=== PATIENT | female | born 1965 | race Caucasian/White ===

== ENCOUNTER → 2017-06-11 08:34 | Outpatient (CLI) | payer BC, SELFPAY ==
[2017-06-11 09:05] LABS: Hematocrit 25.8 % (37-47); Hemoglobin 8.2 g/dl (12.0-15.0)
[2017-06-11 09:15] VITALS: BP 115/67; PULSE 64; RESP 18; TEMP 36.1; O2SAT 92; BMI 28.8
== END ==
PROVIDERS: Family Provider Family Medicine; PCP Family Medicine; Visit Provider Internal Medicine Nephrology
DX: N18.9 Chronic kidney disease, unspecified (principal); D63.1 Anemia in chronic kidney disease
CPT/HCPCS: 85014; 85018; 96372; J0885

== ENCOUNTER → 2017-07-09 08:29 | Outpatient (CLI) | payer BC, SELFPAY ==
[2017-07-09 08:51] VITALS: BP 115/69; PULSE 69; RESP 16; TEMP 36.9; O2SAT 98; BMI 28.8
[2017-07-09 09:17] LABS: Hematocrit 26.9 % (37-47); Hemoglobin 8.5 g/dl (12.0-15.0)
== END ==
LOC: MEDOUTP 08:30
PROVIDERS: Family Provider Family Medicine; PCP Family Medicine; Visit Provider Internal Medicine Nephrology
DX: N18.4 Chronic kidney disease, stage 4 (severe) (principal); D63.1 Anemia in chronic kidney disease
CPT/HCPCS: 85014; 85018; 96372; J0885

== ENCOUNTER → 2017-08-06 08:24 | Outpatient (CLI) | payer BC, SELFPAY ==
[2017-08-06 08:32] VITALS: BP 125/78; PULSE 70; RESP 14; TEMP 36.4; O2SAT 98; BMI 27.9
[2017-08-06 08:47] LABS: Absolute Lymphocyte Count 1.01 X10^3/ul (0.83-4.51); Absolute Neutrophil Count 1.7 X10^3/uL (2.0-7.7); Basophil# 0.02 X10^3/uL; Basophil% 0.6 % (0-1); Eosinophil# 0.08 X10^3/uL; Eosinophils% 2.5 % (0-5); Hematocrit 26.4 % (37-47); Hemoglobin 8.5 g/dl (12.0-15.0); Lymphocyte # 1.01 X10^3/ul (4.0); Lymphocyte % 32.2 % (19-41); Mean Corp Hgb Conc 32.2 g/gl (32-36); Mean Corpuscular Hgb 31.5 pg (27.0-32.0); Mean Corpuscular Volume 97.8 fL (81-99); Mean Platelet Vol. 9.9 fl (6.2-12.0); Monocyte# 0.29 X10^3/uL; Monocyte% 9.2 % (0-10); Neutrophil # 1.74 X10^3/uL (2.7-7.7); Neutrophil % 55.5 % (47-70); Platelet Count 146 K/mm3 (150-450); RBC Distribution Width SD 41.4 fl (35.1-43.9); White Blood Count 3.1 K/mm3 (4.4-11.0)
[2017-08-06 08:49] LABS: POSITIVE COUNT NO; POSITIVE DIFFERENTIAL NO; POSITIVE MORPHOLOGY NO
[2017-08-06 09:04] LABS: Ferritin 79 ng/mL (8-252); Iron 77 ug/dL (50-170); Iron Binding Capacity,Total 265 ug/dL (250-450); PERCENT IRON SATURATION 29.1 % (15.0-55.0)
== END ==
LOC: MEDOUTP 08:24
PROVIDERS: Family Provider Family Medicine; PCP Family Medicine; Visit Provider Internal Medicine Nephrology
DX: N18.4 Chronic kidney disease, stage 4 (severe) (principal); D63.1 Anemia in chronic kidney disease
CPT/HCPCS: 36415; 82728; 83540; 83550; 85025; 96372; J0885

== ENCOUNTER → 2017-09-03 08:28 | Outpatient (CLI) | payer BC, SELFPAY ==
[2017-09-03 08:42] VITALS: BP 117/71; PULSE 65; RESP 16; TEMP 36.3; O2SAT 99; BMI 27.9
[2017-09-03 08:52] LABS: Absolute Lymphocyte Count 0.94 X10^3/ul (0.83-4.51); Absolute Neutrophil Count 2.4 X10^3/uL (2.0-7.7); Basophil# 0.02 X10^3/uL; Basophil% 0.5 % (0-1); Eosinophil# 0.06 X10^3/uL; Eosinophils% 1.6 % (0-5); Hematocrit 28.1 % (37-47); Lymphocyte # 0.94 X10^3/ul (4.0); Lymphocyte % 25.3 % (19-41); Mean Corpuscular Hgb 31.3 pg (27.0-32.0); Mean Corpuscular Volume 97.6 fL (81-99); Mean Platelet Vol. 10.5 fl (6.2-12.0); Monocyte# 0.31 X10^3/uL; Monocyte% 8.4 % (0-10); Neutrophil # 2.37 X10^3/uL (2.7-7.7); Neutrophil % 63.9 % (47-70); Platelet Count 167 K/mm3 (150-450); RBC Distribution Width CV 11.9 % (11.6-14.6); RBC Distribution Width SD 41.1 fl (35.1-43.9); Red Blood Count 2.88 M/mm3 (4.2-5.4); White Blood Count 3.7 K/mm3 (4.4-11.0)
[2017-09-03 08:54] LABS: POSITIVE COUNT NO; POSITIVE DIFFERENTIAL NO; POSITIVE MORPHOLOGY NO
[2017-09-03 16:35] LABS: Xtra Tube EP Lab EXTRA TUBE
== END ==
LOC: MEDOUTP 08:28
PROVIDERS: Family Provider Family Medicine; PCP Family Medicine; Visit Provider Internal Medicine Nephrology
DX: N18.4 Chronic kidney disease, stage 4 (severe) (principal); D63.1 Anemia in chronic kidney disease
CPT/HCPCS: 36415; 85025; 96372; J0885

== ENCOUNTER → 2017-10-15 08:27 | Outpatient (CLI) | payer BC, SELFPAY ==
[2017-10-15 08:41] VITALS: BP 117/73; PULSE 67; RESP 16; TEMP 36.9; O2SAT 98; BMI 28.3
[2017-10-15 08:59] LABS: Absolute Lymphocyte Count 1.01 X10^3/ul (0.83-4.51); Absolute Neutrophil Count 1.8 X10^3/uL (2.0-7.7); Basophil# 0.01 X10^3/uL; Basophil% 0.3 % (0-1); Eosinophil# 0.07 X10^3/uL; Eosinophils% 2.2 % (0-5); Hemoglobin 8.7 g/dl (12.0-15.0); Lymphocyte # 1.01 X10^3/ul (4.0); Lymphocyte % 32.4 % (19-41); Mean Corp Hgb Conc 32.2 g/gl (32-36); Mean Corpuscular Hgb 30.6 pg (27.0-32.0); Mean Corpuscular Volume 95.1 fL (81-99); Mean Platelet Vol. 10.2 fl (6.2-12.0); Monocyte# 0.19 X10^3/uL; Monocyte% 6.1 % (0-10); Neutrophil # 1.84 X10^3/uL (2.7-7.7); POSITIVE COUNT NO; POSITIVE DIFFERENTIAL NO; POSITIVE MORPHOLOGY NO; Platelet Count 109 K/mm3 (150-450); RBC Distribution Width CV 12.4 % (11.6-14.6); RBC Distribution Width SD 43.2 fl (35.1-43.9); Red Blood Count 2.84 M/mm3 (4.2-5.4); White Blood Count 3.1 K/mm3 (4.4-11.0)
== END ==
PROVIDERS: Family Provider Family Medicine; PCP Family Medicine; Visit Provider Internal Medicine Nephrology
DX: N18.9 Chronic kidney disease, unspecified (principal); D63.1 Anemia in chronic kidney disease
CPT/HCPCS: 36415; 85025; 96372; J0885

== ENCOUNTER → 2018-01-14 11:29 | Outpatient (CLI) | payer BC, SELFPAY ==
[2018-01-14 11:38] VITALS: BP 138/75; PULSE 63; RESP 15; TEMP 36.8; O2SAT 100; BMI 28.8
[2018-01-14 12:01] LABS: Absolute Lymphocyte Count 0.81 X10^3/ul (0.83-4.51); Absolute Neutrophil Count 2.7 X10^3/uL (2.0-7.7); Basophil# 0.02 X10^3/uL; Basophil% 0.5 % (0-1); Eosinophils% 2.5 % (0-5); Hemoglobin 8.4 g/dl (12.0-15.0); Lymphocyte # 0.81 X10^3/ul (4.0); Lymphocyte % 20.4 % (19-41); Mean Corp Hgb Conc 31.1 g/gl (32-36); Mean Corpuscular Hgb 30.8 pg (27.0-32.0); Mean Corpuscular Volume 98.9 fL (81-99); Mean Platelet Vol. 10.1 fl (6.2-12.0); Monocyte# 0.35 X10^3/uL; Monocyte% 8.8 % (0-10); Neutrophil # 2.68 X10^3/uL (2.7-7.7); Neutrophil % 67.5 % (47-70); Platelet Count 165 K/mm3 (150-450); RBC Distribution Width CV 12.2 % (11.6-14.6); RBC Distribution Width SD 42.2 fl (35.1-43.9); Red Blood Count 2.73 M/mm3 (4.2-5.4)
[2018-01-14 12:17] LABS: Ferritin 114 ng/mL (8-252); Iron 98 ug/dL (50-170); Iron Binding Capacity,Total 280 ug/dL (250-450)
[2018-01-14 12:25] LABS: POSITIVE COUNT NO; POSITIVE DIFFERENTIAL NO; POSITIVE MORPHOLOGY NO
== END ==
PROVIDERS: Family Provider Family Medicine; PCP Family Medicine; Referring Provider Internal Medicine Nephrology; Visit Provider Internal Medicine Nephrology
DX: N18.9 Chronic kidney disease, unspecified (principal); D63.1 Anemia in chronic kidney disease
CPT/HCPCS: 36415; 82728; 83540; 83550; 85025; 96372; J0885

== ENCOUNTER → 2018-02-18 08:54 | Outpatient (CLI) | payer BC, SELFPAY ==
[2018-02-18 09:17] VITALS: BP 130/77; PULSE 72; RESP 18; TEMP 37.6; O2SAT 98; BMI 28.8
[2018-02-18 09:46] LABS: Absolute Lymphocyte Count 0.76 X10^3/ul (0.83-4.51); Absolute Neutrophil Count 1.6 X10^3/uL (2.0-7.7); Basophil# 0.02 X10^3/uL; Basophil% 0.7 % (0-1); Eosinophil# 0.07 X10^3/uL; Eosinophils% 2.3 % (0-5); Hematocrit 24.9 % (37-47); Lymphocyte # 0.76 X10^3/ul (4.0); Mean Corp Hgb Conc 32.1 g/gl (32-36); Mean Corpuscular Hgb 31.3 pg (27.0-32.0); Mean Corpuscular Volume 97.3 fL (81-99); Mean Platelet Vol. 9.7 fl (6.2-12.0); Monocyte# 0.55 X10^3/uL; Monocyte% 18.1 % (0-10); Neutrophil # 1.64 X10^3/uL (2.7-7.7); Neutrophil % 53.9 % (47-70); POSITIVE COUNT NO; POSITIVE DIFFERENTIAL NO; POSITIVE MORPHOLOGY NO; Platelet Count 147 K/mm3 (150-450); RBC Distribution Width CV 12.6 % (11.6-14.6); Red Blood Count 2.56 M/mm3 (4.2-5.4)
--- OUTSIDE RECORDS SUMMARY | 2018-04-15 03:48 | XMS RPT_ITS ---
:1965 Author Organization OHIP Care Team Providers Name Role Phone SAMANTHA AGUIRRE (WEB PORTAL DEVELOPER) Attending Unavailable SAMANTHA AGUIRRE (WEB PORTAL DEVELOPER) Attending Unavailable WEE, MIKE C Referring Unavailable WEE, MIKE C Referring Unavailable WEE, MIKE C Referring Unavailable WEE, MIKE C Referring Unavailable SAMANTHA AGUIRRE (WEB PORTAL DEVELOPER) Attending Unavailable SAMANTHA AGUIRRE (WEB PORTAL DEVELOPER) Referring Unavailable WEE, MIKE C Referring Unavailable WEE, MIKE C Referring Unavailable WEE, MIKE C Referring Unavailable WEE, MIKE C Referring Unavailable Getachew, Jayaprakash Attending Unavailable Getachew, Jayaprakash Referring Unavailable Cebul III, Primary Care Unavailable Samantha Wall Attending Unavailable Samantha Wall Referring Unavailable Cebul III, Primary Care Unavailable Getachew, Jayaprakash Attending Unavailable Getachew, Jayaprakash Referring Unavailable Cebul III, Primary Care Unavailable Getachew, Jayaprakash Attending Unavailable Getachew, Jayaprakash Referring Unavailable Cebul III, Primary Care Unavailable Getachew, Jayaprakash Attending Unavailable Getachew, Jayaprakash Referring Unavailable Cebul III, Primary Care Unavailable Getachew, Jayaprakash Attending Unavailable Getachew, Jayaprakash Referring Unavailable Cebul III, Primary Care Unavailable Getachew, Jayaprakash Attending Unavailable Getachew, Jayaprakash Referring Unavailable Cebul III, Primary Care Unavailable Getachew, Jayaprakash Attending Unavailable Getachew, Jayaprakash Referring Unavailable Cebul III, Primary Care Unavailable Getachew, Jayaprakash Attending Unavailable Getachew, Jayaprakash Referring Unavailable Cebul III, Primary Care Unavailable PROBLEMS PROBLEMS DATE TYPE CONDITION / ATTENDING STATUS SOURCE CODE 02/23/2018 Unknown D63.1 - Anemia Getachew, Active [place] [facility] kidney [facility] / D63.1(ICD-10) Repository 12/03/2017 Active Encounter for NA Active [facility] screening [facility] [place] mammogram for Repository malignant neoplasm of breast / Z12.31(ICD-10) 08/12/2017 Active End stage renal NA Active [facility] disease / [facility] [place] N18.6(ICD-10) Repository 03/12/2017 Active Unknown / SAMANTHA AGUIRRE Active [facility] UNK(Unknown) (WEB PORTAL DEVELOPER) [place] Repository PROCEDURES PROCEDURES No Procedure Records FoundRESULTS RESULTS OT D/C OF NON Observed: 03/02/2018 Status: F Source: [place] RETURNING PT 10:13 AM [facility] REPOSITORY [facility] Occupational Therapy [facility] [address] [place], [place] [address] Fax REHABILITATION SERVICES DISCHARGE SUMMARY MR#: [id number] Acct: [id number] Name: ARIC ANNE Rep #: [id number] : 1965 53 From: Bindu OLIVA CHT Referring Dr.: Samantha DESHPANDE Status: REG RCR Eval Date: Discharge Date: HP - Discharge Summary - Patient Information ARIC ANNE was seen in my office for initial evaluation on 01/28/18. The following Plan of Care was established for this patient: Initial Frequency: 1x/Week Initial Duration: 2 Weeks - Anticipated Interventions Anticipated Interventions: Education re Diagnosis, Education re Self-Bandaging Techniques, Education re Skin Care and Precautions, Education re Correct Donning Tech,Care AND Wearing Sched Comp Garments This patient was last seen in our office 01/28/18. Pertinent comments regarding their Occupational therapy will appear below: Client was seen for inital OT eval only. Client was to return for ed. on LE wrap, edema mtg and use of compression socks. Client has not scheduled a follow up visit and due to timelapes in therapy services client is D/C at this time. At this point I will be discontinuing this patient from occupational therapy. I would be happy to see this patient again in the future if found appropriate by the physician. Thank you! HAZEL Ham CHT <Electronically signed by Bindu OLIVA CHT> 03/02/18 1013 CC: Frank Landis III, MD; Samantha DESHPANDE MK Signed PROGRESS Observed: 02/23/2018 Status: COMPLETED Source: [place] 3:08 PM [facility]ON[facility] REPOSITORY HNO ID: [id number] Author: Keegan Gallegos Service: (none) Author Type: Nurse Practitioner Type: Progress Notes Filed: 02/23/2018 3:09 PM Note Text: Subjective HPI Patient presents with: ST, cough, runny nose / drainage: x 1 week Denies any otc treatment for symptoms. Review of Systems Constitutional: Negative for chills, fever and malaise/fatigue. HENT: Positive for congestion and sore throat. Negative for ear pain. Eyes: Negative for discharge and redness. Respiratory: Positive for cough. Negative for hemoptysis, sputum production, shortness of breath and wheezing. Gastrointestinal: Negative for abdominal pain, diarrhea, nausea and vomiting. Skin: Negative for rash. Neurological: Negative for headaches. PAST MEDICAL HISTORY Diagnosis Date - Angioedema Needed intubation - Aortic sclerosis - CKD (chronic kidney disease) stage 4, GFR 15-29 ml/min ([facility]) - Essential hypertension, benign - Heart murmur 01/23/2011 - Hyperparathyroidism due to vitamin D deficiency ([facility]) 04/27/2013 - Lymphedema - Lymphedema of both lower extremities 06/06/2015 - Mitral regurgitation - Polycystic kidney disease 05/31/2012 - Unspecified hypothyroidism - Venous stasis dermatitis of both lower extremities 06/06/2015 - Vitamin D deficiency 04/27/2013 PAST SURGICAL HISTORY Procedure Laterality Date - BALLN ANGIOPLASTY,PERC VENOUS Left 11-01-15 - BX BREAST PERC NEED W/GUID 09/27/06 U/S needle core right breast bx - DELIVERY ONLY 1995 , low cervical - COLONOSCOP W/ OR W/O [facility] SPEC 03/08/15 Colonoscopy - OPN AV ANAS [employer]ARM RADHA TRANSP Left 07-01-15 - PAST SURGICAL HISTORY OF cyst on left hand--benign ALLERGIES Lisinopril; Norvasc [Amlodipine Besylate]; Sulfa (Sulfonamide Antibiotics) MEDICATIONS aMILoride (MIDAMOR) 5 mg tablet TAKE 1 TABLET BY MOUTH EVERY DAY cetirizine (ZYRTEC) 5 mg tablet Take 1 tablet by mouth once daily. levothyroxine (SYNTHROID) 75 mcg tablet Take 1 tablet by mouth once daily. labetalol (TRANDATE) 200 mg tablet Take 1 tablet by mouth twice daily. fluticasone (FLONASE) 50 mcg/actuation nasal spray Use 2 Sprays in each nostril once daily. Rinse mouth after use. furosemide (LASIX) 40 mg tablet TAKE 1 TABLET EVERY DAY atorvastatin (LIPITOR) 10 mg tablet Take 1 tablet by mouth once daily. FERROUS SULFATE (IRON ORAL) Take by mouth. Takes twice daily. Unsure of dosage. aspirin 81 mg chewable tablet Take 1 tablet by mouth once daily. Cholecalciferol, Vitamin D3, 2,000 unit cap Take 1 tablet by mouth once daily. cyanocobalamin (VITAMIN B-12) 1,000 mcg tab Take 1 tablet by mouth once daily. levonorgestrel (MIRENA) 20 mcg/24 hour (5 years) IUD INSERTED IN THE OFFICE Yqajgkcfrkngsgn-Skruimbut-KE (BROMFED DM) 2-30-10 mg/5 mL syrup Take 10 mL by mouth four times daily as needed for up to 7 days. FAMILY HISTORY Problem Relation Age of Onset - Hypertension Mother - Heart Mother ARTIFICIAL HEART VALVE - Breast Cancer Mother - Hypertension Father - Ischemic Heart Disease Father - other (ADPKD) Father - Hypertension Brother kidney disease,obesity - Asthma Son - Heart Son - Stroke Brother - Breast Cancer Maternal Aunt - other (ADPKD) Brother on dialysis - other (ESRD) Brother Social History Substance Use Topics - Smoking status: Never Smoker - Smokeless tobacco: Never Used - Alcohol use Yes Comment: rare Objective Physical Exam Constitutional: She is well-developed, well-nourished, and in no distress. HENT: Head: Normocephalic. Right Ear: Tympanic membrane, external ear and ear canal normal. Left Ear: Tympanic membrane, external ear and ear canal normal. Nose: Rhinorrhea present. Right sinus exhibits no maxillary sinus tenderness and no frontal sinus tenderness. Left sinus exhibits no maxillary sinus tenderness and no frontal sinus tenderness. Mouth/Throat: Posterior oropharyngeal erythema (PND) present. Eyes: Conjunctivae are normal. Neck: Normal range of motion. Neck supple. Cardiovascular: Normal rate, regular rhythm and normal heart sounds. Pulmonary/Chest: Effort normal and breath sounds normal. No respiratory distress. She has no wheezes. Abdominal: Soft. She exhibits no distension. There is no tenderness. Lymphadenopathy: She has no cervical adenopathy. Skin: Skin is warm and dry. No rash noted. Nursing note and vitals reviewed. ASSESSMENT/PLAN: 1. Viral URI with cough - ICD9: 465.9, ICD10: J06.9, B97.89 - Discussed viral etiology and rationale for treatment. - Symptomatic treatment with prn analgesia - Supportive care with fluids and rest - Follow up in 3-5 days if symptoms persist or sooner if worsening of symptoms Prescription instructions reviewed with patient as applicable. Patient advised if symptoms do not improve or if symptoms worsen sooner, to contact their primary care physician. Potential red flag symptoms discussed with the patient. Reviewed appropriate action plan to take if red flag symptoms occur. Patient agreeable to treatment plan. Keegan Gallegos APRN.MARTINE CNOV Observed: 02/23/2018 Status: COMPLETED Source: [place] 10:30 AM [facility] REPOSITORY Office Visit (WSTR) ARIC ANNE ([id number]) 1965 F TRN Date Time Provider Department 02/23/18 10:30 AM KEEGAN GALLEGOS (WEB PORTAL DEVELOPER) WSTR During your visit today, we recorded the following information about you: Temperature Pulse Respiration Blood pressure 97.4 degrees 60/minute 16/minute 138/84 Weight 83.8 kg Keegan Gallegos APRN.MARTINE 02/23/2018 10:50 AM Addendum Treatment for Viral Upper Respiratory Tract Infections Your body will kill off the virus by itself. Additionally, you can prime your body's immune system. This may help you get better more quickly. 1. Drink lots of fluids - at least one gallon of non-caffeinated liquids per day 2. Make sure you are eating well 3. Get plenty of rest - at least 8 hours of sleep per night for adults and more for children We do not have any medications that kill off these viruses. Antibiotics are used to treat bacterial infections; however, they are not active against viral infections. There are some things that might help you feel better, though. 1. Vaporizers, humidifiers, hot showers, and hot fluids help open respiratory and sinus passages 2. Sudafed is a safe and effective decongestant 3. Millen Nasal [place] may offer relief of nasal and head congestion 4. Hans's Vapor Rub placed on a hot towel and draped over the head may relieve congestion 5. Tylenol and Advil help control fevers and headaches 6. Salt water gargles help relieve sore throats 7. Chloraceptic spray or throat lozenges may also help relieve sore throat symptoms 8. Robitussin DM will help loosen up secretions and also provide relief from a cough Occasionally, viral infections turn into something more serious. You should see your doctor or return to the Urgent Care if: 1. You have fevers for longer than five days 2. You have fevers above 102 degrees 3. You are still sick after 10 days 4. You have shortness of breath or wheezing 5. After several days you are getting worse rather than better Keegan Gallegos APRN.MARTINE 02/23/2018 3:09 PM Signed Subjective HPI Patient presents with: ST, cough, runny nose / drainage: x 1 week Denies any otc treatment for symptoms. Review of Systems Constitutional: Negative for chills, fever and malaise/fatigue. HENT: Positive for congestion and sore throat. Negative for ear pain. Eyes: Negative for discharge and redness. Respiratory: Positive for cough. Negative for hemoptysis, sputum production, shortness of breath and wheezing. Gastrointestinal: Negative for abdominal pain, diarrhea, nausea and vomiting. Skin: Negative for rash. Neurological: Negative for headaches. PAST MEDICAL HISTORY Diagnosis Date - Angioedema Needed intubation - Aortic sclerosis - CKD (chronic kidney disease) stage 4, GFR 15-29 ml/min ([facility]) - Essential hypertension, benign - Heart murmur 01/23/2011 - Hyperparathyroidism due to vitamin D deficiency ([facility]) 04/27/2013 - Lymphedema - Lymphedema of both lower extremities 06/06/2015 - Mitral regurgitation - Polycystic kidney disease 05/31/2012 - Unspecified hypothyroidism - Venous stasis dermatitis of both lower extremities 06/06/2015 - Vitamin D deficiency 04/27/2013 PAST SURGICAL HISTORY Procedure Laterality Date - BALLN ANGIOPLASTY,PERC VENOUS Left 11-01-15 - BX BREAST PERC NEED W/GUID 09/27/06 U/S needle core right breast bx - DELIVERY ONLY 1995 , low cervical - COLONOSCOP W/ OR W/O [facility] SPEC 03/08/15 Colonoscopy - OPN AV ANAS FORARM RADHA TRANSP Left 07-01-15 - PAST SURGICAL HISTORY OF cyst on left hand--benign ALLERGIES Lisinopril; Norvasc [Amlodipine Besylate]; Sulfa (Sulfonamide Antibiotics) MEDICATIONS aMILoride (MIDAMOR) 5 mg tablet TAKE 1 TABLET BY MOUTH EVERY DAY cetirizine (ZYRTEC) 5 mg tablet Take 1 tablet by mouth once daily. levothyroxine (SYNTHROID) 75 mcg tablet Take 1 tablet by mouth once daily. labetalol (TRANDATE) 200 mg tablet Take 1 tablet by mouth twice daily. fluticasone (FLONASE) 50 mcg/actuation nasal spray Use 2 Sprays in each nostril once daily. Rinse mouth after use. furosemide (LASIX) 40 mg tablet TAKE 1 TABLET EVERY DAY atorvastatin (LIPITOR) 10 mg tablet Take 1 tablet by mouth once daily. FERROUS SULFATE (IRON ORAL) Take by mouth. Takes twice daily. Unsure of dosage. aspirin 81 mg chewable tablet Take 1 tablet by mouth once daily. Cholecalciferol, Vitamin D3, 2,000 unit cap Take 1 tablet by mouth once daily. cyanocobalamin (VITAMIN B-12) 1,000 mcg tab Take 1 tablet by mouth once daily. levonorgestrel (MIRENA) 20 mcg/24 hour (5 years) IUD INSERTED IN THE OFFICE Frpialjberzregf-Vnhozmkbw-AH (BROMFED DM) 2-30-10 mg/5 mL syrup Take 10 mL by mouth four times daily as needed for up to 7 days. FAMILY HISTORY Problem Relation Age of Onset - Hypertension Mother - Heart Mother ARTIFICIAL HEART VALVE - Breast Cancer Mother - Hypertension Father - Ischemic Heart Disease Father - other (ADPKD) Father - Hypertension Brother kidney disease,obesity - Asthma Son - Heart Son - Stroke Brother - Breast Cancer Maternal Aunt - other (ADPKD) Brother on dialysis - other (ESRD) Brother Social History Substance Use Topics - Smoking status: Never Smoker - Smokeless tobacco: Never Used - Alcohol use Yes Comment: rare Objective Physical Exam Constitutional: She is well-developed, well-nourished, and in no distress. HENT: Head: Normocephalic. Right Ear: Tympanic membrane, external ear and ear canal normal. Left Ear: Tympanic membrane, external ear and ear canal normal. Nose: Rhinorrhea present. Right sinus exhibits no maxillary sinus tenderness and no frontal sinus tenderness. Left sinus exhibits no maxillary sinus tenderness and no frontal sinus tenderness. Mouth/Throat: Posterior oropharyngeal erythema (PND) present. Eyes: Conjunctivae are normal. Neck: Normal range of motion. Neck supple. Cardiovascular: Normal rate, regular rhythm and normal heart sounds. Pulmonary/Chest: Effort normal and breath sounds normal. No respiratory distress. She has no wheezes. Abdominal: Soft. She exhibits no distension. There is no tenderness. Lymphadenopathy: She has no cervical adenopathy. Skin: Skin is warm and dry. No rash noted. Nursing note and vitals reviewed. ASSESSMENT/PLAN: 1. Viral URI with cough - ICD9: 465.9, ICD10: J06.9, B97.89 - Discussed viral etiology and rationale for treatment. - Symptomatic treatment with prn analgesia - Supportive care with fluids and rest - Follow up in 3-5 days if symptoms persist or sooner if worsening of symptoms Prescription instructions reviewed with patient as applicable. Patient advised if symptoms do not improve or if symptoms worsen sooner, to contact their primary care physician. Potential red flag symptoms discussed with the patient. Reviewed appropriate action plan to take if red flag symptoms occur. Patient agreeable to treatment plan. Keegan Gallegos APRN.TRANSIT PLANNING DIRECTOR Referring Provider: SELF [[id number]] Allergies As of Date: 02/23/2018 Noted Allergy Reaction LISINOPRIL 09/28/2011 7 - Swelling Comments: Tongue swelling. NORVASC (AMLODIPINE BESYLATE) 06/29/2016 7 - Swelling SULFA (SULFONAMIDE ANTIBIOTICS) 12/15/2004 Date Reviewed: 02/23/2018 Reviewed by: Catarina Laura LPN - Fully Assessed Reason for Visit: ST, cough, runny nose / drainage [Other] Cmt: x 1 week Primary Visit Diagnosis:Viral URI with cough [J06.9, B97.89] Order(s):Wvqnsalevjzxppd-Tgopexvnh-ZY (BROMFED DM) 2-30-10 mg/5 mL syrupTake 10 mL by mouth four times daily as needed for up to 7 days.Disp: 240 mLRfl: 0 Prescriptions as of 02/23/2018 Sig: AMILORIDE 5 MG TABLET TAKE 1 TABLET BY MOUTH EVERY * CETIRIZINE 5 MG TABLET Take 1 tablet by mouth once d* LEVOTHYROXINE 75 MCG TABLET Take 1 tablet by mouth once d* LABETALOL 200 MG TABLET Take 1 tablet by mouth twice * FLUTICASONE 50 MCG/ACTUATION * Use 2 Sprays in each nostril * FUROSEMIDE 40 MG TABLET TAKE 1 TABLET EVERY DAY ATORVASTATIN 10 MG TABLET Take 1 tablet by mouth once d* IRON ORAL Take by mouth. Takes twice d* ASPIRIN 81 MG CHEWABLE TABLET Take 1 tablet by mouth once d* CHOLECALCIFEROL (VITAMIN D3) * Take 1 tablet by mouth once d* CYANOCOBALAMIN (VIT B-12) 1,0* Take 1 tablet by mouth once d* LEVONORGESTREL 20 MCG/24 HR (* INSERTED IN THE OFFICE BROMPHENIRAMINE-PSEUDOEPHEDRI* Take 10 mL by mouth four time* Problem List As Of Date 02/23/2018 Noted Resolved BENIGN HYPERTENSION [I10] INVALID FOR* Hypothyroidism [E03.9] INVALID FOR* Hyperlipidemia LDL goal <100 [E78.5] INVALID FOR* Abnormal mammogram, unspecified [R92.8] INVALID FOR*02/02/2014 Alopecia [L65.9] INVALID FOR* Heart murmur [R01.1] INVALID FOR*07/05/2014 Polycystic kidney disease [Q61.3] INVALID FOR* CKD (chronic kidney disease) stage 3, GFR 30-59*INVALID FOR*07/05/2014 Hyperparathyroidism due to vitamin D deficiency*INVALID FOR* Vitamin D deficiency [E55.9] INVALID FOR* Aortic sclerosis (HCC) [BVT7636] INVALID FOR* Mitral regurgitation [I34.0] INVALID FOR* Chronic kidney disease, stage IV (severe) (HCC)*INVALID FOR* More... Colon cancer screening [Z12.11] INVALID FOR*03/08/2015 Lymphedema of both lower extremities [I89.0] INVALID FOR* Venous stasis dermatitis of both lower extremit*INVALID FOR* Complication of arteriovenous dialysis fistula *INVALID FOR* Other instructions from your clinician: Treatment for Viral Upper Respiratory Tract Infections Your body will kill off the virus by itself. Additionally, you can prime your body's immune system. This may help you get better more quickly. 1. Drink lots of fluids - at least one gallon of non-caffeinated liquids per day 2. Make sure you are eating well 3. Get plenty of rest - at least 8 hours of sleep per night for adults and more for children We do not have any medications that kill off these viruses. Antibiotics are used to treat bacterial infections; however, they are not active against viral infections. There are some things that might help you feel better, though. 1. Vaporizers, humidifiers, hot showers, and hot fluids help open respiratory and sinus passages 2. Sudafed is a safe and effective decongestant 3. Millen Nasal [place] may offer relief of nasal and head congestion 4. Hans's Vapor Rub placed on a hot towel and draped over the head may relieve congestion 5. Tylenol and Advil help control fevers and headaches 6. Salt water gargles help relieve sore throats 7. Chloraceptic spray or throat lozenges may also help relieve sore throat symptoms 8. Robitussin DM will help loosen up secretions and also provide relief from a cough Occasionally, viral infections turn into something more serious. You should see your doctor or return to the Urgent Care if: 1. You have fevers for longer than five days 2. You have fevers above 102 degrees 3. You are still sick after 10 days 4. You have shortness of breath or wheezing 5. After several days you are getting worse rather than better Prescriptions ordered this encounter Disp Refills Start End MVJMLAGMVADYRDK-SNHINNLPIWLKCPX-CJ 2* 240 * 0 02/23/2018 03/02/2018 Route: ORAL Sig: Take 10 mL by mouth four times daily as needed for up to 7 days. Disposition: Return if symptoms worsen or fail to improve. Follow-up and Disposition History Recorded Encounter Status:Closed by KEEGAN GALLEGOS on 02/23/18 CBC W/DIFF, AUTOMATED Collected: 02/18/2018 Status: F Source: [place] 9:02 AM [facility] REPOSITORY TYPE CODE TESTS RESULT OUT OF RANGE REFERENCE UNITS LAB L100.1000 4.4-11.0 K/mm3 Low WBC 3.0 LAB L100.1200 4.2-5.4 M/mm3 Low RBC 2.56 LAB L100.1300 12.0-15.0 g/dl Low HGB 8.0 LAB L100.1400 37-47 % Low HCT 24.9 LAB L100.1500 81-99 fL Normal MCV 97.3 LAB L100.1600 27.0-32.0 pg Normal MCH 31.3 LAB L100.1700 32-36 g/gl Normal MCHC 32.1 LAB L100.1810 11.6-14.6 % Normal RDW CV 12.6 LAB L100.1820 35.1-43.9 fl High RDW SD 45.0 LAB L100.1900 150-450 K/mm3 Low PLT 147 LAB L100.2000 6.2-12.0 fl Normal MPV 9.7 LAB L100.2100 47-70 % Normal NEUT% 53.9 LAB L100.2200 19-41 % Normal LY% 25.0 LAB L100.2300 0-10 % High MONO% 18.1 LAB L100.2400 0-5 % Normal EO% 2.3 LAB L100.2500 0-1 % Normal BASO% 0.7 LAB L100.2550 0.0-0.9 % Normal IM GRAN % 0.000 Result Comment: IG% - Immature Granulocytes (promyelocytes, myelocytes and metamyelocytes) > 1% indicates that a LEFT SHIFT is Present. LAB L100.2620 2.0-7.7 X10 3/uL Low Absolute Neut 1.6 LAB L100.2720 0.83-4.51 X10 3/ul Low Absolute Lymph 0.76 Performed By: #### L100.0100 #### [facility] [address] [place], [place], [address] OT GENERAL EVALUATION Observed: 02/01/2018 Status: F Source: [place] 12:17 PM [facility] REPOSITORY [facility] Occup[facility] [address] [place] [address]. [address] [place] [address] Fax REHABILITATION SERVICES INITIAL EVALUATION MR#: [id number] Acct: [id number] Name: ARIC ANNE Rep #: [id number] : 1965 52 From: Bindu OLIVA CHT Referring Dr.: Samantha DESHPANDE Status: REG RCR [facility] Date[facility] SELF PAY INSURANCE Patient's Visit Information ARIC ANNE is a 52 year old F, referred to Occupational Therapy by VITO Jorge, with a diagnosis of LE lymphedema. Date of Evaluation: 01/28/18 Occupational Therapist: HAZEL Ham, KATHIAT - Subjective Subjective: Pt states she has had lymphedema for years. Pt states as a child she has always had swelling on and off. Pt arrives with isaiah warp on her LE. Pt states she does not notice that her leg goes down with sleeping. states some elevation. PT states she did get a compression sock about a year ago, but it did not help and would cause pain. pt states she does have skin issues and has had wounds before. Pt is not sure what compression class her socks were. Pt works 7 hours a day 5 days a week and her leg is more swollen when she gets home. Pt is on a water pill but this does not help her leg. pt states she needs to find something that will work. - Lymphedema (Circumferential Measure) Mid-foot: Right 28cm left 25cm Ankle: right 30cm left 27cm Lower calf: right 48cm left 37cm Largest calf: right 48cm left 32cm Below knee: right 41cm left 38cm - Lower Limb Functional Index Lower Extremity Functional Score: 43 - Goals Demonstrate a 20% reduction in edema by d/c: Yes Demonstrate adequate knowledge of self-bangaging by 1st week: Yes Demonstrate adequate knowledge of self-massage by 2nd week: Yes Demonstrate adequate knowledge skin care/prec by 2nd week: Yes Demonstrate adequate knowledge therapeutic exercises by d/c: Yes Select approp compression garment w/donning/care/wear by d/c: Yes Voice need to replace compression garment every 4-6mo by dc: Yes - Rehabilitation General Assessment: Pt demo with right LE lymphedema stage 2. Therapist ed. pt on lymphedema treatments. Due to cost of alternative compression garments pt would like to pursue short stretch wraps. Pt was given information where she can purchase short stretch compression wraps. Pt agreed and will call and schedule apt when she has the wraps. Pt also ed. on skin care, lymph stim ex and self manual lymph drainage. Rehabilitation Potential: Questionable - Anticipated Interventions Anticipated Interventions: Education re Diagnosis, Education re Self-Bandaging Techniques, Education re Skin Care and Precautions, Education re Correct Donning Tech,Care AND Wearing Sched Comp Garments - Visit Plan Frequency: 1x/Week Duration: 2 Weeks TEXT: Thank you for the opportunity to evaluate your patient. For Medicare and Medicare HMO plans, please review the plan of care and approve it. It will need to be FAXED BACK to us at [phone] for Medicare purposes. Please let me know if there are questions or concerns regarding this plan of care. Physician Signature: Date: <Electronically signed by Bindu OLIVA CHT> 02/01/18 1217 CC: Frank Landis III, MD; Samantha DESHPANDE MK Signed For Medicare only, by signing this I certify the plan of care. Physicians Signature Date CNCO Observed: 01/28/2018 Status: COMPLETED Source: [place] 12:00 AM [facility] REPOSITORY Letter Text Kidney and Pancreas Transplant Pre-Transplant Department January 28, 2018 Dear Patient, The Centers for Medicare AND Medicaid Services (CMS), a branch of the U.S. Department of Health and Human Services, is the federal agency that administers the Medicare program and monitors the Medicaid programs offered by each state. As a Medicare approved transplant program, we are required to provide you with our most recent one year patient and graft survival on a regular basis. The data is published by the Scientific Registry of Transplant Recipients (SRTR) which is the national database for organ transplant statistics. More information regarding SRTR can be found online at www.srtr.org. The information below reflects outcomes for patients following transplant for the following time period: Kidney Transplant SRTR Report: Release Date: 12/28/2017 Transplants from donors performed between 03/22/2014 and 09/18/2016 [facility] Results Expected Results [place] Results Adult 1 yr. Graft Survival* 90.42% 94.36% 94.23% Adult 1 yr. Patient Survival 95.68% 97.11% 96.73% Pediatric 1 yr. Graft Survival 91.67% 97.93% 97.93% Pediatric 1 yr. Patient Survival 100.00% 99.76% 99.76% *Adult kidney transplant results at [facility] for 1-year graft survival outcomes were lower than the expected results. Pediatric kidney transplant results at [facility] for 1-year graft survival outcomes were lower than the expected results. Kidney Transplant SRTR Report: Release Date: 12/28/2017 Transplants from living donors performed between 03/22/2014 and 09/18/2016 [facility] Results Expected Results [place] Results Adult 1 yr. Graft Survival* 93.87% 98.01% 98.00% Adult 1 yr. Patient Survival 100.00% 99.16% 99.09% Pediatric 1 yr. Graft Survival 100.00% 98.39% 98.38% Pediatric 1 yr. Patient Survival 100.00% 99.83% 99.83% *Adult kidney transplant results at [facility] for 1-year graft survival outcomes were lower than the expected results. Kidney-Pancreas Transplant SRTR Report: Release Date: 12/28/2017 Transplants from donors performed between 04/05/2014 and 09/18/2016 [facility] Results Expected Results [place] Results Adult 1 yr. Graft Survival: Kidney* 90.48% 95.62% 96.16% Adult 1 yr. Patient Survival: Kidney-Pancreas 90.48% 97.13% 97.56% Adult 1 yr. Graft Survival: Pancreas Pancreas graft survival is not currently reported by SRTR. *Kidney-pancreas transplant results at [facility] for 1-year graft survival outcomes were lower than the expected results. Pancreas Transplant SRTR Report: Release Date: 12/28/2017 Transplants from donors performed between 03/22/2014 and 09/18/2016 [facility] Results Expected Results [place] Results Adult 1 yr. Patient Survival: Pancreas alone* 100.00% --% --% Adult 1 yr. Patient Survival: Pancreas after Kidney Transplant -- -- -- Adult 1 yr. Graft Survival: Pancreas Pancreas graft survival is not currently reported by SRTR. *The expected number of patient deaths are not calculated for adult (18+) recipients. The program did not perform any pancreas after kidney transplants during ?09/18/2016. Determination of ?expected? survival figures involves complicated mathematical models. Such models do not always reflect accurately the complexity and severity of patients at our center. Please see the attached SRTR summary data sheet. We also ask that you take this opportunity and send us any changes to your insurance or contact information including addresses, home phone and cell phone numbers. Maintaining updated and accurate information on file with the transplant program is important in minimizing delays at the time of an organ offer. You have received this letter because you are on our transplant waiting list. Should you have any questions please feel free to call your coordinator or the [facility] Transplant Program at [phone]. Sincerely, The [facility] Kidney and Pancreas Transplant Team IRON+IRON BINDING Collected: 01/14/2018 Status: F Source: [facility] 11:33 AM [facility] REPOSITORY TYPE CODE TESTS RESULT OUT OF RANGE REFERENCE UNITS LAB L503.6075 250-450 ug/dL TIBC Normal 280 LAB L503.6150 50-170 ug/dL IRON Normal 98 LAB L503.6250 15.0-55.0 % IRON Normal SATURATION 35.0 Performed By: #### L503.6030, L503.6550 #### [facility] [address] [place], [address] FERRITIN Collected: 01/14/2018 Status: F Source: [place] 11:33 AM [facility] REPOSITORY TYPE CODE TESTS RESULT OUT OF RANGE REFERENCE UNITS LAB L503.6550 8-252 ng/mL Normal FERRITIN 114 Performed By: #### L503.6030, L503.6550 #### [facility] [address] [place], [address] CBC W/DIFF, AUTOMATED Collected: 01/14/2018 Status: F Source: [place] 11:33 AM [facility] REPOSITORY TYPE CODE TESTS RESULT OUT OF RANGE REFERENCE UNITS LAB L100.1000 4.4-11.0 K/mm3 Low WBC 4.0 LAB L100.1200 4.2-5.4 M/mm3 Low RBC 2.73 LAB L100.1300 12.0-15.0 g/dl Low HGB 8.4 LAB L100.1400 37-47 % Low HCT 27.0 LAB L100.1500 81-99 fL Normal MCV 98.9 LAB L100.1600 27.0-32.0 pg Normal MCH 30.8 LAB L100.1700 32-36 g/gl Low MCHC 31.1 LAB L100.1810 11.6-14.6 % Normal RDW CV 12.2 LAB L100.1820 35.1-43.9 fl Normal RDW SD 42.2 LAB L100.1900 150-450 K/mm3 Normal PLT 165 LAB L100.2000 6.2-12.0 fl Normal MPV 10.1 LAB L100.2100 47-70 % Normal NEUT% 67.5 LAB L100.2200 19-41 % Normal LY% 20.4 LAB L100.2300 0-10 % Normal MONO% 8.8 LAB L100.2400 0-5 % Normal EO% 2.5 LAB L100.2500 0-1 % Normal BASO% 0.5 LAB L100.2550 0.0-0.9 % Normal IM GRAN % 0.300 Result Comment: IG% - Immature Granulocytes (promyelocytes, myelocytes and metamyelocytes) > 1% indicates that a LEFT SHIFT is Present. LAB L100.2620 2.0-7.7 X10 3/uL Normal Absolute Neut 2.7 LAB L100.2720 0.83-4.51 X10 3/ul Low Absolute Lymph 0.81 Performed By: #### L100.0100 #### [facility] [address] [place] [address]. [place], [address] PROGRESS Observed: 12/24/2017 Status: COMPLETED Source: [place] 1:06 PM [facility] REPOSITORY HNO ID: [id number] Author: Serg Mccall (Sw) Service: (none) Author Type: Brazer Helper Induction Type: Progress Notes Filed: 12/24/2017 1:08 PM Note Text: Gibran received [facility] application for help with prescription costs in regards to kidney medication. Gibran will mail to patient for review and to complete and send back to ANTONIA oRwley [facility]. Gibran spoke with patient and her hours will be changing soon and patient will come back in to see Gibran for assistance with disability. PROGRESS Observed: 12/22/2017 Status: COMPLETED Source: [place] 12:39 PM [facility] REPOSITORY HNO ID: [id number] Author: Leyda Esparza Service: (none) Author Type: Nurse Practitioner Type: Progress Notes Filed: 12/22/2017 12:55 PM Note Text: Subjective The history is provided by the patient. Aric Anne is a 52 year old female who presents with sore throat, cough and runny nose for the past 4 days. She thinks she has allergies. No known sick contacts. She has taken OTC allergy medication (diphenhydramine) at home. She would like to have allergy testing done. Her son has a lot of environmental allergies. They recently got a cat in the home. Review of Systems Constitutional: Negative. Negative for fever. HENT: Positive for congestion and sore throat. Negative for ear pain. Respiratory: Positive for cough. Negative for shortness of breath. Cardiovascular: Negative. Negative for chest pain. Gastrointestinal: Negative. Negative for abdominal pain, diarrhea, nausea and vomiting. Musculoskeletal: Negative. Negative for myalgias. Skin: Negative. Negative for rash. Neurological: Negative. Negative for headaches. BP 132/84 Pulse 78 Temp 36.7 ?C (98 ?F) (Tympanic) Resp 18 Wt 78 kg (172 lb) SpO2 97% BMI 27.97 kg/m? PAST MEDICAL HISTORY Diagnosis Date - Angioedema Needed intubation - Aortic sclerosis - CKD (chronic kidney disease) stage 4, GFR 15-29 ml/min ([facility]) - Essential hypertension, benign - Heart murmur 01/23/2011 - Hyperparathyroidism due to vitamin D deficiency ([facility]) 04/27/2013 - Lymphedema - Lymphedema of both lower extremities 06/06/2015 - Mitral regurgitation - Polycystic kidney disease 05/31/2012 - Unspecified hypothyroidism - Venous stasis dermatitis of both lower extremities 06/06/2015 - Vitamin D deficiency 04/27/2013 PAST SURGICAL HISTORY Procedure Laterality Date - BALLN ANGIOPLASTY,PERC VENOUS Left 11-01-15 - BX BREAST PERC NEED W/GUID 09/27/06 U/S needle core right breast bx - DELIVERY ONLY 1995 , low cervical - COLONOSCOP W/ OR W/O [facility] SPEC 03/08/15 Colonoscopy - OPN AV ANAS FORARM RADHA TRANSP Left 07-01-15 - PAST SURGICAL HISTORY OF cyst on left hand--benign ALLERGIES Lisinopril; Norvasc [Amlodipine Besylate]; Sulfa (Sulfonamide Antibiotics) MEDICATIONS levothyroxine (SYNTHROID) 75 mcg tablet Take 1 tablet by mouth once daily. labetalol (TRANDATE) 200 mg tablet Take 1 tablet by mouth twice daily. fluticasone (FLONASE) 50 mcg/actuation nasal spray Use 2 Sprays in each nostril once daily. Rinse mouth after use. furosemide (LASIX) 40 mg tablet TAKE 1 TABLET EVERY DAY atorvastatin (LIPITOR) 10 mg tablet Take 1 tablet by mouth once daily. aMILoride (MIDAMOR) 5 mg tablet Take 1 tablet by mouth once daily. FERROUS SULFATE (IRON ORAL) Take by mouth. Takes twice daily. Unsure of dosage. aspirin 81 mg chewable tablet Take 1 tablet by mouth once daily. Cholecalciferol, Vitamin D3, 2,000 unit cap Take 1 tablet by mouth once daily. cyanocobalamin (VITAMIN B-12) 1,000 mcg tab Take 1 tablet by mouth once daily. levonorgestrel (MIRENA) 20 mcg/24 hour (5 years) IUD INSERTED IN THE OFFICE FAMILY HISTORY Problem Relation Age of Onset - Hypertension Mother - Heart Mother ARTIFICIAL HEART VALVE - Breast Cancer Mother - Hypertension Father - Ischemic Heart Disease Father - other (ADPKD) Father - Hypertension Brother kidney disease,obesity - Asthma Son - Heart Son - Stroke Brother - Breast Cancer Maternal Aunt - other (ADPKD) Brother on dialysis - other (ESRD) Brother Social History Substance Use Topics - Smoking status: Never Smoker - Smokeless tobacco: Never Used - Alcohol use Yes Comment: rare Objective Physical Exam Constitutional: She is well-developed, well-nourished, and in no distress. HENT: Right Ear: Tympanic membrane, external ear and ear canal normal. Left Ear: Tympanic membrane, external ear and ear canal normal. Nose: Rhinorrhea present. Mouth/Throat: Uvula is midline, oropharynx is clear and moist and mucous membranes are normal. No posterior oropharyngeal edema or posterior oropharyngeal erythema. Eyes: Conjunctivae are normal. Right eye exhibits no discharge. Left eye exhibits no discharge. Neck: Neck supple. Cardiovascular: Normal rate and regular rhythm. Pulmonary/Chest: Effort normal and breath sounds normal. No respiratory distress. She has no wheezes. Lymphadenopathy: She has no cervical adenopathy. Neurological: She is alert. Skin: Skin is warm and dry. Nursing note and vitals reviewed. ASSESSMENT/PLAN: 1. Allergic rhinitis, unspecified seasonality, unspecified trigger - ICD9: 477.9, ICD10: J30.9 - CETIRIZINE 5 MG TABLET- dosage adjusted due to kidney function. - CONSULT TO ENT - Follow-up with your PCP in 3-5 days if symptoms have not improved or sooner if symptoms worsen - Discussed red flags and need for immediate medical evaluation if any occur. - Discussed supportive care treatment with fluids, rest and analgesia. - Discussed expected course of illness Leyda Esparza APRN.CNP CNOV Observed: 12/22/2017 Status: COMPLETED Source: [place] 12:30 PM [facility] REPOSITORY Office Visit (UCWSTR) ARIC ANNE ([id number]) 1965 F TRN Date Time Provider Department 12/22/17 12:30 PM LEYDA ESPARZA (MARTINE) WSTR During your visit today, we recorded the following information about you: Temperature Pulse Respiration Blood pressure 98 degrees 78/minute 18/minute 132/84 Weight 78 kg Leyda Esparza APRN.CNP 12/22/2017 12:55 PM Signed Subjective The history is provided by the patient. Aric Anne is a 52 year old female who presents with sore throat, cough and runny nose for the past 4 days. She thinks she has allergies. No known sick contacts. She has taken OTC allergy medication (diphenhydramine) at home. She would like to have allergy testing done. Her son has a lot of environmental allergies. They recently got a cat in the home. Review of Systems Constitutional: Negative. Negative for fever. HENT: Positive for congestion and sore throat. Negative for ear pain. Respiratory: Positive for cough. Negative for shortness of breath. Cardiovascular: Negative. Negative for chest pain. Gastrointestinal: Negative. Negative for abdominal pain, diarrhea, nausea and vomiting. Musculoskeletal: Negative. Negative for myalgias. Skin: Negative. Negative for rash. Neurological: Negative. Negative for headaches. BP 132/84 Pulse 78 Temp 36.7 ?C (98 ?F) (Tympanic) Resp 18 Wt 78 kg (172 lb) SpO2 97% BMI 27.97 kg/m? PAST MEDICAL HISTORY Diagnosis Date - Angioedema Needed intubation - Aortic sclerosis - CKD (chronic kidney disease) stage 4, GFR 15-29 ml/min ([facility]) - Essential hypertension, benign - Heart murmur 01/23/2011 - Hyperparathyroidism due to vitamin D deficiency ([facility]) 04/27/2013 - Lymphedema - Lymphedema of both lower extremities 06/06/2015 - Mitral regurgitation - Polycystic kidney disease 05/31/2012 - Unspecified hypothyroidism - Venous stasis dermatitis of both lower extremities 06/06/2015 - Vitamin D deficiency 04/27/2013 PAST SURGICAL HISTORY Procedure Laterality Date - BALLN ANGIOPLASTY,PERC VENOUS Left 11-01-15 - BX BREAST PERC NEED W/GUID 09/27/06 U/S needle core right breast bx - DELIVERY ONLY 1995 , low cervical - COLONOSCOP W/ OR W/O [facility] SPEC 03/08/15 Colonoscopy - OPN AV ANAS FORARM RADHA TRANSP Left 07-01-15 - PAST SURGICAL HISTORY OF cyst on left hand--benign ALLERGIES Lisinopril; Norvasc [Amlodipine Besylate]; Sulfa (Sulfonamide Antibiotics) MEDICATIONS levothyroxine (SYNTHROID) 75 mcg tablet Take 1 tablet by mouth once daily. labetalol (TRANDATE) 200 mg tablet Take 1 tablet by mouth twice daily. fluticasone (FLONASE) 50 mcg/actuation nasal spray Use 2 Sprays in each nostril once daily. Rinse mouth after use. furosemide (LASIX) 40 mg tablet TAKE 1 TABLET EVERY DAY atorvastatin (LIPITOR) 10 mg tablet Take 1 tablet by mouth once daily. aMILoride (MIDAMOR) 5 mg tablet Take 1 tablet by mouth once daily. FERROUS SULFATE (IRON ORAL) Take by mouth. Takes twice daily. Unsure of dosage. aspirin 81 mg chewable tablet Take 1 tablet by mouth once daily. Cholecalciferol, Vitamin D3, 2,000 unit cap Take 1 tablet by mouth once daily. cyanocobalamin (VITAMIN B-12) 1,000 mcg tab Take 1 tablet by mouth once daily. levonorgestrel (MIRENA) 20 mcg/24 hour (5 years) IUD INSERTED IN THE OFFICE FAMILY HISTORY Problem Relation Age of Onset - Hypertension Mother - Heart Mother ARTIFICIAL HEART VALVE - Breast Cancer Mother - Hypertension Father - Ischemic Heart Disease Father - other (ADPKD) Father - Hypertension Brother kidney disease,obesity - Asthma Son - Heart Son - Stroke Brother - Breast Cancer Maternal Aunt - other (ADPKD) Brother on dialysis - other (ESRD) Brother Social History Substance Use Topics - Smoking status: Never Smoker - Smokeless tobacco: Never Used - Alcohol use Yes Comment: rare Objective Physical Exam Constitutional: She is well-developed, well-nourished, and in no distress. HENT: Right Ear: Tympanic membrane, external ear and ear canal normal. Left Ear: Tympanic membrane, external ear and ear canal normal. Nose: Rhinorrhea present. Mouth/Throat: Uvula is midline, oropharynx is clear and moist and mucous membranes are normal. No posterior oropharyngeal edema or posterior oropharyngeal erythema. Eyes: Conjunctivae are normal. Right eye exhibits no discharge. Left eye exhibits no discharge. Neck: Neck supple. Cardiovascular: Normal rate and regular rhythm. Pulmonary/Chest: Effort normal and breath sounds normal. No respiratory distress. She has no wheezes. Lymphadenopathy: She has no cervical adenopathy. Neurological: She is alert. Skin: Skin is warm and dry. Nursing note and vitals reviewed. ASSESSMENT/PLAN: 1. Allergic rhinitis, unspecified seasonality, unspecified trigger - ICD9: 477.9, ICD10: J30.9 - CETIRIZINE 5 MG TABLET- dosage adjusted due to kidney function. - CONSULT TO ENT - Follow-up with your PCP in 3-5 days if symptoms have not improved or sooner if symptoms worsen - Discussed red flags and need for immediate medical evaluation if any occur. - Discussed supportive care treatment with fluids, rest and analgesia. - Discussed expected course of illness JAMES Wright APRN.CNP 12/22/2017 12:48 PM Signed ASSESSMENT/PLAN: 1. Allergic rhinitis, unspecified seasonality, unspecified trigger - ICD9: 477.9, ICD10: J30.9 - CETIRIZINE 5 MG TABLET- dosage adjusted due to kidney function. - CONSULT TO ENT - [facility]- for allergy testing Address: [address] [place] [address], [place] [address] - Follow-up with your PCP in 3-5 days if symptoms have not improved or sooner if symptoms worsen - Discussed red flags and need for immediate medical evaluation if any occur. - Discussed supportive care treatment with fluids, rest and analgesia. - Discussed expected course of illness Leyda Esparza APRN.TRANSIT PLANNING DIRECTOR Referring Provider: SELF [[id number]] Allergies As of Date: 12/22/2017 Noted Allergy Reaction LISINOPRIL 09/28/2011 7 - Swelling Comments: Tongue swelling. NORVASC (AMLODIPINE BESYLATE) 06/29/2016 7 - Swelling SULFA (SULFONAMIDE ANTIBIOTICS) 12/15/2004 Date Reviewed: 12/22/2017 Reviewed by: Leyda (Swimming Professor) Vilma - Fully Assessed Reason for Visit: cough, ST and runny nose [Other] Cmt: x 4-5 days Primary Visit Diagnosis:Allergic rhinitis, unspecified seasonality, unspecified trigger [J30.9] Order(s):cetirizine (ZYRTEC) 5 mg tabletTake 1 tablet by mouth once daily.Disp: 30 tabletRfl: 0 CONSULT TO ENT [[id number]] Order #: [id number]: 1 Prescriptions as of 12/22/2017 Sig: LEVOTHYROXINE 75 MCG TABLET Take 1 tablet by mouth once d* LABETALOL 200 MG TABLET Take 1 tablet by mouth twice * FLUTICASONE 50 MCG/ACTUATION * Use 2 Sprays in each nostril * FUROSEMIDE 40 MG TABLET TAKE 1 TABLET EVERY DAY ATORVASTATIN 10 MG TABLET Take 1 tablet by mouth once d* AMILORIDE 5 MG TABLET Take 1 tablet by mouth once d* IRON ORAL Take by mouth. Takes twice d* ASPIRIN 81 MG CHEWABLE TABLET Take 1 tablet by mouth once d* CHOLECALCIFEROL (VITAMIN D3) * Take 1 tablet by mouth once d* CYANOCOBALAMIN (VIT B-12) 1,0* Take 1 tablet by mouth once d* LEVONORGESTREL 20 MCG/24 HR (* INSERTED IN THE OFFICE CETIRIZINE 5 MG TABLET Take 1 tablet by mouth once d* Problem List As Of Date 12/22/2017 Noted Resolved BENIGN HYPERTENSION [I10] INVALID FOR* Hypothyroidism [E03.9] INVALID FOR* Hyperlipidemia LDL goal <100 [E78.5] INVALID FOR* Abnormal mammogram, unspecified [R92.8] INVALID FOR*02/02/2014 Alopecia [L65.9] INVALID FOR* Heart murmur [R01.1] INVALID FOR*07/05/2014 Polycystic kidney disease [Q61.3] INVALID FOR* CKD (chronic kidney disease) stage 3, GFR 30-59*INVALID FOR*07/05/2014 Hyperparathyroidism due to vitamin D deficiency*INVALID FOR* Vitamin D deficiency [E55.9] INVALID FOR* Aortic sclerosis (HCC) [IPI3548] INVALID FOR* Mitral regurgitation [I34.0] INVALID FOR* Chronic kidney disease, stage IV (severe) (HCC)*INVALID FOR* More... Colon cancer screening [Z12.11] INVALID FOR*03/08/2015 Lymphedema of both lower extremities [I89.0] INVALID FOR* Venous stasis dermatitis of both lower extremit*INVALID FOR* Complication of arteriovenous dialysis fistula *INVALID FOR* Other instructions from your clinician: ASSESSMENT/PLAN: 1. Allergic rhinitis, unspecified seasonality, unspecified trigger - ICD9: 477.9, ICD10: J30.9 - CETIRIZINE 5 MG TABLET- dosage adjusted due to kidney function. - CONSULT TO ENT - [facility]- for allergy testing Address: [address] [place] [address] - Follow-up with your PCP in 3-5 days if symptoms have not improved or sooner if symptoms worsen - Discussed red flags and need for immediate medical evaluation if any occur. - Discussed supportive care treatment with fluids, rest and analgesia. - Discussed expected course of illness Leyda Esparza APRN.TRANSIT PLANNING DIRECTOR Prescriptions ordered this encounter Disp Refills Start End CETIRIZINE 5 MG TABLET 30 t* 0 12/22/2017 Route: ORAL Sig: Take 1 tablet by mouth once daily. Encounter Status:Closed by LEYDA ESPARZA on 12/22/17 PROGRESS Observed: 12/07/2017 Status: COMPLETED Source: [place] 9:56 AM [facility] REPOSITORY O ID: [id number] Author: Serg Mccall (Sw) Service: (none) Author Type: Brazer Helper Induction Type: Progress Notes Filed: 12/24/2017 1:08 PM Note Text: Gibran met with patient to discuss medical bills, medicaid, and disability. Gibran assisted patient with providing financial counselor with monthly bill amounts and monthly income to see if she could receive any assistance from [facility] toward her bill with the clinic. Gibran also assisted patient with contacting Medicaid to see if she could qualify. Patient is currently over income for Medicaid. She currently works at [employer]. Looking at loss of hours at work. Medicaid worker states if patient loses hours at work to call in again to Medicaid to see if she qualifies. Sw and patient also called Social Security. Her current income puts her over for SS disability. If she again loses hours at work SS worker said that patient could see about qualifying for disability at that time. Sw left message for case advocate for [facility] [place] to see if patient could qualify for any of their support services. Sw will let patient know what she finds out when case advocate calls her back. Sw provided patient with [employer] directory for ideas of served meals and food pantries. CNCO Observed: 12/03/2017 Status: COMPLETED Source: [place] 11:54 AM [facility]OUS[facility]ON[facility] REPOSITORY HNO ID: [id number] Author: Mammography Coordinator Service: (none) Author Type: Physician Type: Letter Filed: 12/06/2017 11:32 PM Note Text: December 03, 2017 PID: [id number] Aric Anne [address] [place] [address] Dear Ms. Anne, We are pleased to inform you that the results of your recent breast imaging exam on 12/03/2017 are normal. Your mammogram demonstrates that you have dense breast tissue, which could hide abnormalities. Dense breast tissue, in and of itself, is a relatively common condition. Therefore, this information is not provided to cause undue concern; rather, it is to raise your awareness and promote discussion with your health care provider regarding the presence of dense breast tissue in addition to other risk factors. Early detection of cancer is very important. We also understand recommendations regarding breast cancer screening are controversial. Please discuss with your primary care provider which strategy is best for you and whether a mammogram is right for you. Your imaging studies and report will be kept on file at [facility] as part of your permanent medical record and are available for your continuing care. Thank you for allowing us to help in meeting your health care needs. Sincerely, Dr. Wilson Interpreting Radiologist [facility] (Normal over 40) EKATERINA SCREENING Observed: 12/03/2017 Status: F Source: [place] 9:04 AM [facility] MAIN HOUSATONIC REPOSITORY * * *Final Report* * * DATE OF EXAM: Dec 03 2017 9:04AM RAINA [id number] - [facility] SCREENING / PROCEDURE REASON: Encounter for screening mammogram for malignant neoplasm of breast * * * * Physician Interpretation * * * * RESULT: #[id number] - EKATERINA SCREENING BILATERAL DIGITAL SCREENING MAMMOGRAM WITH CAD: 12/03/2017 HISTORY: Encounter For Screening Mammogram For Malignant Neoplasm Of Breast /patient reports NO breast problems /priors available for comparison. RESULT: TECHNIQUE: The study was acquired using full field digital technology and interpreted from soft copy. Current study was also evaluated with a Computer Aided Detection (CAD). Comparison is made to exams dated: 10/09/2016 mammogram, 10/26/2014 mammogram - [facility], 08/30/2006 [facility], 02/11/2011 mammogram, and 06/03/2012 mammogram - [facility]. The tissue of both breasts is heterogeneously dense. This may lower the sensitivity of mammography. No significant masses, calcifications, or other findings are seen in either breast. There has been no significant interval change. IMPRESSION: NEGATIVE There is no mammographic evidence of malignancy.A 1 year screening mammogram is recommended. Francisco J alvarado/marco antonio:12/03/2017 11:54:15 Language Assistant: Rosalie CALDERON(R)(Adrian), [facility] letter sent: Normal over 40 Mammogram BI-RADS: 1 Negative Multiple national specialty organizations have released breast cancer screening guidelines for women at average risk for developing breast cancer - guidelines that are based on both evidence and opinion, yet differ on when to start and how often to screen for breast cancer. With representation from Breast Imaging, Internal Medicine, Women's Health, Family Medicine, and Medical/Surgical Oncology, the [facility] has carefully reviewed the data and reached the following consensus: 1) All women should engage in shared decision-making with their providers to decide when to start and how often to screen; 2) All women should have the opportunity to start screening mammography at age 40; 3) For women ages 45-55, we recommend annual screening mammograms; 4) For women ages 55 and over, we support both the transition from an annual to a biennial interval if this aligns more with patient's values and preferences, or continuation with annual screening; 5) All women should discuss with their providers when to stop screening mammograms. Pest Control Applicator: Marco Antonio Transcribe Date/Time: Dec 03 2017 9:04A Dictated by: FRANCISCO J WILSON MD This examination was interpreted and the report reviewed and electronically signed by: FRANCISCO J WILSON MD on Dec 03 2017 11:54AM EST [id number] Observed: 12/03/2017 Status: COMPLETED Source: [place] 12:00 AM [facility] REPOSITORY Social Work (NAVWST) ARIC ANNE ([id number]) 1965 F TRN Date Time Provider Department 12/03/17 SERG MCCALL) SAN[place] During your visit today, we recorded the following information about you: LOUISE Dumont 12/24/2017 1:08 PM Signed Gibran met with patient to discuss medical bills, medicaid, and disability. Gibran assisted patient with providing financial counselor with monthly bill amounts and monthly income to see if she could receive any assistance from [facility] toward her bill with the clinic. Gibran also assisted patient with contacting Medicaid to see if she could qualify. Patient is currently over income for Medicaid. She currently works at [employer]. Looking at loss of hours at work. Medicaid worker states if patient loses hours at work to call in again to Medicaid to see if she qualifies. Gibran and patient also called Social Security. Her current income puts her over for SS disability. If she again loses hours at work SS worker said that patient could see about qualifying for disability at that time. Gibran left message for case advocate for [facility] to see if patient could qualify for any of their support services. Gibran will let patient know what she finds out when case advocate calls her back. Gibran provided patient with [employer] directory for ideas of served meals and food pantries. LOUISE Dumont 12/24/2017 1:08 PM Signed Gibran received [facility] application for help with prescription costs in regards to kidney medication. Gibran will mail to patient for review and to complete and send back to ANTONIA Rowley [facility]. Sw spoke with patient and her hours will be changing soon and patient will come back in to see Gibran for assistance with disability. Allergies As of Date: 12/03/2017 Noted Allergy Reaction LISINOPRIL 09/28/2011 7 - Swelling Comments: Tongue swelling. NORVASC (AMLODIPINE BESYLATE) 06/29/2016 7 - Swelling SULFA (SULFONAMIDE ANTIBIOTICS) 12/15/2004 Date Reviewed: 11/19/2017 Reviewed by: Maddie Pimentel Ma - Fully Assessed Prescriptions as of 12/03/2017 Sig: LEVOTHYROXINE 75 MCG TABLET Take 1 tablet by mouth once d* LABETALOL 200 MG TABLET Take 1 tablet by mouth twice * FLUTICASONE 50 MCG/ACTUATION * Use 2 Sprays in each nostril * FUROSEMIDE 40 MG TABLET TAKE 1 TABLET EVERY DAY ATORVASTATIN 10 MG TABLET Take 1 tablet by mouth once d* AMILORIDE 5 MG TABLET Take 1 tablet by mouth once d* IRON ORAL Take by mouth. Takes twice d* ASPIRIN 81 MG CHEWABLE TABLET Take 1 tablet by mouth once d* CHOLECALCIFEROL (VITAMIN D3) * Take 1 tablet by mouth once d* CYANOCOBALAMIN (VIT B-12) 1,0* Take 1 tablet by mouth once d* LEVONORGESTREL 20 MCG/24 HR (* INSERTED IN THE OFFICE Problem List As Of Date 12/03/2017 Noted Resolved BENIGN HYPERTENSION [I10] INVALID FOR* Hypothyroidism [E03.9] INVALID FOR* Hyperlipidemia LDL goal <100 [E78.5] INVALID FOR* Abnormal mammogram, unspecified [R92.8] INVALID FOR*02/02/2014 Alopecia [L65.9] INVALID FOR* Heart murmur [R01.1] INVALID FOR*07/05/2014 Polycystic kidney disease [Q61.3] INVALID FOR* CKD (chronic kidney disease) stage 3, GFR 30-59*INVALID FOR*07/05/2014 Hyperparathyroidism due to vitamin D deficiency*INVALID FOR* Vitamin D deficiency [E55.9] INVALID FOR* Aortic sclerosis (HCC) [CJK4804] INVALID FOR* Mitral regurgitation [I34.0] INVALID FOR* Chronic kidney disease, stage IV (severe) (HCC)*INVALID FOR* More... Colon cancer screening [Z12.11] INVALID FOR*03/08/2015 Lymphedema of both lower extremities [I89.0] INVALID FOR* Venous stasis dermatitis of both lower extremit*INVALID FOR* Complication of arteriovenous dialysis fistula *INVALID FOR* Encounter Status:Closed by SERG MUNSON on 12/24/17 PROGRESS Observed: 11/19/2017 Status: COMPLETED Source: [place] 11:58 AM [facility] REPOSITORY O ID: [id number] Author: Maddie Pimentel Ma Service: (none) Author Type: (none) Type: Progress Notes Filed: 11/26/2017 5:01 PM Note Text: 52 year old female here for INACTIVATED INFLUENZA VACCINE. 1161-3353 Season Patient is identified by name and date of : Yes [] CONTRAINDICATIONS color enhanced section Age less than 6 months? No Allergy to eggs, chicken, chicken feathers, or chicken dander? No Allergy to thimerosal (a preservative) or formaldehyde? No History of severe reaction to any vaccine component or a previous dose of influenza vaccination? No History of Guillain-[place] Syndrome within 6 weeks after a previous influenza vaccine? No Current moderate or severe illness? No Current temperature greater or equal to 100.4F? No History of Bone Marrow Transplant in past 6 months or solid organ transplant in the past 3 months ? No [] VERIFICATION color enhanced section Was the answer Yes for any of the above contraindications? No contraindications present. Acceptable to proceed with vaccine. Patient/guardian agrees the above answers are true to the best of their knowledge? Yes Flu vaccine information sheet given? Yes See immunization activity in [facility] for details of immunizations adminstered today. Patient age: [age] year old For The 6537-9077 Flu Season 6-35 months old: Fluzone 0.25 ml - IM (Preservative Free) 3 years of age: Fluzone 0.5 ml - IM (Preservative Free) 3 years and older: Fluzone 0.5 ml- IM-(with Preservatives) 65+ years old: Fluzone High-Dose 0.5 ml - IM (Preservative Free) REMEMBER: If patient is less than 9 years of age and this is the first vaccine of Influenza to be received in any flu season, they should receive a second dose in one months time. PROGRESS Observed: 11/19/2017 Status: COMPLETED Source: [place] 11:13 AM [facility] MAIN [facility]OUSATONIC REPOSITORY HNO ID: [id number] Author: Samantha Gooden (Arabella) Timothy Service: (none) Author Type: Nurse Practitioner Type: Progress Notes Filed: 11/26/2017 5:01 PM Note Text: Chief Complaint Patient presents with: Discussion: patient is here for discussion/transplant/disability HPI Aric Anne is a 52 year old female who presents here today for Above Concerns. Was suggested she apply for Full Disability due to Polycystic Kidney Disease. She is not sure what to do, my health is so unpredictable, I don't know what to do. Follows with Nephrology for Polycystic Kidney Disease, CKD stage IV: Fistula harvest, no dialysis at this time. She is on the transplant wait list. Working with fitness and wellness coordinator. To get Allogen labs done every month. She follows with Dr. Meek-Pacs Administrator, next visit in January. There is currently no time frame for when she will start dialysis. She reports kidney function is now at approximately 15% or lower. Brother with kidney disease, on dialysis at this time. States her health is currently stable and understands this could change at any moment. 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 States she has been told hours will be cut starting next month. Does not feel she would be able to keep up with 2 jobs. Concerned about finances and what she should do. Depression: she sees counselor at [facility] monthly. Worries about her son, age 21, lots of anxiety, impulsiveness, immaturity and forgetfulness. Feels he has ADD and anxiety, Worries what will happen to him if something happens to her. They currently share an apt. Past medical history, appointments, medications, allergies reviewed. Previous Medical History PAST MEDICAL HISTORY Diagnosis Date - Angioedema Needed intubation - Aortic sclerosis - CKD (chronic kidney disease) stage 4, GFR 15-29 ml/min ([facility]) - Essential hypertension, benign - Heart murmur 01/23/2011 - Hyperparathyroidism due to vitamin D deficiency ([facility]) 04/27/2013 - Lymphedema - Lymphedema of both lower extremities 06/06/2015 - Mitral regurgitation - Polycystic kidney disease 05/31/2012 - Unspecified hypothyroidism - Venous stasis dermatitis of both lower extremities 06/06/2015 - Vitamin D deficiency 04/27/2013 Previous Surgical History PAST SURGICAL HISTORY Procedure Laterality Date - BALLN ANGIOPLASTY,PERC VENOUS Left 11-01-15 - BX BREAST PERC NEED W/GUID 09/27/06 U/S needle core right breast bx - DELIVERY ONLY 1995 , low cervical - COLONOSCOP W/ OR W/O BRSH SPEC 03/08/15 Colonoscopy - OPN AV ANAS FORARM RADHA TRANSP Left 07-01-15 - PAST SURGICAL HISTORY OF cyst on left hand--benign Family History FAMILY HISTORY Problem Relation Age of Onset - Hypertension Mother - Heart Mother ARTIFICIAL HEART VALVE - Breast Cancer Mother - Hypertension Father - Ischemic Heart Disease Father - other (ADPKD) Father - Hypertension Brother kidney disease,obesity - Asthma Son - Heart Son - Stroke Brother - Breast Cancer Maternal Aunt - other (ADPKD) Brother on dialysis - other (ESRD) Brother Patient Allergies ALLERGIES Allergen Reactions - Lisinopril Swelling Tongue swelling. - Norvasc [Amlodipine* Swelling - Sulfa (Sulfonamide * Current Medications Current Outpatient Prescriptions on File Prior to Visit: levothyroxine (SYNTHROID) 75 mcg tablet Take 1 tablet by mouth once daily. labetalol (TRANDATE) 200 mg tablet Take 1 tablet by mouth twice daily. fluticasone (FLONASE) 50 mcg/actuation nasal spray Use 2 Sprays in each nostril once daily. Rinse mouth after use. furosemide (LASIX) 40 mg tablet TAKE 1 TABLET EVERY DAY atorvastatin (LIPITOR) 10 mg tablet Take 1 tablet by mouth once daily. aMILoride (MIDAMOR) 5 mg tablet Take 1 tablet by mouth once daily. FERROUS SULFATE (IRON ORAL) Take by mouth. Takes twice daily. Unsure of dosage. aspirin 81 mg chewable tablet Take 1 tablet by mouth once daily. Cholecalciferol, Vitamin D3, 2,000 unit cap Take 1 tablet by mouth once daily. cyanocobalamin (VITAMIN B-12) 1,000 mcg tab Take 1 tablet by mouth once daily. levonorgestrel (MIRENA) 20 mcg/24 hour (5 years) IUD INSERTED IN THE OFFICE No current facility-administered medications on file prior to visit. 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 General Appearance: Well appearing, alert, in no acute distress, well-hydrated, well nourished. and Overweight. Scalp: diffuse thinning hair, course. Eyes: Anicteric sclera. Pupils are equally round and reactive to light. Extraocular movements are intact. . Ears: External ears normal, canals clear, Positive findings: cerumen bilaterally, amount Moderate. Oropharynx: Lips, mucosa, and tongue normal, teeth and gums normal, oropharynx normal and Positive findings: dental caries. Neck: Supple, no adenopathy; thyroid symmetric, normal size, no bruits. Lungs: Lungs clear to auscultation. No wheezing, rhonchi, rales. Heart: RRR without gallop, or rubs. No ectopy. Positive: 2/6 DERRICK Abdomen: Normal abdominal exam, Abdomen soft, non-tender. Bowel sounds normal. No masses, organomegaly. Extremities: RLE: lymphedema, R>L. Neurologic: Gait normal. . Sensation grossly intact., Negative findings: speech normal, mental status intact, cranial nerves 2-12 intact, thoughts jump from topic to topic. Health Maintenance List TWO PNEUMOVAX 5 YEARS APART PRIOR TO AGE 65(1) due on 02/07/1983 MAMMOGRAM due on 10/09/2017 INFLUENZA(1) due on 11/20/2017 ANNUAL PCP TEAM CHRONIC DISEASE VISIT due on 07/16/2018 BLOOD PRESSURE CONTROLLED due on 07/16/2018 SERUM CREATININE due on 10/06/2018 HEMOGLOBIN/HEMATOCRIT due on 10/15/2018 DIABETES SCREEN due on 05/14/2020 PAP EVERY 5 YEARS due on 08/29/2020 HPV EVERY 5 YEARS due on 08/29/2020 LIPID SCREEN due on 02/19/2022 COLORECTAL CANCER SCREENING,SEE MODIFIER due on 03/08/2025 DTAP,TDAP,TD(9 - Td) due on 03/12/2027 ADULT PREVNAR-13 Completed HEPATITIS C SCREENING Completed ASSESSMENT/PLAN: 1. Chronic kidney disease, stage IV (severe) (HCC) - ICD9: 585.4, ICD10: N18.4 (primary diagnosis) - Will likely require dialysis. I have discussed with her the potential time constraint and physically taxing dialysis is, therefore have recommended she start the process of filing for disability. 2. Polycystic kidney disease - ICD9: 753.12, ICD10: Q61.3 - As above, following with Nephrology 3. Bilateral impacted cerumen - ICD9: 380.4, ICD10: H61.23 -Declines lavage today due to son's apt 4. Need for vaccination - ICD9: V05.9, ICD10: Z23 - INFLUENZA VACCINE QUADRIVALENT AGE 3 YRS PLUS + IM 5. Visit for screening mammogram - ICD9: V76.12, ICD10: Z12.31 - Set up for mammogram, yearly mammogram recommended - Follow up for annual exam in one year. - EKATERINA SCREENING 6. Situational stress - ICD9: V62.89, ICD10: F43.9 -To continue counseling, Will also have her see SW to discuss financial options if and when work hours get cut, eg food stamps etc. - PRIMARY CARE SOCIAL WORK CONSULT During this patient visit I have spent approximately 40 minutes in counseling and/or education regarding SSI and coordinating care. Samantha Aguirre, MSN MATERIAL SCHEDULER.TRANSIT PLANNING DIRECTOR CNOV Observed: 11/19/2017 Status: COMPLETED Source: [place] 11:00 AM [facility] REPOSITORY [facility] ARIC ANNE ([id number]) 1965 F TRN Date Time Provider Department 11/19/17 11:00 AM SAMANTHA AGUIRRE (WEB PORTAL DEVELOPER) [place] During your visit today, we recorded the following information about you: Pulse Respiration Blood pressure Weight 60/minute 14/minute 110/80 75.8 kg Samantha Aguirre, MSN MATERIAL SCHEDULER.TRANSIT PLANNING DIRECTOR 11/26/2017 5:01 PM Signed Chief Complaint Patient presents with: Discussion: patient is here for discussion/transplant/disability HPI Aric Anne is a 52 year old female who presents here today for Above Concerns. Was suggested she apply for Full Disability due to Polycystic Kidney Disease. She is not sure what to do, my health is so unpredictable, I don't know what to do. Follows with Nephrology for Polycystic Kidney Disease, CKD stage IV: Fistula harvest, no dialysis at this time. She is on the transplant wait list. Working with fitness and wellness coordinator. To get Allogen labs done every month. She follows with Dr. Meek-Pacs Administrator, next visit in January. There is currently no time frame for when she will start dialysis. She reports kidney function is now at approximately 15% or lower. Brother with kidney disease, on dialysis at this time. States her health is currently stable and understands this could change at any moment. 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 States she has been told hours will be cut starting next month. Does not feel she would be able to keep up with 2 jobs. Concerned about finances and what she should do. Depression: she sees counselor at [facility] monthly. Worries about her son, age 21, lots of anxiety, impulsiveness, immaturity and forgetfulness. Feels he has ADD and anxiety, Worries what will happen to him if something happens to her. They currently share an apt. Past medical history, appointments, medications, allergies reviewed. Previous Medical History PAST MEDICAL HISTORY Diagnosis Date - Angioedema Needed intubation - Aortic sclerosis - CKD (chronic kidney disease) stage 4, GFR 15-29 ml/min ([facility]) - Essential hypertension, benign - Heart murmur 01/23/2011 - Hyperparathyroidism due to vitamin D deficiency ([facility]) 04/27/2013 - Lymphedema - Lymphedema of both lower extremities 06/06/2015 - Mitral regurgitation - Polycystic kidney disease 05/31/2012 - Unspecified hypothyroidism - Venous stasis dermatitis of both lower extremities 06/06/2015 - Vitamin D deficiency 04/27/2013 Previous Surgical History PAST SURGICAL HISTORY Procedure Laterality Date - BALLN ANGIOPLASTY,PERC VENOUS Left 11-01-15 - BX BREAST PERC NEED W/GUID 09/27/06 U/S needle core right breast bx - DELIVERY ONLY 1995 , low cervical - COLONOSCOP W/ OR W/O BRSH SPEC 03/08/15 Colonoscopy - OPN AV ANAS FORARM RADHA TRANSP Left 07-01-15 - PAST SURGICAL HISTORY OF cyst on left hand--benign Family History FAMILY HISTORY Problem Relation Age of Onset - Hypertension Mother - Heart Mother ARTIFICIAL HEART VALVE - Breast Cancer Mother - Hypertension Father - Ischemic Heart Disease Father - other (ADPKD) Father - Hypertension Brother kidney disease,obesity - Asthma Son - Heart Son - Stroke Brother - Breast Cancer Maternal Aunt - other (ADPKD) Brother on dialysis - other (ESRD) Brother Patient Allergies ALLERGIES Allergen Reactions - Lisinopril Swelling Tongue swelling. - Norvasc [Amlodipine* Swelling - Sulfa (Sulfonamide * Current Medications Current Outpatient Prescriptions on File Prior to Visit: levothyroxine (SYNTHROID) 75 mcg tablet Take 1 tablet by mouth once daily. labetalol (TRANDATE) 200 mg tablet Take 1 tablet by mouth twice daily. fluticasone (FLONASE) 50 mcg/actuation nasal spray Use 2 Sprays in each nostril once daily. Rinse mouth after use. furosemide (LASIX) 40 mg tablet TAKE 1 TABLET EVERY DAY atorvastatin (LIPITOR) 10 mg tablet Take 1 tablet by mouth once daily. aMILoride (MIDAMOR) 5 mg tablet Take 1 tablet by mouth once daily. FERROUS SULFATE (IRON ORAL) Take by mouth. Takes twice daily. Unsure of dosage. aspirin 81 mg chewable tablet Take 1 tablet by mouth once daily. Cholecalciferol, Vitamin D3, 2,000 unit cap Take 1 tablet by mouth once daily. cyanocobalamin (VITAMIN B-12) 1,000 mcg tab Take 1 tablet by mouth once daily. levonorgestrel (MIRENA) 20 mcg/24 hour (5 years) IUD INSERTED IN THE OFFICE No current facility-administered medications on file prior to visit. 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 General Appearance: Well appearing, alert, in no acute distress, well-hydrated, well nourished. and Overweight. Scalp: diffuse thinning hair, course. Eyes: Anicteric sclera. Pupils are equally round and reactive to light. Extraocular movements are intact. . Ears: External ears normal, canals clear, Positive findings: cerumen bilaterally, amount Moderate. Oropharynx: Lips, mucosa, and tongue normal, teeth and gums normal, oropharynx normal and Positive findings: dental caries. Neck: Supple, no adenopathy; thyroid symmetric, normal size, no bruits. Lungs: Lungs clear to auscultation. No wheezing, rhonchi, rales. Heart: RRR without gallop, or rubs. No ectopy. Positive: 2/6 DERRICK Abdomen: Normal abdominal exam, Abdomen soft, non-tender. Bowel sounds normal. No masses, organomegaly. Extremities: RLE: lymphedema, R>L. Neurologic: Gait normal. . Sensation grossly intact., Negative findings: speech normal, mental status intact, cranial nerves 2-12 intact, thoughts jump from topic to topic. Health Maintenance List TWO PNEUMOVAX 5 YEARS APART PRIOR TO AGE 65(1) due on 02/07/1983 MAMMOGRAM due on 10/09/2017 INFLUENZA(1) due on 11/20/2017 ANNUAL PCP TEAM CHRONIC DISEASE VISIT due on 07/16/2018 BLOOD PRESSURE CONTROLLED due on 07/16/2018 SERUM CREATININE due on 10/06/2018 HEMOGLOBIN/HEMATOCRIT due on 10/15/2018 DIABETES SCREEN due on 05/14/2020 PAP EVERY 5 YEARS due on 08/29/2020 HPV EVERY 5 YEARS due on 08/29/2020 LIPID SCREEN due on 02/19/2022 COLORECTAL CANCER SCREENING,SEE MODIFIER due on 03/08/2025 DTAP,TDAP,TD(9 - Td) due on 03/12/2027 ADULT PREVNAR-13 Completed HEPATITIS C SCREENING Completed ASSESSMENT/PLAN: 1. Chronic kidney disease, stage IV (severe) (HCC) - ICD9: 585.4, ICD10: N18.4 (primary diagnosis) - Will likely require dialysis. I have discussed with her the potential time constraint and physically taxing dialysis is, therefore have recommended she start the process of filing for disability. 2. Polycystic kidney disease - ICD9: 753.12, ICD10: Q61.3 - As above, following with Nephrology 3. Bilateral impacted cerumen - ICD9: 380.4, ICD10: H61.23 -Declines lavage today due to son's apt 4. Need for vaccination - ICD9: V05.9, ICD10: Z23 - INFLUENZA VACCINE QUADRIVALENT AGE 3 YRS PLUS + IM 5. Visit for screening mammogram - ICD9: V76.12, ICD10: Z12.31 - Set up for mammogram, yearly mammogram recommended - Follow up for annual exam in one year. - EKATERINA SCREENING 6. Situational stress - ICD9: V62.89, ICD10: F43.9 -To continue counseling, Will also have her see SW to discuss financial options if and when work hours get cut, eg food stamps etc. - PRIMARY CARE SOCIAL WORK CONSULT During this patient visit I have spent approximately 40 minutes in counseling and/or education regarding SSI and coordinating care. Samantha Aguirre, MSN MATERIAL SCHEDULER.MARTINE Pimentel Ma 11/26/2017 5:01 PM Signed 52 year old female here for INACTIVATED INFLUENZA VACCINE. [id number] Season Patient is identified by name and date of : Yes [] CONTRAINDICATIONS color enhanced section Age less than 6 months? No Allergy to eggs, chicken, chicken feathers, or chicken dander? No Allergy to thimerosal (a preservative) or formaldehyde? No History of severe reaction to any vaccine component or a previous dose of influenza vaccination? No History of Guillain-Salem Syndrome within 6 weeks after a previous influenza vaccine? No Current moderate or severe illness? No Current temperature greater or equal to 100.4F? No History of Bone Marrow Transplant in past 6 months or solid organ transplant in the past 3 months ? No [] VERIFICATION color enhanced section Was the answer Yes for any of the above contraindications? No contraindications present. Acceptable to proceed with vaccine. Patient/guardian agrees the above answers are true to the best of their knowledge? Yes Flu vaccine information sheet given? Yes See immunization activity in [facility] for details of immunizations adminstered today. Patient age: [age] year old For The 0631-5050 Flu Season 6-35 months old: Fluzone 0.25 ml - IM (Preservative Free) 3 years of age: Fluzone 0.5 ml - IM (Preservative Free) 3 years and older: Fluzone 0.5 ml- IM-(with Preservatives) 65+ years old: Fluzone High-Dose 0.5 ml - IM (Preservative Free) REMEMBER: If patient is less than 9 years of age and this is the first vaccine of Influenza to be received in any flu season, they should receive a second dose in one months time. Referring Provider: SELF [200] Allergies As of Date: 11/19/2017 Noted Allergy Reaction LISINOPRIL 09/28/2011 7 - Swelling Comments: Tongue swelling. NORVASC (AMLODIPINE BESYLATE) 06/29/2016 7 - Swelling SULFA (SULFONAMIDE ANTIBIOTICS) 12/15/2004 Date Reviewed: 11/19/2017 Reviewed by: Maddie Pimentel Ma - Fully Assessed Reason for Visit: Discussion [813] Cmt: patient is here for discussion/transplant/disability Imm/Inj [58] Cmt: Flu Vaccine Reason For Visit History Recorded Primary Visit Diagnosis:Chronic kidney disease, stage IV (severe) (HCC) [N18.4] Other Visit Diagnoses:Polycystic kidney disease [Q61.3] Bilateral impacted cerumen [H61.23] Need for vaccination [Z23] Visit for screening mammogram [Z12.31] Situational stress [F43.9] Order(s):INFLUENZA VACCINE QUADRIVALENT AGE 3 YRS PLUS + IM [[id number]] Order #: [id number] EKATERINA SCREENING [[id number]] Order #: [id number] [facility] PRIMARY CARE SOCIAL WORK CONSULT [[id number]] Order #: [id number]: 1 Prescriptions as of 11/19/2017 Sig: LEVOTHYROXINE 75 MCG TABLET Take 1 tablet by mouth once d* LABETALOL 200 MG TABLET Take 1 tablet by mouth twice * FLUTICASONE 50 MCG/ACTUATION * Use 2 Sprays in each nostril * FUROSEMIDE 40 MG TABLET TAKE 1 TABLET EVERY DAY ATORVASTATIN 10 MG TABLET Take 1 tablet by mouth once d* AMILORIDE 5 MG TABLET Take 1 tablet by mouth once d* IRON ORAL Take by mouth. Takes twice d* ASPIRIN 81 MG CHEWABLE TABLET Take 1 tablet by mouth once d* CHOLECALCIFEROL (VITAMIN D3) * Take 1 tablet by mouth once d* CYANOCOBALAMIN (VIT B-12) 1,0* Take 1 tablet by mouth once d* LEVONORGESTREL 20 MCG/24 HR (* INSERTED IN THE OFFICE Problem List As Of Date 11/19/2017 Noted Resolved BENIGN HYPERTENSION [I10] INVALID FOR* Hypothyroidism [E03.9] INVALID FOR* Hyperlipidemia LDL goal <100 [E78.5] INVALID FOR* Abnormal mammogram, unspecified [R92.8] INVALID FOR*02/02/2014 Alopecia [L65.9] INVALID FOR* Heart murmur [R01.1] INVALID FOR*07/05/2014 Polycystic kidney disease [Q61.3] INVALID FOR* CKD (chronic kidney disease) stage 3, GFR 30-59*INVALID FOR*07/05/2014 Hyperparathyroidism due to vitamin D deficiency*INVALID FOR* Vitamin D deficiency [E55.9] INVALID FOR* Aortic sclerosis (HCC) [[id number]] INVALID FOR* Mitral regurgitation [I34.0] INVALID FOR* Chronic kidney disease, stage IV (severe) (HCC)*INVALID FOR* More... Colon cancer screening [Z12.11] INVALID FOR*03/08/2015 Lymphedema of both lower extremities [I89.0] INVALID FOR* Venous stasis dermatitis of both lower extremit*INVALID FOR* Complication of arteriovenous dialysis fistula *INVALID FOR* Encounter Status:Closed by SAMANTHA AGUIRRE CNP on 11/26/17 CBC W/DIFF, AUTOMATED Collected: 10/15/2017 Status: F Source: [place] 8:33 AM [facility] REPOSITORY TYPE CODE TESTS RESULT OUT OF RANGE REFERENCE UNITS LAB L100.1000 4.4-11.0 K/mm3 Low WBC 3.1 LAB L100.1200 4.2-5.4 M/mm3 Low RBC 2.84 LAB L100.1300 12.0-15.0 g/dl Low HGB 8.7 LAB L100.1400 37-47 % Low HCT 27.0 LAB L100.1500 81-99 fL Normal MCV 95.1 LAB L100.1600 27.0-32.0 pg Normal MCH 30.6 LAB L100.1700 32-36 g/gl Normal MCHC 32.2 LAB L100.1810 11.6-14.6 % Normal RDW CV 12.4 LAB L100.1820 35.1-43.9 fl Normal RDW SD 43.2 LAB L100.1900 150-450 K/mm3 Low PLT 109 LAB L100.2000 6.2-12.0 fl Normal MPV 10.2 LAB L100.2100 47-70 % Normal NEUT% 59.0 LAB L100.2200 19-41 % Normal LY% 32.4 LAB L100.2300 0-10 % Normal MONO% 6.1 LAB L100.2400 0-5 % Normal EO% 2.2 LAB L100.2500 0-1 % Normal BASO% 0.3 LAB L100.2550 0.0-0.9 % Normal IM GRAN % 0.000 Result Comment: IG% - Immature Granulocytes (promyelocytes, myelocytes and metamyelocytes) > 1% indicates that a LEFT SHIFT is Present. LAB L100.2620 2.0-7.7 X10 3/uL Low Absolute Neut 1.8 LAB L100.2720 0.83-4.51 X10 3/ul Normal Absolute Lymph 1.01 Performed By: #### L100.0100 #### [facility] [place], [address] CBC W/DIFF, AUTOMATED Collected: 09/03/2017 Status: F Source: [place] 8:35 AM [facility] REPOSITORY TYPE CODE TESTS RESULT OUT OF RANGE REFERENCE UNITS LAB L100.1000 4.4-11.0 K/mm3 Low WBC 3.7 LAB L100.1200 4.2-5.4 M/mm3 Low RBC 2.88 LAB L100.1300 12.0-15.0 g/dl Low HGB 9.0 LAB L100.1400 37-47 % Low HCT 28.1 LAB L100.1500 81-99 fL Normal MCV 97.6 LAB L100.1600 27.0-32.0 pg Normal MCH 31.3 LAB L100.1700 32-36 g/gl Normal MCHC 32.0 LAB L100.1810 11.6-14.6 % Normal RDW CV 11.9 LAB L100.1820 35.1-43.9 fl Normal RDW SD 41.1 LAB L100.1900 150-450 K/mm3 Normal PLT 167 LAB L100.2000 6.2-12.0 fl Normal MPV 10.5 LAB L100.2100 47-70 % Normal NEUT% 63.9 LAB L100.2200 19-41 % Normal LY% 25.3 LAB L100.2300 0-10 % Normal MONO% 8.4 LAB L100.2400 0-5 % Normal EO% 1.6 LAB L100.2500 0-1 % Normal BASO% 0.5 LAB L100.2550 0.0-0.9 % Normal IM GRAN % 0.300 Result Comment: IG% - Immature Granulocytes (promyelocytes, myelocytes and metamyelocytes) > 1% indicates that a LEFT SHIFT is Present. LAB L100.2620 2.0-7.7 X10 3/uL Normal Absolute Neut 2.4 LAB L100.2720 0.83-4.51 X10 3/ul Normal Absolute Lymph 0.94 Performed By: #### L100.0100 #### [facility] 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 LISTED in 2016 Unilateral Nx being recommended at time of txp. Prior TOF MRI neg. Treadmill TTE non-diagnostic 77%MPHR/10 mets w/o ischemia, normal LVEF, + LAE/LVE, mild pulm htn. Lexiscan negative ischemia. Chronic lymphedema that pre-dated ckd.. . Getting manual wraps via vascular PT. 07/21/2017 Left message for patient she has not sent in or had her monthly sera for kidney transplant sent in for over a year. Pt called back apparently had concerns about insurance I instructed patient will have social work case manager call to discuss. We also discussed that she is still a couple of years out from transplant for a cadaveric kidney unless she would happen to get a perfect match offer or be considered sooner since she is not on dialysis yet. She did make contact with sw and called back and left message that she could afford her transplant. I attempted to call patient back yesterday to inform her to have her sera drawn no answer message left. Colette Rincon RN CBC W/DIFF, AUTOMATED Collected: 08/06/2017 Status: F Source: [place] 8:33 AM [facility] REPOSITORY TYPE CODE TESTS RESULT OUT OF RANGE REFERENCE UNITS LAB L100.1000 4.4-11.0 K/mm3 Low WBC 3.1 LAB L100.1200 4.2-5.4 M/mm3 Low RBC 2.70 LAB L100.1300 12.0-15.0 g/dl Low HGB 8.5 LAB L100.1400 37-47 % Low HCT 26.4 LAB L100.1500 81-99 fL Normal MCV 97.8 LAB L100.1600 27.0-32.0 pg Normal MCH 31.5 LAB L100.1700 32-36 g/gl Normal MCHC 32.2 LAB L100.1810 11.6-14.6 % Normal RDW CV 12.0 LAB L100.1820 35.1-43.9 fl Normal RDW SD 41.4 LAB L100.1900 150-450 K/mm3 Low PLT 146 LAB L100.2000 6.2-12.0 fl Normal MPV 9.9 LAB L100.2100 47-70 % Normal NEUT% 55.5 LAB L100.2200 19-41 % Normal LY% 32.2 LAB L100.2300 0-10 % Normal MONO% 9.2 LAB L100.2400 0-5 % Normal EO% 2.5 LAB L100.2500 0-1 % Normal BASO% 0.6 LAB L100.2550 0.0-0.9 % Normal IM GRAN % 0.000 Result Comment: IG% - Immature Granulocytes (promyelocytes, myelocytes and metamyelocytes) > 1% indicates that a LEFT SHIFT is Present. LAB L100.2620 2.0-7.7 X10 3/uL Low Absolute Neut 1.7 LAB L100.2720 0.83-4.51 X10 3/ul Normal Absolute Lymph 1.01 Performed By: #### L100.0100 #### [facility] [address] [place], [place], [address] IRON+IRON BINDING Collected: 08/06/2017 Status: F Source: [facility] 8:33 AM [facility] REPOSITORY TYPE CODE TESTS RESULT OUT OF RANGE REFERENCE UNITS LAB L503.6075 250-450 ug/dL TIBC Normal 265 LAB L503.6150 50-170 ug/dL IRON Normal 77 LAB L503.6250 15.0-55.0 % IRON Normal SATURATION 29.1 Performed By: #### L503.6030, L503.6550 #### [facility] [address] [place], [place], [address] FERRITIN Collected: 08/06/2017 Status: F Source: [place] 8:33 AM [facility] REPOSITORY TYPE CODE TESTS RESULT OUT OF RANGE REFERENCE UNITS LAB L503.6550 8-252 ng/mL Normal FERRITIN 79 Performed By: #### L503.6030, L503.6550 #### [facility] [address] [place], [place], [address] PROGRESS Observed: 08/02/2017 Status: COMPLETED Source: [place] 2:28 PM [facility] REPOSITORY HNO ID: [id number] Author: Estela Corea (Gibran), TILE EDGER Service: (none) Author Type: Brazer Helper Induction Type: Progress Notes Filed: 08/02/2017 2:30 PM Note Text: Attempted to f/u with pt regarding insurance issues as requested by her coordinator. Unable to get through. The phone rang initially, but then there was a busy signal. Will try again later. UGO Mina, [facility] Transplant Brazer Helper Induction CNSW Observed: 08/02/2017 Status: COMPLETED Source: [place] 12:00 AM [facility] REPOSITORY Social Work (TXCTGL) ARIC ANNE ([id number]) 1965 F TRN Date Time Provider Department 08/02/17 ESTELA COREA) [facility] During your visit today, we recorded the following information about you: Estela Corea (Sw), TILE EDGER 08/02/2017 2:30 PM Signed Attempted to f/u with pt regarding insurance issues as requested by her coordinator. Unable to get through. The phone rang initially, but then there was a busy signal. Will try again later. UGO Mina, [facility] Transplant Brazer Helper Induction Allergies As of Date: 08/02/2017 Noted Allergy Reaction LISINOPRIL 09/28/2011 7 - Swelling Comments: Tongue swelling. NORVASC (AMLODIPINE BESYLATE) 06/29/2016 7 - Swelling SULFA (SULFONAMIDE ANTIBIOTICS) 12/15/2004 Date Reviewed: 07/16/2017 Reviewed by: Sushila Kan ([facility])IVELISSE - Fully Assessed Prescriptions as of 08/02/2017 Sig: FLUTICASONE 50 MCG/ACTUATION * Use 2 Sprays in each nostril * FUROSEMIDE 40 MG TABLET TAKE 1 TABLET EVERY DAY ATORVASTATIN 10 MG TABLET Take 1 tablet by mouth once d* LEVOTHYROXINE 75 MCG TABLET Take 1 tablet by mouth once d* LABETALOL 200 MG TABLET Take 1 tablet by mouth twice * AMILORIDE 5 MG TABLET Take 1 tablet by mouth once d* IRON ORAL Take by mouth. Takes twice d* ASPIRIN 81 MG CHEWABLE TABLET Take 1 tablet by mouth once d* CHOLECALCIFEROL (VITAMIN D3) * Take 1 tablet by mouth once d* CYANOCOBALAMIN (VIT B-12) 1,0* Take 1 tablet by mouth once d* LEVONORGESTREL 20 MCG/24 HR (* INSERTED IN THE OFFICE Problem List As Of Date 08/02/2017 Noted Resolved BENIGN HYPERTENSION [I10] INVALID FOR* Hypothyroidism [E03.9] INVALID FOR* Hyperlipidemia LDL goal <100 [E78.5] INVALID FOR* Abnormal mammogram, unspecified [R92.8] INVALID FOR*02/02/2014 Alopecia [L65.9] INVALID FOR* Heart murmur [R01.1] INVALID FOR*07/05/2014 Polycystic kidney disease [Q61.3] INVALID FOR* CKD (chronic kidney disease) stage 3, GFR 30-59*INVALID FOR*07/05/2014 Hyperparathyroidism due to vitamin D deficiency*INVALID FOR* Vitamin D deficiency [E55.9] INVALID FOR* Aortic sclerosis (HCC) [SOB1440] INVALID FOR* Mitral regurgitation [I34.0] INVALID FOR* Chronic kidney disease, stage IV (severe) (HCC)*INVALID FOR* More... Colon cancer screening [Z12.11] INVALID FOR*03/08/2015 Lymphedema of both lower extremities [I89.0] INVALID FOR* Venous stasis dermatitis of both lower extremit*INVALID FOR* Complication of arteriovenous dialysis fistula *INVALID FOR* Encounter Status:Closed by ESTELA COREA on 08/02/17 PROGRESS Observed: 07/16/2017 Status: COMPLETED Source: [place] 7:46 AM [facility] REPOSITORY O ID: [id number] Author: Samantha Gooden (Shira Aguirre Service: (none) Author Type: Nurse Practitioner Type: Progress Notes Filed: 07/16/2017 8:09 AM Note Text: Patient presents with: Sinus symptoms: x2 weeks, coughing a lot, hoarse HPI Aric Anne is a 52 year old female who presents with complaint of respiratory symptoms, cough, nonproductive and sinus symptoms for 2 weeks. Associated symptoms includes nasal congestion, cough, dry, facial pain/pressure, hoarse voice and post nasal drip. Patient denies fever, dyspnea, wheezing and trouble swallowing. Symptoms started with sore throat and cough. Treatments tried include Flonase and Tessalon Pearls with no relief of symptoms. 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 States initially had GI flu with N/V, then few days later developed URI sx. Seen in UC note reviewed. Reports not getting better. Missing work due to illness. I never miss work. The ROS is otherwise negative. The patient's pmh, medications, allergies, and past visits are reviewed. PHYSICAL EXAM: Blood pressure 117/67, pulse 64, resp. rate 16, weight 78.5 kg (173 lb). General appearance: tired/ill appearing, alert, cooperative, pleasant, in no acute distress, nontoxic Head: Normocephalic Eyes: conjunctiva/corneas normal, PERRL Ears: R TM - visualization obscured by wax , L TM - clear with good landmarks Nose: mucosa erythematous and swollen Oropharynx: moist without lesions Neck: supple and no adenopathy Heart: regular rate and rhythm, DERRICK, grade 2/6. Lungs: clear to auscultation, without rales or wheeze, good air exchange Chest Wall: Symmetrical chest wall expansion, no retractions, chest wall nontender ASSESSMENT/PLAN: 1. Bronchitis - ICD9: 490, ICD10: J40 - Will treat with Doxy at this time, she may also use OTC Loratadine 10 mg with dosing every 48 hours. Prescription instructions reviewed with patient as applicable. Patient advised if symptoms do not improve or if symptoms worsen sooner, to contact their primary care physician. Potential red flag symptoms discussed with the patient. Reviewed appropriate action plan to take if red flag symptoms occur. Patient agreeable to treatment plan. -Follow up if sx worse or fail to improve. - DOXYCYCLINE MONOHYDRATE 100 MG CAPSULE Samantha Aguirre, MSN MATERIAL SCHEDULER.TRANSIT PLANNING DIRECTOR CNOV Observed: 07/16/2017 Status: COMPLETED Source: [place] 7:40 AM [facility] REPOSITORY Office Visit (FAMPWS) ARIC ANNE ([id number]) 1965 F TRN Date Time Provider Department 07/16/17 7:40 AM SAMANTHA AGUIRRE (WEB PORTAL DEVELOPER) [place] During your visit today, we recorded the following information about you: Temperature Pulse Respiration Blood pressure 98.9 degrees 64/minute 16/minute 117/67 Weight 78.5 kg Samantha Aguirre, MSN MATERIAL SCHEDULER.TRANSIT PLANNING DIRECTOR 07/16/2017 8:09 AM Signed Patient presents with: Sinus symptoms: x2 weeks, coughing a lot, hoarse HPI Aric Anne is a 52 year old female who presents with complaint of respiratory symptoms, cough, nonproductive and sinus symptoms for 2 weeks. Associated symptoms includes nasal congestion, cough, dry, facial pain/pressure, hoarse voice and post nasal drip. Patient denies fever, dyspnea, wheezing and trouble swallowing. Symptoms started with sore throat and cough. Treatments tried include Flonase and Tessalon Pearls with no relief of symptoms. 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 States initially had GI flu with N/V, then few days later developed URI sx. Seen in note reviewed. Reports ANDquot;not getting betterANDquot;. Missing work due to illness. ANDquot;I never miss workANDquot;. The ROS is otherwise negative. The patient's pmh, medications, allergies, and past visits are reviewed. PHYSICAL EXAM: Blood pressure 117/67, pulse 64, resp. rate 16, weight 78.5 kg (173 lb). General appearance: tired/ill appearing, alert, cooperative, pleasant, in no acute distress, nontoxic Head: Normocephalic Eyes: conjunctiva/corneas normal, PERRL Ears: R TM - visualization obscured by wax , L TM - clear with good landmarks Nose: mucosa erythematous and swollen Oropharynx: moist without lesions Neck: supple and no adenopathy Heart: regular rate and rhythm, DERRICK, grade 2/6. Lungs: clear to auscultation, without rales or wheeze, good air exchange Chest Wall: Symmetrical chest wall expansion, no retractions, chest wall nontender ASSESSMENT/PLAN: 1. Bronchitis - ICD9: 490, ICD10: J40 - Will treat with Doxy at this time, she may also use OTC Loratadine 10 mg with dosing every 48 hours. Prescription instructions reviewed with patient as applicable. Patient advised if symptoms do not improve or if symptoms worsen sooner, to contact their primary care physician. Potential red flag symptoms discussed with the patient. Reviewed appropriate action plan to take if red flag symptoms occur. Patient agreeable to treatment plan. -Follow up if sx worse or fail to improve. - DOXYCYCLINE MONOHYDRATE 100 MG CAPSULE Samantha Aguirre, MSN MATERIAL SCHEDULER.TRANSIT PLANNING DIRECTOR Smaantha Aguirre, MSN MATERIAL SCHEDULER.MARTINE 07/16/2017 8:01 AM Signed 1. OK to take Loratadine 10 mg for sinus/allergy symptoms. Take one tablet every other day, (every 48 hours) only as needed. Referring Provider: SELF [200] Allergies As of Date: 07/16/2017 Noted Allergy Reaction LISINOPRIL 09/28/2011 7 - Swelling Comments: Tongue swelling. NORVASC (AMLODIPINE BESYLATE) 06/29/2016 7 - Swelling SULFA (SULFONAMIDE ANTIBIOTICS) 12/15/2004 Date Reviewed: 07/16/2017 Reviewed by: Sushila ([facility]) IVELISSE Kan - Fully Assessed Reason for Visit: Sinus symptoms [Other] Cmt: x2 weeks, coughing a lot, hoarse Primary Visit Diagnosis:Bronchitis [J40] Order(s):doxycycline monohydrate (MONODOX) 100 mg capsuleTake 1 capsule by mouth twice daily for 10 days.Disp: 20 capsuleRfl: 0 Prescriptions as of 07/16/2017 Sig: FLUTICASONE 50 MCG/ACTUATION * Use 2 Sprays in each nostril * FUROSEMIDE 40 MG TABLET TAKE 1 TABLET EVERY DAY ATORVASTATIN 10 MG TABLET Take 1 tablet by mouth once d* LEVOTHYROXINE 75 MCG TABLET Take 1 tablet by mouth once d* LABETALOL 200 MG TABLET Take 1 tablet by mouth twice * AMILORIDE 5 MG TABLET Take 1 tablet by mouth once d* IRON ORAL Take by mouth. Takes twice d* ASPIRIN 81 MG CHEWABLE TABLET Take 1 tablet by mouth once d* CHOLECALCIFEROL (VITAMIN D3) * Take 1 tablet by mouth once d* CYANOCOBALAMIN (VIT B-12) 1,0* Take 1 tablet by mouth once d* LEVONORGESTREL 20 MCG/24 HR (* INSERTED IN THE OFFICE DOXYCYCLINE MONOHYDRATE 100 M* Take 1 capsule by mouth twice* Problem List As Of Date 07/16/2017 Noted Resolved BENIGN HYPERTENSION [I10] INVALID FOR* Hypothyroidism [E03.9] INVALID FOR* Hyperlipidemia LDL goal <100 [E78.5] INVALID FOR* Abnormal mammogram, unspecified [R92.8] INVALID FOR*02/02/2014 Alopecia [L65.9] INVALID FOR* Heart murmur [R01.1] INVALID FOR*07/05/2014 Polycystic kidney disease [Q61.3] INVALID FOR* CKD (chronic kidney disease) stage 3, GFR 30-59*INVALID FOR*07/05/2014 Hyperparathyroidism due to vitamin D deficiency*INVALID FOR* Vitamin D deficiency [E55.9] INVALID FOR* Aortic sclerosis (HCC) [[id number]] INVALID FOR* Mitral regurgitation [I34.0] INVALID FOR* Chronic kidney disease, stage IV (severe) (HCC)*INVALID FOR* More... Colon cancer screening [Z12.11] INVALID FOR*03/08/2015 Lymphedema of both lower extremities [I89.0] INVALID FOR* Venous stasis dermatitis of both lower extremit*INVALID FOR* Complication of arteriovenous dialysis fistula *INVALID FOR* Other instructions from your clinician: 1. OK to take Loratadine 10 mg for sinus/allergy symptoms. Take one tablet every other day, (every 48 hours) only as needed. Prescriptions ordered this encounter Disp Refills Start End DOXYCYCLINE MONOHYDRATE 100 MG CAPSU* 20 c* 0 07/16/2017 07/26/2017 Route: ORAL Sig: Take 1 capsule by mouth twice daily for 10 days. Disposition: Return if symptoms worsen or fail to improve. Follow-up and Disposition History Recorded Encounter Status:Closed by SAMANTHA AGUIRRE CNP on 07/16/17 HH, HEMOGLOBIN AND Collected: 07/09/2017 Status: F Source: [place] 9:00 AM [facility] REPOSITORY TYPE CODE TESTS RESULT OUT OF RANGE REFERENCE UNITS LAB L100.1300 12.0-15.0 g/dl Low HGB 8.5 LAB L100.1400 37-47 % Low HCT 26.9 Performed By: #### L100.0600 #### [facility] [address] [place], [address] PROGRESS Observed: 06/28/2017 Status: COMPLETED Source: [place] 7:13 AM [facility] REPOSITORY HNO ID: [id number] Author: Leyda (Martine) Vilma Service: (none) Author Type: Nurse Practitioner Type: Progress Notes Filed: 06/28/2017 7:52 AM Note Text: Subjective HPI Aric Anne is a 52 year old female who presents with cough for the past 5 days. She has taken coricidin at home without relief. Her son has had a cough recently as well. Review of Systems Constitutional: Negative. Negative for fever. HENT: Positive for sore throat. Negative for congestion. Respiratory: Positive for cough and sputum production. Negative for shortness of breath. Cardiovascular: Negative. Negative for chest pain. Skin: Negative. Negative for rash. BP 120/84 Pulse 65 Temp 36.8 ?C (98.2 ?F) (Left Tympanic) Resp 16 Wt 85.3 kg (188 lb) SpO2 97% BMI 30.58 kg/m2 PAST MEDICAL HISTORY Diagnosis Date - Angioedema Needed intubation - Aortic sclerosis - CKD (chronic kidney disease) stage 4, GFR 15-29 ml/min ([facility]) - Essential hypertension, benign - Heart murmur 01/23/2011 - Hyperparathyroidism due to vitamin D deficiency ([facility]) 04/27/2013 - Lymphedema - Lymphedema of both lower extremities 06/06/2015 - Mitral regurgitation - Polycystic kidney disease 05/31/2012 - Unspecified hypothyroidism - Venous stasis dermatitis of both lower extremities 06/06/2015 - Vitamin D deficiency 04/27/2013 PAST SURGICAL HISTORY Procedure Laterality Date - BALLN ANGIOPLASTY,PERC VENOUS Left 11-01-15 - BX BREAST PERC NEED W/GUID 09/27/06 U/S needle core right breast bx - DELIVERY ONLY 1995 , low cervical - COLONOSCOP W/ OR W/O [facility] SPEC 03/08/15 Colonoscopy - OPN AV ANAS FORARM RADHA TRANSP Left 07-01-15 - PAST SURGICAL HISTORY OF cyst on left hand--benign ALLERGIES Lisinopril; Norvasc [Amlodipine Besylate]; Sulfa (Sulfonamide Antibiotics) MEDICATIONS furosemide (LASIX) 40 mg tablet TAKE 1 TABLET EVERY DAY atorvastatin (LIPITOR) 10 mg tablet Take 1 tablet by mouth once daily. levothyroxine (SYNTHROID) 75 mcg tablet Take 1 tablet by mouth once daily. labetalol (TRANDATE) 200 mg tablet Take 1 tablet by mouth twice daily. aMILoride (MIDAMOR) 5 mg tablet Take 1 tablet by mouth once daily. FERROUS SULFATE (IRON ORAL) Take by mouth. Takes twice daily. Unsure of dosage. aspirin 81 mg chewable tablet Take 1 tablet by mouth once daily. Cholecalciferol, Vitamin D3, 2,000 unit cap Take 1 tablet by mouth once daily. cyanocobalamin (VITAMIN B-12) 1,000 mcg tab Take 1 tablet by mouth once daily. levonorgestrel (MIRENA) 20 mcg/24 hour (5 years) IUD INSERTED IN THE OFFICE FAMILY HISTORY Problem Relation Age of Onset - Hypertension Mother - Heart Mother ARTIFICIAL HEART VALVE - Breast Cancer Mother - Hypertension Father - Ischemic Heart Disease Father - ADPKD [OTHER] Father - Hypertension Brother kidney disease,obesity - Asthma Son - Heart Son - Stroke Brother - Breast Cancer Maternal Aunt - ADPKD [OTHER] Brother on dialysis - ESRD [OTHER] Brother Social History Substance Use Topics - Smoking status: Never Smoker - Smokeless tobacco: Never Used - Alcohol use Yes Comment: rare Objective Physical Exam Constitutional: She is well-developed, well-nourished, and in no distress. HENT: Head: Normocephalic. Right Ear: Tympanic membrane, external ear and ear canal normal. Left Ear: Tympanic membrane, external ear and ear canal normal. Nose: Nose normal. No rhinorrhea or sinus tenderness. Mouth/Throat: Uvula is midline, oropharynx is clear and moist and mucous membranes are normal. No posterior oropharyngeal edema or posterior oropharyngeal erythema. Eyes: Conjunctivae are normal. Right eye exhibits no discharge. Left eye exhibits no discharge. Neck: Neck supple. Cardiovascular: Normal rate, regular rhythm and normal heart sounds. Pulmonary/Chest: Effort normal and breath sounds normal. No respiratory distress. She has no wheezes. She has no rales. Lymphadenopathy: She has no cervical adenopathy. Neurological: She is alert. Skin: Skin is warm and dry. No rash noted. Nursing note and vitals reviewed. ASSESSMENT/PLAN: 1. Viral URI with cough - ICD9: 465.9, ICD10: J06.9, B97.89 - Discussed viral etiology and rationale for treatment. - Symptomatic treatment with prn analgesia - Supportive care with fluids and rest - BENZONATATE 100 MG CAPSULE - GUAIFENESIN ER 600 MG TABLET, EXTENDED RELEASE 12 HR - FLUTICASONE 50 MCG/ACTUATION NASAL SPRAY,SUSPENSION - Follow-up with your PCP in 3-5 days if symptoms have not improved or sooner if symptoms worsen - Discussed red flags and need for immediate medical evaluation if any occur. - Discussed supportive care treatment with fluids, rest and analgesia. - Discussed expected course of illness Leyda Esparza APRN.CNP CNOV Observed: 06/28/2017 Status: COMPLETED Source: [place] 7:00 AM [facility] REPOSITORY Office Visit (WSTR) ARIC ANNE ([id number]) 1965 F TRN Date Time Provider Department 06/28/17 7:00 AM LEYDA ESPARZA (MARTINE) [facility] During your visit today, we recorded the following information about you: Temperature Pulse Respiration Blood pressure 98.2 degrees 65/minute 16/minute 120/84 Weight 85.3 kg Leyda Esparza APRN.CNP 06/28/2017 7:52 AM Signed Subjective HPI Aric Anne is a 52 year old female who presents with cough for the past 5 days. She has taken coricidin at home without relief. Her son has had a cough recently as well. Review of Systems Constitutional: Negative. Negative for fever. HENT: Positive for sore throat. Negative for congestion. Respiratory: Positive for cough and sputum production. Negative for shortness of breath. Cardiovascular: Negative. Negative for chest pain. Skin: Negative. Negative for rash. BP 120/84 Pulse 65 Temp 36.8 ?C (98.2 ?F) (Left Tympanic) Resp 16 Wt 85.3 kg (188 lb) SpO2 97% BMI 30.58 kg/m2 PAST MEDICAL HISTORY Diagnosis Date - Angioedema Needed intubation - Aortic sclerosis - CKD (chronic kidney disease) stage 4, GFR 15-29 ml/min ([facility]) - Essential hypertension, benign - Heart murmur 01/23/2011 - Hyperparathyroidism due to vitamin D deficiency ([facility]) 04/27/2013 - Lymphedema - Lymphedema of both lower extremities 06/06/2015 - Mitral regurgitation - Polycystic kidney disease 05/31/2012 - Unspecified hypothyroidism - Venous stasis dermatitis of both lower extremities 06/06/2015 - Vitamin D deficiency 04/27/2013 PAST SURGICAL HISTORY Procedure Laterality Date - BALLN ANGIOPLASTY,PERC VENOUS Left 11-01-15 - BX BREAST PERC NEED W/GUID 09/27/06 U/S needle core right breast bx - DELIVERY ONLY 1995 , low cervical - COLONOSCOP W/ OR W/O [facility] SPEC 03/08/15 Colonoscopy - OPN AV ANAS FORARM RADHA TRANSP Left 07-01-15 - PAST SURGICAL HISTORY OF cyst on left hand--benign ALLERGIES Lisinopril; Norvasc [Amlodipine Besylate]; Sulfa (Sulfonamide Antibiotics) MEDICATIONS furosemide (LASIX) 40 mg tablet TAKE 1 TABLET EVERY DAY atorvastatin (LIPITOR) 10 mg tablet Take 1 tablet by mouth once daily. levothyroxine (SYNTHROID) 75 mcg tablet Take 1 tablet by mouth once daily. labetalol (TRANDATE) 200 mg tablet Take 1 tablet by mouth twice daily. aMILoride (MIDAMOR) 5 mg tablet Take 1 tablet by mouth once daily. FERROUS SULFATE (IRON ORAL) Take by mouth. Takes twice daily. Unsure of dosage. aspirin 81 mg chewable tablet Take 1 tablet by mouth once daily. Cholecalciferol, Vitamin D3, 2,000 unit cap Take 1 tablet by mouth once daily. cyanocobalamin (VITAMIN B-12) 1,000 mcg tab Take 1 tablet by mouth once daily. levonorgestrel (MIRENA) 20 mcg/24 hour (5 years) IUD INSERTED IN THE OFFICE FAMILY HISTORY Problem Relation Age of Onset - Hypertension Mother - Heart Mother ARTIFICIAL HEART VALVE - Breast Cancer Mother - Hypertension Father - Ischemic Heart Disease Father - ADPKD [OTHER] Father - Hypertension Brother kidney disease,obesity - Asthma Son - Heart Son - Stroke Brother - Breast Cancer Maternal Aunt - ADPKD [OTHER] Brother on dialysis - ESRD [OTHER] Brother Social History Substance Use Topics - Smoking status: Never Smoker - Smokeless tobacco: Never Used - Alcohol use Yes Comment: rare Objective Physical Exam Constitutional: She is well-developed, well-nourished, and in no distress. HENT: Head: Normocephalic. Right Ear: Tympanic membrane, external ear and ear canal normal. Left Ear: Tympanic membrane, external ear and ear canal normal. Nose: Nose normal. No rhinorrhea or sinus tenderness. Mouth/Throat: Uvula is midline, oropharynx is clear and moist and mucous membranes are normal. No posterior oropharyngeal edema or posterior oropharyngeal erythema. Eyes: Conjunctivae are normal. Right eye exhibits no discharge. Left eye exhibits no discharge. Neck: Neck supple. Cardiovascular: Normal rate, regular rhythm and normal heart sounds. Pulmonary/Chest: Effort normal and breath sounds normal. No respiratory distress. She has no wheezes. She has no rales. Lymphadenopathy: She has no cervical adenopathy. Neurological: She is alert. Skin: Skin is warm and dry. No rash noted. Nursing note and vitals reviewed. ASSESSMENT/PLAN: 1. Viral URI with cough - ICD9: 465.9, ICD10: J06.9, B97.89 - Discussed viral etiology and rationale for treatment. - Symptomatic treatment with prn analgesia - Supportive care with fluids and rest - BENZONATATE 100 MG CAPSULE - GUAIFENESIN ER 600 MG TABLET, EXTENDED RELEASE 12 HR - FLUTICASONE 50 MCG/ACTUATION NASAL SPRAY,SUSPENSION - Follow-up with your PCP in 3-5 days if symptoms have not improved or sooner if symptoms worsen - Discussed red flags and need for immediate medical evaluation if any occur. - Discussed supportive care treatment with fluids, rest and analgesia. - Discussed expected course of illness Leyda Esparza APRN.MARTINE Esparza APRN.CNP 06/28/2017 7:20 AM Signed Treatment for Viral Upper Respiratory Tract Infections Your body will kill off the virus by itself. Additionally, you can prime your body's immune system. This may help you get better more quickly. 1. Drink lots of fluids - at least one gallon of non-caffeinated liquids per day 2. Make sure you are eating well 3. Get plenty of rest - at least 8 hours of sleep per night for adults and more for children We do not have any medications that kill off these viruses. Antibiotics are used to treat bacterial infections; however, they are not active against viral infections. There are some things that might help you feel better, though. 1. Vaporizers, humidifiers, hot showers, and hot fluids help open respiratory and sinus passages 2. Tessalon perles for cough 3. Millen Nasal [place] may offer relief of nasal and head congestion 4. Hans's Vapor Rub placed on a hot towel and draped over the head may relieve congestion 5. Tylenol and Advil help control fevers and headaches 6. Salt water gargles help relieve sore throats 7. Chloraceptic spray or throat lozenges may also help relieve sore throat symptoms 8. Mucinex will help loosen up secretions and also provide relief from a cough Occasionally, viral infections turn into something more serious. You should see your doctor or return to the Urgent Care if: 1. You have fevers for longer than five days 2. You have fevers above 102 degrees 3. You are still sick after 10 days 4. You have shortness of breath or wheezing 5. After several days you are getting worse rather than better Referring Provider: SELF [200] Allergies As of Date: 06/28/2017 Noted Allergy Reaction LISINOPRIL 09/28/2011 7 - Swelling Comments: Tongue swelling. NORVASC (AMLODIPINE BESYLATE) 06/29/2016 7 - Swelling SULFA (SULFONAMIDE ANTIBIOTICS) 12/15/2004 Date Reviewed: 06/28/2017 Reviewed by: Leyda ([facility]) Vilma - Fully Assessed Reason for Visit: Cough [28] Cmt: x 1 week Fever [47] Cmt: Possible fever since last night Primary Visit Diagnosis:Viral URI with cough [J06.9, B97.89] Order(s):benzonatate (TESSALON PERLE) 100 mg capsuleTake 1 capsule by mouth three times daily as needed for up to 10 days.Disp: 30 capsuleRfl: 0 guaiFENesin (MUCINEX) 600 mg 12 hr tabletTake 2 tablets by mouth twice daily for 10 days.Disp: 40 tabletRfl: 0 fluticasone (FLONASE) 50 mcg/actuation nasal sprayUse 2 Sprays in each nostril once daily. Rinse mouth after use.Disp: 1 BottleRfl: 11 Prescriptions as of 06/28/2017 Sig: FUROSEMIDE 40 MG TABLET TAKE 1 TABLET EVERY DAY ATORVASTATIN 10 MG TABLET Take 1 tablet by mouth once d* LEVOTHYROXINE 75 MCG TABLET Take 1 tablet by mouth once d* LABETALOL 200 MG TABLET Take 1 tablet by mouth twice * AMILORIDE 5 MG TABLET Take 1 tablet by mouth once d* IRON ORAL Take by mouth. Takes twice d* ASPIRIN 81 MG CHEWABLE TABLET Take 1 tablet by mouth once d* CHOLECALCIFEROL (VITAMIN D3) * Take 1 tablet by mouth once d* CYANOCOBALAMIN (VIT B-12) 1,0* Take 1 tablet by mouth once d* LEVONORGESTREL 20 MCG/24 HR (* INSERTED IN THE OFFICE BENZONATATE 100 MG CAPSULE Take 1 capsule by mouth three* GUAIFENESIN ER 600 MG TABLET,* Take 2 tablets by mouth twice* FLUTICASONE 50 MCG/ACTUATION * Use 2 Sprays in each nostril * Problem List As Of Date 06/28/2017 Noted Resolved BENIGN HYPERTENSION [I10] INVALID FOR* Hypothyroidism [E03.9] INVALID FOR* Hyperlipidemia LDL goal <100 [E78.5] INVALID FOR* Abnormal mammogram, unspecified [R92.8] INVALID FOR*02/02/2014 Alopecia [L65.9] INVALID FOR* Heart murmur [R01.1] INVALID FOR*07/05/2014 Polycystic kidney disease [Q61.3] INVALID FOR* CKD (chronic kidney disease) stage 3, GFR 30-59*INVALID FOR*07/05/2014 Hyperparathyroidism due to vitamin D deficiency*INVALID FOR* Vitamin D deficiency [E55.9] INVALID FOR* Aortic sclerosis (HCC) [RNI9283] INVALID FOR* Mitral regurgitation [I34.0] INVALID FOR* Chronic kidney disease, stage IV (severe) (HCC)*INVALID FOR* More... Colon cancer screening [Z12.11] INVALID FOR*03/08/2015 Lymphedema of both lower extremities [I89.0] INVALID FOR* Venous stasis dermatitis of both lower extremit*INVALID FOR* Complication of arteriovenous dialysis fistula *INVALID FOR* Other instructions from your clinician: Treatment for Viral Upper Respiratory Tract Infections Your body will kill off the virus by itself. Additionally, you can prime your body's immune system. This may help you get better more quickly. 1. Drink lots of fluids - at least one gallon of non-caffeinated liquids per day 2. Make sure you are eating well 3. Get plenty of rest - at least 8 hours of sleep per night for adults and more for children We do not have any medications that kill off these viruses. Antibiotics are used to treat bacterial infections; however, they are not active against viral infections. There are some things that might help you feel better, though. 1. Vaporizers, humidifiers, hot showers, and hot fluids help open respiratory and sinus passages 2. Tessalon perles for cough 3. Millen Nasal [place] may offer relief of nasal and head congestion 4. Hans's Vapor Rub placed on a hot towel and draped over the head may relieve congestion 5. Tylenol and Advil help control fevers and headaches 6. Salt water gargles help relieve sore throats 7. Chloraceptic spray or throat lozenges may also help relieve sore throat symptoms 8. Mucinex will help loosen up secretions and also provide relief from a cough Occasionally, viral infections turn into something more serious. You should see your doctor or return to the Urgent Care if: 1. You have fevers for longer than five days 2. You have fevers above 102 degrees 3. You are still sick after 10 days 4. You have shortness of breath or wheezing 5. After several days you are getting worse rather than better Prescriptions ordered this encounter Disp Refills Start End BENZONATATE 100 MG CAPSULE 30 c* 0 06/28/2017 07/08/2017 Route: ORAL Sig: Take 1 capsule by mouth three times daily as needed for up to 10 days. GUAIFENESIN ER 600 MG TABLET, EXTEND* 40 t* 0 06/28/2017 07/08/2017 Route: ORAL Sig: Take 2 tablets by mouth twice daily for 10 days. FLUTICASONE 50 MCG/ACTUATION NASAL S* 1 Jairo* 11 06/28/2017 Route: EACH NOSTRIL Sig: Use 2 Sprays in each nostril once daily. Rinse mouth after use. Letter Text Leyda Esparza APRN.[facility] Urgent Care [address] [facility] [address] Dept: [phone] 06/28/2017 Aric Adrian Anne [address] [address] To Whom it May Concern: This is to certify that Aric M Omid was seen at our office for medical care. Aric may return to work on 06/29/2017. If you have any questions please feel free to call. Sincerely: Leyda Esparza APRN.[facility] Encounter Status:Closed by LEYDA ESPARZA on 06/28/17 GROUP A STREP BY Collected: 06/25/2017 Status: F Source: [facility] 2:09 PM [facility] REPOSITORY TYPE CODE TESTS RESULT OUT OF REFERENCE UNITS RANGE LAB GASSRC Throat Swab GAS Specimen Source LAB PCRGAS Negative for Group A Strep Group A PCR Streptococcus by PCR. Result Comment: This test was developed and its performance characteristics determined by [facility] It has not been cleared or approved by the FDA. -[facility] is regulated under CLIA as qualified to perform high-complexity testing. This test is used for clinical purposes. It should not be regarded as inv estigational or for research. Performed By: #### GASPCR #### [facility] [address] [place], [place] [address] PROGRESS Observed: 06/25/2017 Status: COMPLETED Source: [place] 2:00 PM [facility] REPOSITORY HNO ID: [id number] Author: Juno Carrington Service: (none) Author Type: Physician Thermodynamics Teacher Type: Progress Notes Filed: 06/25/2017 2:15 PM Note Text: 06/25/2017 Patient presents with: sore throat, cough and sinus congestion: x 3 days SUBJECTIVE: This is a 52 year old that is here today for Complaint(s) of sore throat and congestion x 3 days. + nasal drainage. Denies fever/chills, SOB, wheezing PAST MEDICAL HISTORY Diagnosis Date - Angioedema Needed intubation - Aortic sclerosis - CKD (chronic kidney disease) stage 4, GFR 15-29 ml/min ([facility]) - Essential hypertension, benign - Heart murmur 01/23/2011 - Hyperparathyroidism due to vitamin D deficiency ([facility]) 04/27/2013 - Lymphedema - Lymphedema of both lower extremities 06/06/2015 - Mitral regurgitation - Polycystic kidney disease 05/31/2012 - Unspecified hypothyroidism - Venous stasis dermatitis of both lower extremities 06/06/2015 - Vitamin D deficiency 04/27/2013 ALLERGIES Lisinopril; Norvasc [Amlodipine Besylate]; Sulfa (Sulfonamide Antibiotics) MEDICATIONS Current Outpatient Prescriptions: furosemide (LASIX) 40 mg tablet TAKE 1 TABLET EVERY DAY atorvastatin (LIPITOR) 10 mg tablet Take 1 tablet by mouth once daily. levothyroxine (SYNTHROID) 75 mcg tablet Take 1 tablet by mouth once daily. labetalol (TRANDATE) 200 mg tablet Take 1 tablet by mouth twice daily. aMILoride (MIDAMOR) 5 mg tablet Take 1 tablet by mouth once daily. FERROUS SULFATE (IRON ORAL) Take by mouth. Takes twice daily. Unsure of dosage. aspirin 81 mg chewable tablet Take 1 tablet by mouth once daily. Cholecalciferol, Vitamin D3, 2,000 unit cap Take 1 tablet by mouth once daily. cyanocobalamin (VITAMIN B-12) 1,000 mcg tab Take 1 tablet by mouth once daily. levonorgestrel (MIRENA) 20 mcg/24 hour (5 years) IUD INSERTED IN THE OFFICE No current facility-administered medications for this visit. 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 OBJECTIVE: BP 122/80 Pulse 70 Temp 36.7 ?C (98.1 ?F) (Tympanic) Resp 18 Wt 84 kg (185 lb 3.2 oz) SpO2 98% BMI 30.12 kg/m2 APPEARANCE Well appearing, alert, in no acute distress, well-hydrated, well nourished. EYES PERRLA, conjunctiva and sclera normal. EARS External ears normal, canals clear. TMs normal LYNNE NOSE/SINUS Nares normal. Septum midline. Mucosa normal. No drainage or sinus tenderness. THROAT mild erythema, no exudate.uvula midline. NECK Supple, no adenopathy; HEART RRR with normal S1 and S2 LUNG clear to auscultation ASSESSMENT/PLAN: 1. Sore throat - ICD9: 462, ICD10: J02.9 - Rapid Strep negative in the office today and Throat culture pending - Discussed supportive care treatment with fluids, rest and analgesia. - The patient may also use OTC cough and cold meds as needed, warm salt water gargles, throat lozenges and/or OTC throat spray as needed and nasal saline gtts and suction prn. - The patient should follow up in 3-5 days if symptoms persist or worsen - Call back if drooling, increased temperature, symptoms of dehydration and/or still sick in one week - RAPID STREP TEST B/O - GROUP A STREPTOCOCCUS BY PCR Coricidin. The patient indicates understanding of these issues and agrees with the plan. Reviewed red flags and when to seek care sooner. Juno Carrington PA-C CNOV Observed: 06/25/2017 Status: COMPLETED Source: [place] 1:45 PM [facility] REPOSITORY Office Visit (WSTR) ARIC ANNE ([id number]) 1965 F TRN Date Time Provider Department 06/25/17 1:45 PM JUNO CARRINGTON) [place] During your visit today, we recorded the following information about you: Temperature Pulse Respiration Blood pressure 98.1 degrees 70/minute 18/minute 122/80 Weight 84 kg Juno Carrington PA-C 06/25/2017 2:15 PM Signed 06/25/2017 Patient presents with: sore throat, cough and sinus congestion: x 3 days SUBJECTIVE: This is a 52 year old that is here today for Complaint(s) of sore throat and congestion x 3 days. + nasal drainage. Denies fever/chills, SOB, wheezing PAST MEDICAL HISTORY Diagnosis Date - Angioedema Needed intubation - Aortic sclerosis - CKD (chronic kidney disease) stage 4, GFR 15-29 ml/min ([facility]) - Essential hypertension, benign - Heart murmur 01/23/2011 - Hyperparathyroidism due to vitamin D deficiency ([facility]) 04/27/2013 - Lymphedema - Lymphedema of both lower extremities 06/06/2015 - Mitral regurgitation - Polycystic kidney disease 05/31/2012 - Unspecified hypothyroidism - Venous stasis dermatitis of both lower extremities 06/06/2015 - Vitamin D deficiency 04/27/2013 ALLERGIES Lisinopril; Norvasc [Amlodipine Besylate]; Sulfa (Sulfonamide Antibiotics) MEDICATIONS Current Outpatient Prescriptions: furosemide (LASIX) 40 mg tablet TAKE 1 TABLET EVERY DAY atorvastatin (LIPITOR) 10 mg tablet Take 1 tablet by mouth once daily. levothyroxine (SYNTHROID) 75 mcg tablet Take 1 tablet by mouth once daily. labetalol (TRANDATE) 200 mg tablet Take 1 tablet by mouth twice daily. aMILoride (MIDAMOR) 5 mg tablet Take 1 tablet by mouth once daily. FERROUS SULFATE (IRON ORAL) Take by mouth. Takes twice daily. Unsure of dosage. aspirin 81 mg chewable tablet Take 1 tablet by mouth once daily. Cholecalciferol, Vitamin D3, 2,000 unit cap Take 1 tablet by mouth once daily. cyanocobalamin (VITAMIN B-12) 1,000 mcg tab Take 1 tablet by mouth once daily. levonorgestrel (MIRENA) 20 mcg/24 hour (5 years) IUD INSERTED IN THE OFFICE No current facility-administered medications for this visit. 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 OBJECTIVE: BP 122/80 Pulse 70 Temp 36.7 ?C (98.1 ?F) (Tympanic) Resp 18 Wt 84 kg (185 lb 3.2 oz) SpO2 98% BMI 30.12 kg/m2 APPEARANCE Well appearing, alert, in no acute distress, well- hydrated, well nourished. EYES PERRLA, conjunctiva and sclera normal. EARS External ears normal, canals clear. TMs normal [place] NOSE/SINUS Nares normal. Septum midline. Mucosa normal. No drainage or sinus tenderness. THROAT mild erythema, no exudate.uvula midline. NECK Supple, no adenopathy; HEART RRR with normal S1 and S2 LUNG clear to auscultation ASSESSMENT/PLAN: 1. Sore throat - ICD9: 462, ICD10: J02.9 - Rapid Strep negative in the office today and Throat culture pending - Discussed supportive care treatment with fluids, rest and analgesia. - The patient may also use OTC cough and cold meds as needed, warm salt water gargles, throat lozenges and/or OTC throat spray as needed and nasal saline gtts and suction prn. - The patient should follow up in 3-5 days if symptoms persist or worsen - Call back if drooling, increased temperature, symptoms of dehydration and/or still sick in one week - RAPID STREP TEST B/O - GROUP A STREPTOCOCCUS BY PCR [place]. The patient indicates understanding of these issues and agrees with the plan. Reviewed red flags and when to seek care sooner. Juno Carrington PA-C Referring Provider: SELF [200] Allergies As of Date: 06/25/2017 Noted Allergy Reaction LISINOPRIL 09/28/2011 7 - Swelling Comments: Tongue swelling. NORVASC (AMLODIPINE BESYLATE) 06/29/2016 7 - Swelling SULFA (SULFONAMIDE ANTIBIOTICS) 12/15/2004 Date Reviewed: 06/25/2017 Reviewed by: Catarina Laura LPN - Fully Assessed Reason for Visit: sore throat, cough and sinus congestion [Other] Cmt: x 3 days Primary Visit Diagnosis:Sore throat [J02.9] Order(s):RAPID STREP TEST B/O [[id number]] Order #: [id number] GROUP A STREPTOCOCCUS BY PCR [SQGASPCR] Order #: [id number] Prescriptions as of 06/25/2017 Sig: FUROSEMIDE 40 MG TABLET TAKE 1 TABLET EVERY DAY ATORVASTATIN 10 MG TABLET Take 1 tablet by mouth once d* LEVOTHYROXINE 75 MCG TABLET Take 1 tablet by mouth once d* LABETALOL 200 MG TABLET Take 1 tablet by mouth twice * AMILORIDE 5 MG TABLET Take 1 tablet by mouth once d* IRON ORAL Take by mouth. Takes twice d* ASPIRIN 81 MG CHEWABLE TABLET Take 1 tablet by mouth once d* CHOLECALCIFEROL (VITAMIN D3) * Take 1 tablet by mouth once d* CYANOCOBALAMIN (VIT B-12) 1,0* Take 1 tablet by mouth once d* LEVONORGESTREL 20 MCG/24 HR (* INSERTED IN THE OFFICE Problem List As Of Date 06/25/2017 Noted Resolved BENIGN HYPERTENSION [I10] INVALID FOR* Hypothyroidism [E03.9] INVALID FOR* Hyperlipidemia LDL goal <100 [E78.5] INVALID FOR* Abnormal mammogram, unspecified [R92.8] INVALID FOR*02/02/2014 Alopecia [L65.9] INVALID FOR* Heart murmur [R01.1] INVALID FOR*07/05/2014 Polycystic kidney disease [Q61.3] INVALID FOR* CKD (chronic kidney disease) stage 3, GFR 30-59*INVALID FOR*07/05/2014 Hyperparathyroidism due to vitamin D deficiency*INVALID FOR* Vitamin D deficiency [E55.9] INVALID FOR* Aortic sclerosis (HCC) [[id number]] INVALID FOR* Mitral regurgitation [I34.0] INVALID FOR* Chronic kidney disease, stage IV (severe) (HCC)*INVALID FOR* More... Colon cancer screening [Z12.11] INVALID FOR*03/08/2015 Lymphedema of both lower extremities [I89.0] INVALID FOR* Venous stasis dermatitis of both lower extremit*INVALID FOR* Complication of arteriovenous dialysis fistula *INVALID FOR* Encounter Status:Closed by JUNO CARRINGTON PA-C on 06/25/17 HH, HEMOGLOBIN AND Collected: 06/11/2017 Status: F Source: [place] [facility] 8:48 AM [facility] REPOSITORY TYPE CODE TESTS RESULT OUT OF RANGE REFERENCE UNITS LAB L100.1300 12.0-15.0 g/dl Low HGB 8.2 LAB L100.1400 37-47 % Low HCT 25.8 Performed By: #### L100.0600 #### [facility] [address] [place], [address] CNCO Observed: 04/30/2017 Status: COMPLETED Source: [place] 12:00 AM [facility] REPOSITORY Letter Text Kidney and Pancreas Transplant Pre-Transplant Department April 30, 2017 Dear Patient, The Centers for Medicare AND Medicaid Services (CMS), a branch of the U.S. Department of Health and Human Services, is the federal agency that administers the Medicare program and monitors the Medicaid programs offered by each state. As a Medicare approved transplant program, we are required to provide you with our most recent one year patient and graft survival on a regular basis. The data is published by the Scientific Registry of Transplant Recipients (SRTR) which is the national database for organ transplant statistics. More information regarding SRTR can be found online at www.srtr.org. The information below reflects outcomes for patients following transplant for the following time period: Kidney Transplant SRTR Report: Release Date: 03/26/2017 Transplants from donors performed between 09/19/2013 and 03/21/2016 [facility] Results Expected Results [place] Results Adult 1 yr. Graft Survival* 90.20% 94.08% 94.01% Adult 1 yr. Patient Survival 94.62% 96.89% 96.58% Pediatric 1 yr. Graft Survival 100.00% 97.84% 97.84% Pediatric 1 yr. Patient Survival 100.00% --% 99.61% *Adult kidney transplant results at [facility] for 1-year graft survival outcomes were lower than the expected results. Pediatric kidney transplant results at [facility] for 1-year graft survival outcomes were higher than the expected results. Kidney Transplant SRTR Report: Release Date: 03/26/2017 Transplants from living donors performed between 09/19/2013 and 03/21/2016 [facility] Results Expected Results [place] Results Adult 1 yr. Graft Survival* 93.20% 97.80% 97.81% Adult 1 yr. Patient Survival 100.00% 99.01% 98.91% *Adult kidney transplant results at [facility] for 1-year graft survival outcomes were lower than the expected results. Kidney-Pancreas Transplant SRTR Report: Release Date: 03/26/2017 Transplants from donors performed between 09/19/2013 and 03/21/2016 [facility] Results Expected Results [place] Results Adult 1 yr. Graft Survival: Kidney* 88.89% 95.89% 96.06% Adult 1 yr. Patient Survival: Kidney-Pancreas 88.89% 96.79% 97.72% Adult 1 yr. Graft Survival: Pancreas Pancreas graft survival is not currently reported by [facility] *Kidney-pancreas transplant results at [facility] for 1-year graft survival outcomes were lower than the expected results. Pancreas Transplant SRTR Report: Release Date: 03/26/2017 Transplants from donors performed between 09/19/2013 and 03/21/2016 [facility] Results Expected Results [place] Results Adult 1 yr. Patient Survival: Pancreas alone 100.00% 99.61% 99.25% Adult 1 yr. Patient Survival: Pancreas after Kidney Transplant 100.00% 99.68% 96.88% Adult 1 yr. Graft Survival: Pancreas Pancreas graft survival is not currently reported by SRTR. Determination of ?expected? survival figures involves complicated mathematical models. Such models do not always reflect accurately the complexity and severity of patients at our center. Please see the attached SRTR summary data sheet. We also ask that you take this opportunity and send us any changes to your insurance or contact information including addresses, home phone and cell phone numbers. Maintaining updated and accurate information on file with the transplant program is important in minimizing delays at the time of an organ offer. You have received this letter because you are on our transplant waiting list. Should you have any questions please feel free to call your coordinator or the [facility] Transplant Program at [phone]. Sincerely, The [facility] Kidney and Pancreas Transplant Team CNCO Observed: 04/30/2017 Status: COMPLETED Source: [place] 12:00 AM [facility] REPOSITORY Letter Text Kidney Transplant Pre-Transplant Department April 30, 2017 [facility] Personnel Change Notification To Our Patients and Family Members, This letter is to inform you of a stiles personnel change within the transplant program. Each solid organ transplant program has designated primary medical and surgical physicians. As of March 29, 2017, Dr. Mike Robertson has been approved by the United Organ Network for Organ Sharing (UNOS) as the primary surgeon for the Kidney Transplantation and Living Kidney Donation programs. This notification and the attached transplant coverage policy are requirements for our continued participation with [facility]. As a premier teaching institution, the [facility]?s operational integrity, it quality analyst, and standard of care is monitored and evaluated by the Director of the Transplant Center, the Medical and Surgical Directors of each transplant program and the Transplant Press Operator. If you have any questions or concerns regarding our stiles personnel change, please call the Kidney and Pancreas Pre-Transplant Office at [phone] to discuss with your transplant physician or fitness and wellness coordinator. Sincerely, Tyesha Serna RN, BSN, CNOR, CCTN, CCTC [place] Transplant Garland Machine Operator [facility], [address] [place], [place] [address] /[phone] [id number] PROGRESS Observed: 03/12/2017 Status: COMPLETED Source: [place] 9:14 AM [facility] REPOSITORY HNO ID: [id number] Author: Samantha Gooden (Shira Aguirre Service: (none) Author Type: Nurse Practitioner Type: Progress Notes Filed: 03/12/2017 12:25 PM Note Text: SUBJECTIVE: Chief Complaint: Aric Anne is a 52 year old female who presents for a comprehensive problem evaluation. Lab review. Follows with [facility]. New concerns today include thinning hair on scalp. Denies any itchy, scaly spots. Hair thinning is quite distressing to her, combing over. Follows with Nephrology for Polycystic Kidney Disease, CKD stage IV: Fistula harvest, no dialysis at this time. Lymphedema: was referred to [facility]-for wrapping, patient cancelled due to schedule conflict, has not rescheduled. Wore isaiah wraps couple times only. Notes skin starting to itch so is scratching. Has stressed to patient importance of the exercises and wrapping to reduce risk of ulceration and infection. 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 Component Latest Ref Rng AND Units 02/19/2017 Triglyceride 30 - 149 mg/dL 58 Cholesterol 100 - 199 mg/dL 126 HDL Cholesterol >55 mg/dL 49 (L) VLDL Cholesterol 6 - 40 mg/dL 12 LDL Cholesterol 60 - 129 mg/dL 65 Fasting Time hrs 10 TC:HDL Ratio 1.00 - 5.00 2.57 LDL:HDL Ratio 0.50 - 3.55 1.33 Non HDL Cholesterol 90 - 159 mg/dL 77 (L) TSH 0.400 - 5.500 uU/mL 2.650 Exercises regularly - Minimal exercise associated with work or ADL's Does monthly breast self examination - No Last mammogram was 09/2016, normal PAP is due - No Last PAP was 08/2015, normal, normal HPV Diet is adequate for calcium intake - No DEXA is due - Yes Colon cancer screening is up to date - Yes, 2014 Cholesterol screening is up to date - Yes PAST MEDICAL HISTORY Diagnosis Date - Angioedema Needed intubation - Aortic sclerosis - CKD (chronic kidney disease) stage 4, GFR 15-29 ml/min ([facility]) - Essential hypertension, benign - Heart murmur 01/23/2011 - Hyperparathyroidism due to vitamin D deficiency ([facility]) 04/27/2013 - Lymphedema - Lymphedema of both lower extremities 06/06/2015 - Mitral regurgitation - Polycystic kidney disease 05/31/2012 - Unspecified hypothyroidism - Venous stasis dermatitis of both lower extremities 06/06/2015 - Vitamin D deficiency 04/27/2013 MENSTRUAL HISTORY PERIOD REGULARITY: not applicable, Mirena IUD FLOW CHARACTERISTICS: not applicable DYSMENORRHEA: none CYCLIC SYMPTOMS: none HORMONE REPLACEMENT: never PAST SURGICAL HISTORY Procedure Laterality Date - BALLN ANGIOPLASTY,PERC VENOUS Left 11-01-15 - BX BREAST PERC NEED W/GUID 09/27/06 U/S needle core right breast bx - DELIVERY ONLY 1995 , low cervical - COLONOSCOP W/ OR W/O BRSH SPEC 03/08/15 Colonoscopy - OPN AV ANAS FORARM RADHA TRANSP Left 07-01-15 - PAST SURGICAL HISTORY OF cyst on left hand--benign FAMILY HISTORY Problem Relation Age of Onset - Hypertension Mother - Heart Mother ARTIFICIAL HEART VALVE - Breast Cancer Mother - Hypertension Father - Ischemic Heart Disease Father - ADPKD [OTHER] Father - Hypertension Brother kidney disease,obesity - Asthma Son - Heart Son - Stroke Brother - Breast Cancer Maternal Aunt - ADPKD [OTHER] Brother on dialysis - ESRD [OTHER] Brother Social History Marital status: Single Spouse name: Years of education: 14 Number of children: 1 Occupational History 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 [employer] Social History Main Topics Smoking status: Never Smoker Smokeless status: Never Used Alcohol use: Yes Comment: rare Drug use: No Sexual activity: Yes control/protection: IUD Other Topics Concern Service No Blood Transfusions No Immunization History Administered Date(s) Administered DT(PEDIATRIC) 12/01/1980 10/14/1993 DTP/HIB 1964 1964 1964 01/18/1967 DTaP (Age<7) 07/17/2005 Influenza Seasonal Inj Age 3+ 01/28/2017 Influenza Seasonal Inj Quadrivalent Age 3+ 12/27/2015 Influenza Vaccine, Split-Non Spec 12/19/2011 Influenza Vaccine, Whole 02/20/2005 MMR 10/14/1993 Measles 10/12/1967 OPV 1964 1964 1964 01/18/1967 12/01/1980 Pneumococcal-13 Vac Conjugate 01/10/2016 Zostavax 12/11/2016 Deferred Date(s) Deferred Tdap (Age 7+) 01/10/2016 ACTIVE PROBLEM LIST Essential Hypertension, Benign Hypothyroidism Hyperlipidemia Ldl Goal <100 Alopecia Polycystic Kidney Disease Hyperparathyroidism Due to Vitamin D Deficiency (Hcc) Vitamin D Deficiency Aortic Sclerosis Mitral Regurgitation Chronic Kidney Disease, Stage IV (Severe) (Hcc) Lymphedema of Both Lower Extremities Venous Stasis Dermatitis of Both Lower Extremities Complication of Arteriovenous Dialysis Fistula REVIEW OF SYSTEMS: GENERAL:Denies fever, chills, night sweats, or changes in weight. DERMATOLOGIC: Denies any new skin conditions, rashes or changing moles. Positive: Eczema popliteal EYES: Denies recent visual changes. and Last eye exam was several years ago ENT: Denies hearing loss or tinnitus, Last dental exam was only when a problem RESPIRATORY: Denies any cough, dyspnea, or wheezing. CARDIOVASCULAR: Denies any chest pain with exertion or at rest, palpitations, syncope, or edema. BREASTS: Denies any breast lumps, tenderness, dimpling, skin changes, or nipple discharge. GASTROINTESTINAL: Denies any nausea, vomiting, abdominal pain, heartburn, changes in bowel habit, Denies melena, Denies any rectal bleeding. GENITOURINARY: Denies any urinary frequency, urgency, incontinence, dysuria. Denies vaginal odor, discharge or lesions. Denies irregular vaginal bleeding or spotting. MUSCULOSKELETAL: Denies any joint swelling, crepitus, joint pain, or loss of range of motion., Denies back pain. NEURO: Denies any headaches, tremors, dizziness, vertigo, memory loss, confusion., Denies weakness, numbness or tingling.. PSYCHIATRIC: Denies any sleeping problems, history of abuse, marital discord., Denies any anxiety or depression., Positive for depression at times, follows with a counselor at the counseling center HEMATOLOGIC/LYMPHATIC/IMMUNOLOGIC: Denies anemia, bruising, bleeding abnormalities. ENDOCRINE: Denies any heat or cold intolerance, polyuria or polydipsia. OBJECTIVE: PHYSICAL EXAMINATION: BP 110/68 (BP Site: Right Arm, BP Position: Sitting, BP Cuff Size: Large Adult) Pulse 72 Temp 36.7 ?C (98 ?F) (Tympanic) Resp 18 Ht 167 cm (5' 5.75) Wt 78.9 kg (174 lb) BMI 28.3 kg/m2 GENERAL APPEARANCE: Well appearing, alert, in no acute distress, well-hydrated, well nourished. SKIN: Skin color, texture, turgor normal, no suspicious rashes or lesions HEAD: No significant findings., diffusely thinning hair on scalp. Cradle cap noted, no scaling or suspicious lesions. EYES: PERRLA, EOMI EARS: External ears normal, canals clear, Positive findings: cerumen on left, amount Large NOSE/SINUSES: Nares normal. Septum midline. OROPHARYNX: Lips, mucosa, and tongue normal, teeth and gums normal, oropharynx normal NECK: Supple, full range of motion, no lymphadenopathy, normal thyroid and no carotid bruits BACK: Back symmetric, Normal curvature, ROM normal LUNGS: Normal breath sounds, Clear to auscultation, No wheezes, No crackles HEART:Normal PMI, Regular rate and rhythm, Normal heart sounds, S1 and S2 and positive findings: murmur: 2/6 systolic and ejection low pitched soft murmur LSB ABDOMEN: Soft, Non-tender, No palpable masses, Normal bowel sounds and No hepatosplenomegaly. EXTREMITIES:positive findings: Lymphedema with excoriations bilateral LE, R>L. NEURO: Awake, alert and oriented x 3, Cranial nerves II-XII grossly intact, Reflexes symmetrical, Normal gait and No involuntary motions. ASSESSMENT/PLAN: 1. Encounter for well adult exam with abnormal findings - ICD9: V70.0, ICD10: Z00.01 (primary diagnosis) - Encouraged monthly Breast Self Exam - Vaccination(s) today of Tdap - Follow up for annual exam in one year. 2. Need for vaccination - ICD9: V05.9, ICD10: Z23 - TDAP VACCINE AGE 7+ IM 3. Impacted cerumen of left ear - ICD9: 380.4, ICD10: H61.22 - Ear lavage attempted with small return cerumen. Patient will get debrox and use daily and return as needed for lavage 4. Alopecia of scalp - ICD9: 704.00, ICD10: L65.9 Given numbers of local dermatology offices. - CONSULT TO DERMATOLOGY 5. Polycystic kidney disease - ICD9: 753.12, ICD10: Q61.3 Stage IV CKD - Stable, follows with Nephrology 6. Essential hypertension, benign - ICD9: 401.1, ICD10: I10 - good control - Continue current medication(s) - Recommended regular aerobic exercise. - Goal of BP <130/80 7. Hypothyroidism, unspecified type - ICD9: 244.9, ICD10: E03.9 - Instructed patient on importance of taking on an empty stomach either first thing in the morning or at bedtime. - continue current dose of Synthroid 0.075 mg 8. Lymphedema of both lower extremities - ICD9: 457.1, ICD10: I89.0 -With stasis dermatitis, - Moisturizing lotion daily, may use topical steroid cream prn sparingly, avoid scratching - As above, stressed importance of rescheduling. Attempted to schedule for patient, next available second week in March. 9. Hyperlipidemia LDL goal <100 - ICD9: 272.4, ICD10: E78.5 - good control - Continue current dose of atorvastatin (Lipitor) 10 mg. - ATORVASTATIN 10 MG TABLET Samantha Aguirre, MSN TRANSIT PLANNING DIRECTOR CNOV Observed: 03/12/2017 Status: COMPLETED Source: [place] 9:00 AM [facility] REPOSITORY [facility] ARIC ANNE ([id number]) 1965 F TRN Date Time Provider Department 03/12/17 9:00 AM SAMANTHA AGUIRRE (WEB PORTAL DEVELOPER) [facility]WS During your visit today, we recorded the following information about you: Temperature Pulse Respiration Blood pressure 98 degrees 72/minute 18/minute 110/68 Weight Height 78.9 kg 1.67 m STEVEN Gonzalez TRANSIT PLANNING DIRECTOR 03/12/2017 12:25 PM Signed SUBJECTIVE: Chief Complaint: Aric Anne is a 52 year old female who presents for a comprehensive problem evaluation. Lab review. Follows with [facility]. New concerns today include thinning hair on scalp. Denies any itchy, scaly spots. Hair thinning is quite distressing to her, combing over. Follows with Nephrology for Polycystic Kidney Disease, CKD stage IV: Fistula harvest, no dialysis at this time. Lymphedema: was referred to [facility]-for wrapping, patient cancelled due to schedule conflict, has not rescheduled. Wore isaiah wraps couple times only. Notes skin starting to itch so is scratching. Has stressed to patient importance of the exercises and wrapping to reduce risk of ulceration and infection. 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 Component Latest Ref Rng ANDamp; Units 02/19/2017 Triglyceride 30 - 149 mg/dL 58 Cholesterol 100 - 199 mg/dL 126 HDL Cholesterol ANDgt;55 mg/dL 49 (L) VLDL Cholesterol 6 - 40 mg/dL 12 LDL Cholesterol 60 - 129 mg/dL 65 Fasting Time hrs 10 TC:HDL Ratio 1.00 - 5.00 2.57 LDL:HDL Ratio 0.50 - 3.55 1.33 Non HDL Cholesterol 90 - 159 mg/dL 77 (L) TSH 0.400 - 5.500 uU/mL 2.650 Exercises regularly - Minimal exercise associated with work or ADL's Does monthly breast self examination - No Last mammogram was 09/2016, normal PAP is due - No Last PAP was 08/2015, normal, normal HPV Diet is adequate for calcium intake - No DEXA is due - Yes Colon cancer screening is up to date - Yes, 2014 Cholesterol screening is up to date - Yes PAST MEDICAL HISTORY Diagnosis Date - Angioedema Needed intubation - Aortic sclerosis - CKD (chronic kidney disease) stage 4, GFR 15-29 ml/min ([facility]) - Essential hypertension, benign - Heart murmur 01/23/2011 - Hyperparathyroidism due to vitamin D deficiency ([facility]) 04/27/2013 - Lymphedema - Lymphedema of both lower extremities 06/06/2015 - Mitral regurgitation - Polycystic kidney disease 05/31/2012 - Unspecified hypothyroidism - Venous stasis dermatitis of both lower extremities 06/06/2015 - Vitamin D deficiency 04/27/2013 MENSTRUAL HISTORY PERIOD REGULARITY: not applicable, Mirena IUD FLOW CHARACTERISTICS: not applicable DYSMENORRHEA: none CYCLIC SYMPTOMS: none HORMONE REPLACEMENT: never PAST SURGICAL HISTORY Procedure Laterality Date - BALLN ANGIOPLASTY,PERC VENOUS Left 11-01-15 - BX BREAST PERC NEED W/GUID 09/27/06 U/S needle core right breast bx - DELIVERY ONLY 1995 , low cervical - COLONOSCOP W/ OR W/O BRSH SPEC 03/08/15 Colonoscopy - OPN AV ANAS FORARM RADHA TRANSP Left 07-01-15 - PAST SURGICAL HISTORY OF cyst on left hand--benign FAMILY HISTORY Problem Relation Age of Onset - Hypertension Mother - Heart Mother ARTIFICIAL HEART VALVE - Breast Cancer Mother - Hypertension Father - Ischemic Heart Disease Father - ADPKD [OTHER] Father - Hypertension Brother kidney disease,obesity - Asthma Son - Heart Son - Stroke Brother - Breast Cancer Maternal Aunt - ADPKD [OTHER] Brother on dialysis - ESRD [OTHER] Brother Social History Marital status: Single Spouse name: Years of education: 14 Number of children: 1 Occupational History 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 [employer] Social History Main Topics Smoking status: Never Smoker Smokeless status: Never Used Alcohol use: Yes Comment: rare Drug use: No Sexual activity: Yes control/protection: IUD Other Topics Concern Service No Blood Transfusions No Immunization History Administered Date(s) Administered DT(PEDIATRIC) 12/01/1980 10/14/1993 DTP/HIB 1964 1964 1964 01/18/1967 DTaP (AgeANDlt;7) 07/17/2005 Influenza Seasonal Inj Age 3+ 01/28/2017 Influenza Seasonal Inj Quadrivalent Age 3+ 12/27/2015 Influenza Vaccine, Split-Non Spec 12/19/2011 Influenza Vaccine, Whole 02/20/2005 MMR 10/14/1993 Measles 10/12/1967 OPV 1964 1964 1964 01/18/1967 12/01/1980 Pneumococcal-13 Vac Conjugate 01/10/2016 Zostavax 12/11/2016 Deferred Date(s) Deferred Tdap (Age 7+) 01/10/2016 ACTIVE PROBLEM LIST Essential Hypertension, Benign Hypothyroidism Hyperlipidemia Ldl Goal ANDlt;100 Alopecia Polycystic Kidney Disease Hyperparathyroidism Due to Vitamin D Deficiency (Hcc) Vitamin D Deficiency Aortic Sclerosis Mitral Regurgitation Chronic Kidney Disease, Stage IV (Severe) (Hcc) Lymphedema of Both Lower Extremities Venous Stasis Dermatitis of Both Lower Extremities Complication of Arteriovenous Dialysis Fistula REVIEW OF SYSTEMS: GENERAL:Denies fever, chills, night sweats, or changes in weight. DERMATOLOGIC: Denies any new skin conditions, rashes or changing moles. Positive: Eczema popliteal EYES: Denies recent visual changes. and Last eye exam was several years ago ENT: Denies hearing loss or tinnitus, Last dental exam was only when a problem RESPIRATORY: Denies any cough, dyspnea, or wheezing. CARDIOVASCULAR: Denies any chest pain with exertion or at rest, palpitations, syncope, or edema. BREASTS: Denies any breast lumps, tenderness, dimpling, skin changes, or nipple discharge. GASTROINTESTINAL: Denies any nausea, vomiting, abdominal pain, heartburn, changes in bowel habit, Denies melena, Denies any rectal bleeding. GENITOURINARY: Denies any urinary frequency, urgency, incontinence, dysuria. Denies vaginal odor, discharge or lesions. Denies irregular vaginal bleeding or spotting. MUSCULOSKELETAL: Denies any joint swelling, crepitus, joint pain, or loss of range of motion., Denies back pain. NEURO: Denies any headaches, tremors, dizziness, vertigo, memory loss, confusion., Denies weakness, numbness or tingling.. PSYCHIATRIC: Denies any sleeping problems, history of abuse, marital discord., Denies any anxiety or depression., Positive for depression at times, follows with a counselor at the counseling center HEMATOLOGIC/LYMPHATIC/IMMUNOLOGIC: Denies anemia, bruising, bleeding abnormalities. ENDOCRINE: Denies any heat or cold intolerance, polyuria or polydipsia. OBJECTIVE: PHYSICAL EXAMINATION: BP 110/68 (BP Site: Right Arm, BP Position: Sitting, BP Cuff Size: Large Adult) Pulse 72 Temp 36.7 ?C (98 ?F) (Tympanic) Resp 18 Ht 167 cm (5' 5.75ANDquot;) Wt 78.9 kg (174 lb) BMI 28.3 kg/m2 GENERAL APPEARANCE: Well appearing, alert, in no acute distress, well-hydrated, well nourished. SKIN: Skin color, texture, turgor normal, no suspicious rashes or lesions HEAD: No significant findings., diffusely thinning hair on scalp. Cradle cap noted, no scaling or suspicious lesions. EYES: PERRLA, EOMI EARS: External ears normal, canals clear, Positive findings: cerumen on left, amount Large NOSE/SINUSES: Nares normal. Septum midline. OROPHARYNX: Lips, mucosa, and tongue normal, teeth and gums normal, oropharynx normal NECK: Supple, full range of motion, no lymphadenopathy, normal thyroid and no carotid bruits BACK: Back symmetric, Normal curvature, ROM normal LUNGS: Normal breath sounds, Clear to auscultation, No wheezes, No crackles HEART:Normal PMI, Regular rate and rhythm, Normal heart sounds, S1 and S2 and positive findings: murmur: 2/6 systolic and ejection low pitched soft murmur LSB ABDOMEN: Soft, Non-tender, No palpable masses, Normal bowel sounds and No hepatosplenomegaly. EXTREMITIES:positive findings: Lymphedema with excoriations bilateral LE, RANDgt;L. NEURO: Awake, alert and oriented x 3, Cranial nerves II-XII grossly intact, Reflexes symmetrical, Normal gait and No involuntary motions. ASSESSMENT/PLAN: 1. Encounter for well adult exam with abnormal findings - ICD9: V70.0, ICD10: Z00.01 (primary diagnosis) - Encouraged monthly Breast Self Exam - Vaccination(s) today of Tdap - Follow up for annual exam in one year. 2. Need for vaccination - ICD9: V05.9, ICD10: Z23 - TDAP VACCINE AGE 7+ IM 3. Impacted cerumen of left ear - ICD9: 380.4, ICD10: H61.22 - Ear lavage attempted with small return cerumen. Patient will get debrox and use daily and return as needed for lavage 4. Alopecia of scalp - ICD9: 704.00, ICD10: L65.9 Given numbers of local dermatology offices. - CONSULT TO DERMATOLOGY 5. Polycystic kidney disease - ICD9: 753.12, ICD10: Q61.3 Stage IV CKD - Stable, follows with Nephrology 6. Essential hypertension, benign - ICD9: 401.1, ICD10: I10 - good control - Continue current medication(s) - Recommended regular aerobic exercise. - Goal of BP ANDlt;130/80 7. Hypothyroidism, unspecified type - ICD9: 244.9, ICD10: E03.9 - Instructed patient on importance of taking on an empty stomach either first thing in the morning or at bedtime. - continue current dose of Synthroid 0.075 mg 8. Lymphedema of both lower extremities - ICD9: 457.1, ICD10: I89.0 -With stasis dermatitis, - Moisturizing lotion daily, may use topical steroid cream prn sparingly, avoid scratching - As above, stressed importance of rescheduling. Attempted to schedule for patient, next available second week in March. 9. Hyperlipidemia LDL goal ANDlt;100 - ICD9: 272.4, ICD10: E78.5 - good control - Continue current dose of atorvastatin (Lipitor) 10 mg. - ATORVASTATIN 10 MG TABLET Samantha Aguirre, MSN TRANSIT PLANNING DIRECTOR Referring Provider: SELF [200] Allergies As of Date: 03/12/2017 Noted Allergy Reaction LISINOPRIL 09/28/2011 7 - Swelling Comments: Tongue swelling. NORVASC (AMLODIPINE BESYLATE) 06/29/2016 7 - Swelling SULFA (SULFONAMIDE ANTIBIOTICS) 12/15/2004 Date Reviewed: 03/12/2017 Reviewed by: Jeffy Abernathy LPN - Fully Assessed Reason for Visit: Physical [83] Primary Visit Diagnosis:Encounter for well adult exam with abnormal findings [Z00.01] Other Visit Diagnoses:Need for vaccination [Z23] Impacted cerumen of left ear [H61.22] Alopecia of scalp [L65.9] Polycystic kidney disease [Q61.3] Essential hypertension, benign [I10] Hypothyroidism, unspecified type [E03.9] Lymphedema of both lower extremities [I89.0] Hyperlipidemia LDL goal <100 [E78.5] Order(s):TDAP VACCINE AGE 7+ IM [[id number]] Order #: [id number] CONSULT TO DERMATOLOGY [9006] Order #: [id number]: 1 atorvastatin (LIPITOR) 10 mg tabletTake 1 tablet by mouth once daily.Disp: 30 tabletRfl: 11 Prescriptions as of 03/12/2017 Sig: ATORVASTATIN 10 MG TABLET Take 1 tablet by mouth once d* LEVOTHYROXINE 75 MCG TABLET Take 1 tablet by mouth once d* LABETALOL 200 MG TABLET Take 1 tablet by mouth twice * AMILORIDE 5 MG TABLET Take 1 tablet by mouth once d* IRON ORAL Take by mouth. Takes twice d* FUROSEMIDE 40 MG TABLET Take 1 tablet by mouth once d* ASPIRIN 81 MG CHEWABLE TABLET Take 1 tablet by mouth once d* CHOLECALCIFEROL (VITAMIN D3) * Take 1 tablet by mouth once d* CYANOCOBALAMIN (VIT B-12) 1,0* Take 1 tablet by mouth once d* LEVONORGESTREL 20 MCG/24 HR (* INSERTED IN THE OFFICE Problem List As Of Date 03/12/2017 Noted Resolved BENIGN HYPERTENSION [I10] INVALID FOR* Hypothyroidism [E03.9] INVALID FOR* Hyperlipidemia LDL goal <100 [E78.5] INVALID FOR* Abnormal mammogram, unspecified [R92.8] INVALID FOR*02/02/2014 Alopecia [L65.9] INVALID FOR* Heart murmur [R01.1] INVALID FOR*07/05/2014 Polycystic kidney disease [Q61.3] INVALID FOR* CKD (chronic kidney disease) stage 3, GFR 30-59*INVALID FOR*07/05/2014 Hyperparathyroidism due to vitamin D deficiency*INVALID FOR* Vitamin D deficiency [E55.9] INVALID FOR* Aortic sclerosis (HCC) [DFQ4672] INVALID FOR* Mitral regurgitation [I34.0] INVALID FOR* Chronic kidney disease, stage IV (severe) (HCC)*INVALID FOR* More... Colon cancer screening [Z12.11] INVALID FOR*03/08/2015 Lymphedema of both lower extremities [I89.0] INVALID FOR* Venous stasis dermatitis of both lower extremit*INVALID FOR* Complication of arteriovenous dialysis fistula *INVALID FOR* Prescriptions ordered this encounter Disp Refills Start End ATORVASTATIN 10 MG TABLET 30 t* 11 03/12/2017 Route: ORAL Sig: Take 1 tablet by mouth once daily. Medications Discontinued During This Encounter atorvastatin (LIPITOR) 10 mg tablet 30 t* 11 03/06/2016 03/12/2017 Route: ORAL Sig: Take 1 tablet by mouth once daily. Disc: Reason for discontinue is not on file. Disposition: Return in about 1 year (around 03/12/2018), or if symptoms worsen or fail to improve. Follow-up and Disposition History Recorded Letter Text STEVEN [place], [place] [address] FOOD SOURCES RICH IN IRON List of Grains Rich in Iron: Iron (mg.) Brown rice, 1 cup cooked 0.8 Whole wheat bread, 1 slice 0.9 Wheat germ, 2 tablespoons 1.1 [place] Muffin, 1 plain 1.4 Oatmeal, 1 cup cooked 1.6 Total cereal, 1 ounce 18.0 Cream of Wheat, 1 cup 10.0 Brooke, whole wheat, 1 slice/piece, 6 ? inch 1.9 Spaghetti, enriched, 1 cup, cooked 2.0 Raisin bran cereal, 1 cup 6.3 List of Iron Rich Legumes, Seeds, and Soy: Grady seeds, 1 ounce 1.4 Soy milk, 1 cup 1.4 Kidney beans, ? cup canned 1.6 Chickpeas, ? cup, canned 1.6 Tofu, firm, ? cup 1.8 Soy burger, 1 average 1.8 to 3.9* List of Vegetables Rich in Iron: Broccoli, ? cup, boiled 0.7 Green beans, ? cup, boiled 0.8 Rico beans, baby, frozen, ? cup, boiled 1.8 Beets, 1 cup 1.8 Peas, ? cup frozen, boiled 1.3 Potato, fresh baked, cooked w/skin on 4.0 Vegetables, green leafy, ? cup 2.0 Watermelon, 6 inch x ? inch slice 3.0 A Sample List of Foods Rich in Iron: Blackstrap Molasses, one tablespoon 3.0 Dates or Prunes, ? cup 2.4 Beef, Pork, G[place], three ounces 2.3 to 3.0 Liver (beef, chicken), three ounces 8.0 to 25.0 Clams, Oysters ? cup 3.0 Dark meat [place] ? cup 2.6 Pizza, cheese or pepperoni, ? of 10 inch pie 4.5 to 5.5 * Varies with brand. Check the iron content on the label. Encounter Status:Closed by SAMANTHA AGUIRRE CNP on 03/12/17 ALLERGIES ALLERGIES DATE TYPE / CODE NAME / CODE REACTION SEVERITY SOURCE 02/18/2018 Drug Sulfa Hives Unknown [place] Allergy/416 (Sulfonamide [facility] 136701([facility] Antibiotics)/F[address]) 8556100(RXNORM) Repository 02/18/2018 Drug lisinopril/F0060 Anaphylaxis Unknown [place] Allergy/416 80935(RXNORM) [facility] 139162([facility] Hospital ED CT) Repository 06/29/2016 DRUG AMLODIPINE SWELLING [facility] INGREDI/419 BESYLATE [place] 882491(SNOM Repository ED CT) 09/28/2011 DRUG LISINOPRIL SWELLING High [facility] INGREDI/419 [place] 242330(SNOM Repository ED CT) 12/15/2004 Drug SULFA [facility] Class/29593 (SULFONAMIDE [place] 1003(SNOMED ANTIBIOTICS) Repository CT) ENCOUNTERS ENCOUNTERS ADMIT/DISCHARGE ACCOUNT ADMITTING ENCOUNTER LOCATION SOURCE NUMBER CLASS 02/23/2018/02/25/20 [id number] Ambulatory [address] [place] Repository 02/18/2018 [id number] Ambulatory [facility] ing:MEDOUTP Repository 02/09/2018/02/10/20 [id number] Ambulatory [address] [place] Repository 01/28/2018 [id number] [facility] Rep[facility] 01/14/2018 [id number] [facility] ing:MED[facility]P Repository 01/07/2018/01/08/20 [id number] Ambulatory [address] [place] Repository 12/22/2017/12/24/19 [id number] Ambulatory [address] [place] Repository 12/03/2017/12/04/19 [id number] Ambulatory [address] [place] Repository 12/03/2017 [id number] Ambulatory [facility] [place] Repository 12/03/2017/12/04/19 [id number] Ambulatory [address] [place] Repository 11/19/2017/11/30/19 [id number] Ambulatory [address] [place] Repository 11/12/2017 [id number] [facility] Repository 11/05/2017 [id number] Ambulatory [facility] [place] Repository 10/15/2017 [id number] [facility] ing:MED[facility]P Repository 10/06/2017/10/07/19 [id number] Ambulatory [address] [place] Repository 09/10/2017/09/11/19 [id number] Ambulatory [address] [place] Repository 09/03/2017 [id number] [facility] Repository 08/12/2017/08/13/19 [id number] Ambulatory [address] [place] Repository 08/06/2017 [id number] [facility] ing:MED[facility]P Repository 07/16/2017/07/17/19 [id number] Ambulatory [address] [place] Repository 07/09/2017 [id number] [facility] ing:MED[facility]P Repository 06/28/2017/06/30/19 [id number] Ambulatory [address] [place] Repository 06/25/2017/06/29/19 [id number] Ambulatory [facility] [place] Repository 06/11/2017 [id number] Ambulatory [place] [facility] ing:MEDOUTP Repository 03/12/2017/03/24/[id number] Repository PAYERS PAYERS ENCOUNTER GUARANTOR PAYER SUBSCRIBER SOURCE 02/18/2018 ARIC Campbell Primary RAIC Key[place] [id number] N Insurance:ANTHEMPolic [place]DOB: Community [address] y Number: [id number] [id number] Repository [address]Rma: (330) Date:3129-14-53TT [phone] () [address] [place] [address]44[address]PG: 02/18/2018 Secondary NOT GIVENUNK [place] Insurance:SELF PAY [facility] Number: Effective Repository Date:2018-02-01 01/28/2018 ARIC M Primary ARIC [place] [id number] N Insurance:ANTHEMPolic [place]DOB: Community [address] y Number: [id number], [place] [id number] Repository 38[address]Dwu: (330) Date:8517-24-50EY [phone] () [address] [place] [address] 34055XE: 01/28/2018 Secondary NOT GIVENUNK [place] Insurance:SELF PAY [facility] Number: Effective Repository Date:2018-01-19 01/14/2018 ELVIN CRUZ Primary ARIC [place] [id number] N Insurance:ANTHEMPolic BU[place]DOB: Community [address] y Number: [id number] [id number] Repository 01684Jbg: (201) Date:9150-05-92LM [phone] () [id number] [place] [address] 70257TS: 01/14/2018 Secondary NOT GIVENUNK [place] Insurance:SELF PAY [facility] Number: Effective Repository Date:2018-01-14 11/12/2017 ELVIN CRUZ Primary ARIC [place] [id number] N Insurance:ANTHEMPolic [place]DOB: Community [address] y Number: [id number] [id number] Repository [address]Hly: (330) Date:4149-24-10PL [phone] () [id number], [place] [address]DD: 11/12/2017 Secondary NOT GIVENUNK [place] Insurance:SELF PAY [facility] Number: Effective Repository Date:2017-10-15 10/15/2017 ELVIN NANCY Primary ARIC M [place] [id number] N Insurance:ANTHEMPolic [place]DOB: Community [address] y Number: [id number] [id number] Repository 45[address]Poy: (330) Date:5026-65-76UF [phone] () [id number], [place] [address]RE: 10/15/2017 Secondary NOT GIVENUNK [place] Insurance:SELF PAY [facility] Number: Effective Repository Date:2017-09-03 09/03/2017 Aric Campbell Primary ARIC M [place] [id number] N Insurance:ANTHEMPolic BU[place]DOB: Community [address] y Number: [id number] [place] [id number] Repository [address]Ahw: (330) Date:4054-17-05EL [phone] () [id number], [place] [address]RY: 09/03/2017 Secondary NOT GIVENUNK [place] Insurance:SELF PAY [facility] Number: Effective Repository Date:2017-08-06 08/06/2017 Aric Campbell Primary ARIC M [place] [id number] N Insurance:ANTHEMPolic BUCKLANDDOB: Community [address] y Number: [id number] [place] [id number] Repository [address]Adw: (330) Date:4566-58-44YY [phone] () [id number], [place] [address]WN: 08/06/2017 Secondary NOT GIVENUNK [place] Insurance:SELF PAY [facility] Number: Effective Repository Date:2017-07-09 07/09/2017 Aric Adrian Primary ARIC [place] [id number] N Insurance:ANTHEMPolic [place]DOB: Community [address] y Number: [id number] [place] [id number] Repository [address]Vrv: (330) Date:1585-03-32IV [phone] () [id number] [place] [address]UA: 07/09/2017 Secondary NOT GIVENUNK [place] Insurance:SELF PAY [facility] Number: Effective Repository Date:2017-06-11 06/11/2017 Aric Adrian Primary ARIC [place] [id number] N Insurance:ANTHEMPolic [place]DOB: Community [address] y Number: [id number] [place], [place] [id number] Repository [address]Xen: (330) Date:3043-61-88ZW [phone] () [id number], [place] [address]LG: 06/11/2017 Secondary NOT GIVENUNK [place] Insurance:SELF PAY [facility] Number: Effective Repository Date:2017-06-09
== END ==
PROVIDERS: Family Provider Family Medicine; PCP Family Medicine; Referring Provider Internal Medicine Nephrology; Visit Provider Internal Medicine Nephrology
DX: N18.9 Chronic kidney disease, unspecified (principal); D63.1 Anemia in chronic kidney disease
CPT/HCPCS: 36415; 85025; 96372; J0885

== ENCOUNTER 2018-03-23 09:00 | Outpatient (RCR) | payer BC, SELFPAY ==
--- NOTE | 2018-01-28 10:17 | HP.OTEVAL_ITS ---
Patient's Visit Information ARIC DENNIS is a 52 year old F, referred to Occupational Therapy by VITO Jorge, with a diagnosis of LE lymphedema. Date of Evaluation: 01/28/18 Occupational Therapist: JULIO Ham/Love, CHT - Subjective Subjective: Pt states she has had lymphedema for years. Pt states as a child she has always had swelling on and off. Pt arrives with isaiah warp on her LE. Pt states she does not notice that her leg goes down with sleeping. states some elevation. PT states she did get a compression sock about a year ago, but it did not help and would cause pain. pt states she does have skin issues and has had wounds before. Pt is not sure what compression class her socks were. Pt works 7 hours a day 5 days a week and her leg is more swollen when she gets home. Pt is on a water pill but this does not help her leg. pt states she needs to find something that will work. - Lymphedema (Circumferential Measure) Mid-foot: Right 28cm left 25cm Ankle: right 30cm left 27cm Lower calf: right 48cm left 37cm Largest calf: right 48cm left 32cm Below knee: right 41cm left 38cm - Lower Limb Functional Index Lower Extremity Functional Score: 43 - Goals Demonstrate a 20% reduction in edema by d/c: Yes Demonstrate adequate knowledge of self-bangaging by 1st week: Yes Demonstrate adequate knowledge of self-massage by 2nd week: Yes Demonstrate adequate knowledge skin care/prec by 2nd week: Yes Demonstrate adequate knowledge therapeutic exercises by d/c: Yes Select approp compression garment w/donning/care/wear by d/c: Yes Voice need to replace compression garment every 4-6mo by dc: Yes - Rehabilitation General Assessment: Pt demo with right LE lymphedema stage 2. Therapist ed. pt on lymphedema treatments. Due to cost of alternative compression garments pt would like to pursue short stretch wraps. Pt was given information where she can purchase short stretch compression wraps. Pt agreed and will call and schedule apt when she has the wraps. Pt also ed. on skin care, lymph stim ex and self manual lymph drainage. Rehabilitation Potential: Questionable - Anticipated Interventions Anticipated Interventions: Education re Diagnosis, Education re Self-Bandaging Techniques, Education re Skin Care and Precautions, Education re Correct Donning Tech,Care&Wearing Sched Comp Garments - Visit Plan Frequency: 1x/Week Duration: 2 Weeks TEXT: Thank you for the opportunity to evaluate your patient. For Medicare and Medicare HMO plans, please review the plan of care and approve it. It will need to be FAXED BACK to us at [phone] for Medicare purposes. Please let me know if there are questions or concerns regarding this plan of care. Physician Signature: Date:
--- NOTE | 2018-03-02 10:13 | HP.OT.NRP ---
HP - Discharge Summary - Patient Information ARIC DENNIS was seen in my office for initial evaluation on 01/28/18. The following Plan of Care was established for this patient: Initial Frequency: 1x/Week Initial Duration: 2 Weeks - Anticipated Interventions Anticipated Interventions: Education re Diagnosis, Education re Self-Bandaging Techniques, Education re Skin Care and Precautions, Education re Correct Donning Tech,Care&Wearing Sched Comp Garments This patient was last seen in our office 01/28/18. Pertinent comments regarding their Occupational therapy will appear below: Client was seen for inital OT eval only. Client was to return for ed. on LE wrap, edema mtg and use of compression socks. Client has not scheduled a follow up visit and due to timelapes in therapy services client is D/C at this time. At this point I will be discontinuing this patient from occupational therapy. I would be happy to see this patient again in the future if found appropriate by the physician. Thank you! Bindu Tilley, OTR/L, CHT
== END 2018-03-23 19:00 | disposition home or self-care (01) ==
LOC: OT 09:00
PROVIDERS: Family Provider Family Medicine; PCP Family Medicine; Referring Provider Nurse Practitioner Family; Visit Provider Nurse Practitioner Family
DX: I89.0 Lymphedema, not elsewhere classified (principal)
CPT/HCPCS: 97140; 97166

== ENCOUNTER → 2018-03-24 08:01 | Outpatient (CLI) | payer SELFPAY ==
[2018-02-18 09:17] VITALS: BMI 28.8
[2018-03-24 08:17] VITALS: BP 127/83; PULSE 66; RESP 16; TEMP 36.6; O2SAT 97; BMI 28.8
[2018-03-24 08:35] LABS: Absolute Lymphocyte Count 0.93 X10^3/ul (0.83-4.51); Absolute Neutrophil Count 2.1 X10^3/uL (2.0-7.7); Basophil# 0.02 X10^3/uL; Basophil% 0.6 % (0-1); Eosinophil# 0.15 X10^3/uL; Eosinophils% 4.2 % (0-5); Hematocrit 27.8 % (37-47); Hemoglobin 8.9 g/dl (12.0-15.0); Lymphocyte # 0.93 X10^3/ul (4.0); Lymphocyte % 25.9 % (19-41); Mean Corpuscular Hgb 30.9 pg (27.0-32.0); Mean Corpuscular Volume 96.5 fL (81-99); Mean Platelet Vol. 9.7 fl (6.2-12.0); Monocyte# 0.36 X10^3/uL; Neutrophil # 2.13 X10^3/uL (2.7-7.7); Neutrophil % 59.3 % (47-70); Platelet Count 163 K/mm3 (150-450); RBC Distribution Width CV 12.3 % (11.6-14.6); RBC Distribution Width SD 43.7 fl (35.1-43.9); Red Blood Count 2.88 M/mm3 (4.2-5.4); White Blood Count 3.6 K/mm3 (4.4-11.0)
[2018-03-24 08:40] LABS: POSITIVE COUNT NO; POSITIVE DIFFERENTIAL NO; POSITIVE MORPHOLOGY NO
== END ==
LOC: MEDOUTP 08:01
PROVIDERS: Family Provider Family Medicine; PCP Family Medicine; Referring Provider Internal Medicine Nephrology; Visit Provider Internal Medicine Nephrology
DX: N18.9 Chronic kidney disease, unspecified (principal); D63.1 Anemia in chronic kidney disease
CPT/HCPCS: 36415; 85025; 96372; J0885

== ENCOUNTER → 2018-04-22 08:03 | Outpatient (CLI) | payer BC, SELFPAY ==
[2018-03-24 08:17] VITALS: BMI 28.8
[2018-04-22 08:18] VITALS: BP 121/82; PULSE 60; RESP 16; TEMP 36.3; O2SAT 98
[2018-04-22 08:35] LABS: Basophil# 0.01 X10^3/uL; Basophil% 0.3 % (0-1); Eosinophil# 0.09 X10^3/uL; Eosinophils% 2.6 % (0-5); Hematocrit 28.2 % (37-47); Hemoglobin 8.9 g/dl (12.0-15.0); Lymphocyte % 26.1 % (19-41); Mean Corp Hgb Conc 31.6 g/gl (32-36); Mean Corpuscular Hgb 30.6 pg (27.0-32.0); Mean Corpuscular Volume 96.9 fL (81-99); Mean Platelet Vol. 9.9 fl (6.2-12.0); Monocyte# 0.41 X10^3/uL; Monocyte% 11.9 % (0-10); Neutrophil # 2.04 X10^3/uL (2.7-7.7); Neutrophil % 59.1 % (47-70); Platelet Count 157 K/mm3 (150-450); RBC Distribution Width CV 12.6 % (11.6-14.6); RBC Distribution Width SD 44.3 fl (35.1-43.9); Red Blood Count 2.91 M/mm3 (4.2-5.4); White Blood Count 3.5 K/mm3 (4.4-11.0)
[2018-04-22 08:38] LABS: POSITIVE COUNT NO; POSITIVE DIFFERENTIAL NO; POSITIVE MORPHOLOGY NO
[2018-04-22 08:48] LABS: Ferritin 83 ng/mL (8-252); Iron 88 ug/dL (50-170); Iron Binding Capacity,Total 264 ug/dL (250-450); PERCENT IRON SATURATION 33.3 % (15.0-55.0)
== END ==
LOC: MEDOUTP 08:03
PROVIDERS: Family Provider Family Medicine; PCP Family Medicine; Referring Provider Internal Medicine Nephrology; Visit Provider Internal Medicine Nephrology
DX: N18.9 Chronic kidney disease, unspecified (principal); D63.1 Anemia in chronic kidney disease
CPT/HCPCS: 36415; 82728; 83540; 83550; 85025; 96372; J0885

== ENCOUNTER → 2018-05-18 07:55 | Outpatient (CLI) | payer BC, SELFPAY ==
[2018-03-24 08:17] VITALS: BMI 28.8
[2018-05-18 08:04] VITALS: BP 131/81; PULSE 59; RESP 16; TEMP 36.3; O2SAT 98; BMI 28.8
[2018-05-18 08:25] LABS: Absolute Lymphocyte Count 1.08 X10^3/ul (0.83-4.51); Absolute Neutrophil Count 1.9 X10^3/uL (2.0-7.7); Basophil# 0.03 X10^3/uL; Basophil% 0.9 % (0-1); Eosinophil# 0.08 X10^3/uL; Eosinophils% 2.4 % (0-5); Hematocrit 27.9 % (37-47); Hemoglobin 8.7 g/dl (12.0-15.0); Lymphocyte # 1.08 X10^3/ul (4.0); Lymphocyte % 31.9 % (19-41); Mean Corp Hgb Conc 31.2 g/gl (32-36); Mean Corpuscular Hgb 30.2 pg (27.0-32.0); Mean Corpuscular Volume 96.9 fL (81-99); Mean Platelet Vol. 10.2 fl (6.2-12.0); Monocyte# 0.34 X10^3/uL; Neutrophil # 1.86 X10^3/uL (2.7-7.7); Neutrophil % 54.8 % (47-70); Platelet Count 148 K/mm3 (150-450); RBC Distribution Width CV 12.9 % (11.6-14.6); RBC Distribution Width SD 45.2 fl (35.1-43.9); Red Blood Count 2.88 M/mm3 (4.2-5.4); White Blood Count 3.4 K/mm3 (4.4-11.0)
[2018-05-18 08:32] LABS: POSITIVE COUNT NO; POSITIVE DIFFERENTIAL NO; POSITIVE MORPHOLOGY NO
== END ==
LOC: MEDOUTP 07:55
PROVIDERS: Family Provider Family Medicine; PCP Family Medicine; Referring Provider Internal Medicine Nephrology; Visit Provider Internal Medicine Nephrology
DX: N18.9 Chronic kidney disease, unspecified (principal); D63.1 Anemia in chronic kidney disease
CPT/HCPCS: 36415; 85025; 96372; J0885

== ENCOUNTER → 2018-06-15 07:51 | Outpatient (CLI) | payer BC, SELFPAY ==
[2018-05-18 08:04] VITALS: BMI 28.8
[2018-06-15 08:00] VITALS: BP 123/73; PULSE 58; RESP 16; TEMP 35.8; O2SAT 98; BMI 29.9
[2018-06-15 08:31] LABS: Absolute Lymphocyte Count 1.01 X10^3/ul (0.83-4.51); Absolute Neutrophil Count 1.9 X10^3/uL (2.0-7.7); Basophil# 0.01 X10^3/uL; Basophil% 0.3 % (0-1); Eosinophil# 0.13 X10^3/uL; Eosinophils% 3.8 % (0-5); Hemoglobin 8.7 g/dl (12.0-15.0); Lymphocyte # 1.01 X10^3/ul (4.0); Lymphocyte % 29.6 % (19-41); Mean Corp Hgb Conc 32.2 g/gl (32-36); Mean Corpuscular Hgb 30.9 pg (27.0-32.0); Mean Corpuscular Volume 95.7 fL (81-99); Monocyte# 0.36 X10^3/uL; Monocyte% 10.6 % (0-10); Neutrophil % 55.7 % (47-70); Platelet Count 152 K/mm3 (150-450); RBC Distribution Width SD 45.6 fl (35.1-43.9); Red Blood Count 2.82 M/mm3 (4.2-5.4); White Blood Count 3.4 K/mm3 (4.4-11.0)
[2018-06-15 08:32] LABS: POSITIVE COUNT NO; POSITIVE DIFFERENTIAL NO; POSITIVE MORPHOLOGY NO
== END ==
LOC: MEDOUTP 07:51
PROVIDERS: Family Provider Family Medicine; PCP Family Medicine; Referring Provider Internal Medicine Nephrology; Visit Provider Internal Medicine Nephrology
DX: N18.9 Chronic kidney disease, unspecified (principal); D63.1 Anemia in chronic kidney disease
CPT/HCPCS: 36415; 85025; 96372; J0885

== ENCOUNTER → 2018-07-22 07:58 | Outpatient (CLI) | payer BC, SELFPAY ==
[2018-06-15 08:00] VITALS: BMI 29.9
[2018-07-22 08:11] VITALS: BP 130/77; PULSE 67; RESP 18; TEMP 36.8; O2SAT 97; BMI 29.7
[2018-07-22 08:47] LABS: Absolute Lymphocyte Count 1.05 X10^3/ul (0.83-4.51); Absolute Neutrophil Count 2.2 X10^3/uL (2.0-7.7); Basophil# 0.02 X10^3/uL; Basophil% 0.5 % (0-1); Eosinophil# 0.07 X10^3/uL; Eosinophils% 1.8 % (0-5); Hematocrit 26.2 % (37-47); Hemoglobin 8.5 g/dl (12.0-15.0); Lymphocyte # 1.05 X10^3/ul (4.0); Lymphocyte % 27.6 % (19-41); Mean Corp Hgb Conc 32.4 g/gl (32-36); Mean Corpuscular Hgb 30.9 pg (27.0-32.0); Mean Corpuscular Volume 95.3 fL (81-99); Mean Platelet Vol. 9.8 fl (6.2-12.0); Monocyte# 0.42 X10^3/uL; Monocyte% 11.1 % (0-10); Neutrophil # 2.23 X10^3/uL (2.7-7.7); Neutrophil % 58.7 % (47-70); Platelet Count 126 K/mm3 (150-450); RBC Distribution Width SD 44.7 fl (35.1-43.9); Red Blood Count 2.75 M/mm3 (4.2-5.4); White Blood Count 3.8 K/mm3 (4.4-11.0)
[2018-07-22 08:48] LABS: POSITIVE COUNT NO; POSITIVE DIFFERENTIAL NO; POSITIVE MORPHOLOGY NO
[2018-07-22] MEDS: Epoetin Alfa epbx 10,000 UNITS/ML 18000 UNIT SC (09:24)
[2018-07-22 16:24] LABS: Xtra Tube EP Lab EXTRA TUBE
== END ==
LOC: MEDOUTP 07:58
PROVIDERS: Family Provider Family Medicine; PCP Family Medicine; Referring Provider Internal Medicine Nephrology; Visit Provider Internal Medicine Nephrology
DX: N18.4 Chronic kidney disease, stage 4 (severe) (principal); D63.1 Anemia in chronic kidney disease
CPT/HCPCS: 36415; 85025; 96372; Q5106

== ENCOUNTER 2018-08-20 08:55 | Emergency (ER) | payer BC, SELFPAY ==
[2018-07-22 08:11] VITALS: BMI 29.7
[2018-08-20 08:56] VITALS: BP 131/75; PULSE 112; TEMP 37.6; O2SAT 94; BMI 29.0
--- NOTE | 2018-08-20 09:18 | ED.DCSUM_ITS ---
- ER Visit Summary Date of Service: 08/20/18 Chief Complaint: Left leg swelling History of Present Illness: The patient is a 53 F who presents with left leg swelling that has been getting worse over the past couple days. Patient states her cat scratched her couple days ago. Patient states her pain is aching. Patient states her pain improves with rest. Patient denies any paresthesias or weakness. Patient admits to some subjective chills but denies any fevers. Patient admits to an episode of nausea and vomiting today. Patient denies any chest pain or shortness of breath. Physical Examination: Vital signs are stable except for mild tachycardia of 112. Patient is afebrile here. Patient is in no acute distress. Oral mucosa is pink and moist. Neck is supple. Trachea is midline. There is no JVD noted. Heart was regular rate and rhythm. Lungs are clear and equal bilaterally. There is nonpitting edema of the lower extremities bilaterally, worse on the right. There is some erythema and warmth over the left lower leg. There is no discharge or drainage. There is no abscess formation. There is no induration noted. Test Results: CBC showed a mild anemia with a hemoglobin of 8.5. This was consistent with prior results. White blood cell count was normal. Emergency Department Course and Treatment: Patient was given a dose of Tylenol here. Patient was given a dose of doxycycline here. Patient is given a prescription for doxycycline. Patient was instructed to follow-up with her primary care physician in 3 to 5 days for reevaluation. Patient understood and was agreeable with the plan. Patient was instructed on signs and symptoms which should prompt return to the emergency department. All questions were answered. Disposition: Discharge home Impression: 1. Left leg cellulitis This note was generated with [employer] software. It may contain incorrect words, spelling, and punctuation that were not noted in review of the chart jamee or to signing ED Disposition - Plan for ED Patient: Disposition: Home or Assisted Living Diagnosis: Left leg cellulitis Instructions: ED Infec Skin Cellulitis Prescriptions: Doxycycline 100 mg PO BID #20 cap Referrals: Frank Landis III, MD [Primary Care Provider] - 3-5 Days
[2018-08-20 09:36] VITALS: TEMP 39
[2018-08-20 09:45] LABS: Absolute Neutrophil Count 6.4 X10^3/uL (2.0-7.7); Eosinophil# 0.01 X10^3/uL; Eosinophils% 0.1 % (0-5); Hematocrit 26.6 % (37-47); Hemoglobin 8.5 g/dl (12.0-15.0); Lymphocyte % 2.9 % (19-41); Mean Corpuscular Hgb 30.6 pg (27.0-32.0); Mean Corpuscular Volume 95.7 fL (81-99); Mean Platelet Vol. 9.7 fl (6.2-12.0); Monocyte# 0.19 X10^3/uL; Monocyte% 2.8 % (0-10); Neutrophil # 6.39 X10^3/uL (2.7-7.7); Neutrophil % 94.1 % (47-70); Platelet Count 132 K/mm3 (150-450); RBC Distribution Width CV 12.6 % (11.6-14.6); RBC Distribution Width SD 42.1 fl (35.1-43.9); Red Blood Count 2.78 M/mm3 (4.2-5.4); White Blood Count 6.8 K/mm3 (4.4-11.0)
[2018-08-20 09:47] LABS: Differential Indicated SCAN CRITERIA MET; POSITIVE COUNT NO; POSITIVE DIFFERENTIAL YES; POSITIVE MORPHOLOGY NO
[2018-08-20] MEDS: Acetaminophen 500 MG Tablet 1000 MG PO (09:54)
[2018-08-20] MEDS: Doxycycline 100 MG CAPSULE PO (10:36)
== END 2018-08-20 10:50 | disposition home or self-care (01) ==
PROVIDERS: Emergency Provider Emergency Medicine; Family Provider Family Medicine; PCP Family Medicine
DX: L03.116 Cellulitis of left lower limb (principal); E66.9 Obesity, unspecified; N18.6 End stage renal disease
CPT/HCPCS: 85025; 99282; A4216

== ENCOUNTER → 2018-08-24 | Outpatient (CLI) | payer BC, SELFPAY ==
[2018-07-22 08:11] VITALS: BMI 29.7
[2018-08-20 08:56] VITALS: BMI 29.0
[2018-08-24 08:22] VITALS: BP 126/74; PULSE 69; RESP 16; TEMP 36.9; O2SAT 99; BMI 29.4
[2018-08-24 08:24] LABS: Absolute Lymphocyte Count 0.99 X10^3/ul (0.83-4.51); Absolute Neutrophil Count 2.6 X10^3/uL (2.0-7.7); Basophil# 0.03 X10^3/uL; Basophil% 0.8 % (0-1); Eosinophil# 0.08 X10^3/uL; Hematocrit 25.4 % (37-47); Hemoglobin 8.3 g/dl (12.0-15.0); Lymphocyte # 0.99 X10^3/ul (4.0); Lymphocyte % 24.8 % (19-41); Mean Corp Hgb Conc 32.7 g/gl (32-36); Mean Corpuscular Volume 94.8 fL (81-99); Mean Platelet Vol. 9.9 fl (6.2-12.0); Monocyte# 0.26 X10^3/uL; Monocyte% 6.5 % (0-10); Neutrophil # 2.62 X10^3/uL (2.7-7.7); Neutrophil % 65.6 % (47-70); POSITIVE COUNT NO; POSITIVE DIFFERENTIAL NO; POSITIVE MORPHOLOGY NO; Platelet Count 176 K/mm3 (150-450); RBC Distribution Width CV 13.4 % (11.6-14.6); RBC Distribution Width SD 45.9 fl (35.1-43.9); Red Blood Count 2.68 M/mm3 (4.2-5.4)
[2018-08-24] MEDS: Epoetin Alfa epbx 10,000 UNITS/ML 20000 UNIT SC (08:43)
== END | disposition home or self-care (01) ==
LOC: MEDOUTP 07:55
PROVIDERS: Family Provider Family Medicine; PCP Family Medicine; Referring Provider Internal Medicine Nephrology; Visit Provider Internal Medicine Nephrology
DX: N18.4 Chronic kidney disease, stage 4 (severe) (principal); D63.1 Anemia in chronic kidney disease
CPT/HCPCS: 36415; 85025; 96372; Q5106

== ENCOUNTER → 2018-09-21 07:42 | Outpatient (CLI) | payer BC, SELFPAY ==
[2018-08-24 08:22] VITALS: BMI 29.4
[2018-09-21 07:49] VITALS: BP 133/70; PULSE 95; RESP 16; TEMP 36.3; O2SAT 98; BMI 30.1
[2018-09-21 08:12] LABS: Absolute Lymphocyte Count 0.86 X10^3/ul (0.83-4.51); Absolute Neutrophil Count 1.6 X10^3/uL (2.0-7.7); Basophil# 0.03 X10^3/uL; Eosinophils% 3.3 % (0-5); Hematocrit 26.4 % (37-47); Hemoglobin 8.5 g/dl (12.0-15.0); Lymphocyte # 0.86 X10^3/ul (4.0); Lymphocyte % 28.8 % (19-41); Mean Corp Hgb Conc 32.2 g/gl (32-36); Mean Corpuscular Hgb 30.6 pg (27.0-32.0); Mean Platelet Vol. 9.7 fl (6.2-12.0); Monocyte# 0.36 X10^3/uL; Neutrophil # 1.64 X10^3/uL (2.7-7.7); Neutrophil % 54.9 % (47-70); Platelet Count 143 K/mm3 (150-450); RBC Distribution Width CV 13.4 % (11.6-14.6); RBC Distribution Width SD 47.1 fl (35.1-43.9); Red Blood Count 2.78 M/mm3 (4.2-5.4)
[2018-09-21 08:16] LABS: POSITIVE COUNT NO; POSITIVE DIFFERENTIAL NO; POSITIVE MORPHOLOGY NO
[2018-09-21] MEDS: Epoetin Alfa-epbx 40,000 UNIT/ML 22000 UNIT SC (08:57)
== END ==
LOC: MEDOUTP 07:42
PROVIDERS: Family Provider Family Medicine; PCP Family Medicine; Referring Provider Internal Medicine Nephrology; Visit Provider Internal Medicine Nephrology
DX: N18.4 Chronic kidney disease, stage 4 (severe) (principal); D63.1 Anemia in chronic kidney disease
CPT/HCPCS: 36415; 85025; 96372; Q5106

== ENCOUNTER → 2018-10-19 07:58 | Outpatient (CLI) | payer BC, SELFPAY ==
[2018-09-21 07:49] VITALS: BMI 30.1
[2018-10-19 08:12] VITALS: BP 129/76; PULSE 62; RESP 15; TEMP 36.1; O2SAT 98; BMI 30.1
[2018-10-19 08:20] LABS: Absolute Lymphocyte Count 0.94 X10^3/uL (0.83-4.51); Absolute Neutrophil Count 1.9 X10^3/uL (2.0-7.7); Basophil# 0.02 X10^3/uL; Basophil% 0.6 % (0-1); Eosinophil# 0.07 X10^3/uL; Eosinophils% 2.2 % (0-5); Hematocrit 28.1 % (37-47); Hemoglobin 9.1 g/dL (12.0-15.0); Lymphocyte # 0.94 X10^3/ul (4.0); Lymphocyte % 29.2 % (19-41); Mean Corp Hgb Conc 32.4 g/dL (32-36); Mean Corpuscular Hgb 31.6 pg (27.0-32.0); Mean Corpuscular Volume 97.6 fL (81-99); Mean Platelet Vol. 10.6 fl (6.2-12.0); Monocyte# 0.31 X10^3/uL; Monocyte% 9.6 % (0-10); NRBC Flagged by Analyzer 0 % (0-5); Neutrophil # 1.87 X10^3/uL (2.7-7.7); Neutrophil % 58.1 % (47-70); Platelet Count 149 K/mm3 (150-450); RBC Distribution Width CV 12.8 % (11.6-14.6); RBC Distribution Width SD 45.7 fl (35.1-43.9); Red Blood Count 2.88 M/mm3 (4.2-5.4); White Blood Count 3.2 K/mm3 (4.4-11.0)
[2018-10-19] MEDS: Epoetin Alfa-epbx 40,000 UNIT/ML 24000 UNIT SC (08:49)
== END ==
LOC: MEDOUTP 07:59
PROVIDERS: Family Provider Family Medicine; PCP Family Medicine; Referring Provider Internal Medicine Nephrology; Visit Provider Internal Medicine Nephrology
DX: N18.4 Chronic kidney disease, stage 4 (severe) (principal); D63.1 Anemia in chronic kidney disease
CPT/HCPCS: 36415; 85025; 96372; Q5106

== ENCOUNTER 2018-11-05 01:54 | Emergency (ER) | payer BC, SELFPAY ==
[2018-10-19 08:12] VITALS: BMI 30.1
[2018-11-05 01:55] VITALS: BP 172/101; PULSE 54; RESP 16; TEMP 36.7; O2SAT 99; BMI 30.1
--- NOTE | 2018-11-05 02:05 | RAD_ITS ---
STUDY: X-RAY - RIGHT WRIST REASON FOR EXAM: Female, 53 years old. Fell out of bed. Swelling. TECHNIQUE: 3 view(s) of the wrist were obtained. COMPARISON: None. FINDINGS: No visible fracture. No osseous destruction. Alignment anatomic. Mild degenerative changes. Marked soft tissue swelling adjacent to the distal ulna. RAD/Wrist min 3 Views IMPRESSION: No acute osseous abnormality. Marked soft tissue swelling adjacent to the distal ulna. Electronically Signed: Brad Vasquez, at 2:36 EDT Tel , Service support ,
--- NOTE | 2018-11-05 02:06 | ED.DCSUM_ITS ---
History of Present Illness Chief Complaint: Wound Narrative: This patient is a 53-year-old female who presents with a right wrist injury. She fell out of bed about 30 minutes before arrival here. She has a hematoma over the ulnar side of her right wrist. She complains of stinging pain at the site of the injury. There is swelling. She denies any numbness tingling weakness or loss of function. No other injuries. She is not on any anticoagulation. Past Medical History - Allergies and Home Meds Allergies/Adverse Reactions: Allergies lisinopril Allergy (Verified 11/05/18 01:55) Anaphylaxis Sulfa (Sulfonamide Antibiotics) Adverse Reaction (Verified 11/05/18 01:55) Hives Primary Care Physician: Frank Landis III, MD [Primary Care Provider] - Past Medical History: - - Chronic kidney disease, hypothyroidism, hyperlipidemia Surgical History: no surgical history Smoking Status: Never smoker Review of Systems All systems negative except as indicated General: Denies: Fever Cardiovascular: Denies: Chest pain Respiratory: Denies: Dyspnea Gastrointestinal: Denies: Vomiting Musculoskeletal: Reports: Extremity Pain Physical Exam Vital Signs/Narrative: Vital Signs Temp Pulse Resp BP Pulse Ox 11/05/18 01:55 98.0 F 54 L 16 172/101 H 99 General: Well nourished, Well developed Head: Normocephalic Eyes: EOMI ENT: Moist mucous membranes Cardiovascular: Regular rate Respiratory: No distress Extremities: - - There is a hematoma over the ulnar side of the wrist easily palpable radial pulse brisk capillary refill of the digits active full range of motion no focal bony tenderness or bony deformity no tenderness in the hand normal sensation to light touch Diagnostic/Tx/Re-eval Impressions Wrist X-Ray 11/05/18 02:05 IMPRESSION: No acute osseous abnormality. Marked soft tissue swelling adjacent to the distal ulna. Electronically Signed: Milesstephanie Christina, at 2:36 EDT Tel , Service support , 11/05/18 02:05 Wrist min 3 Views [RAD] Stat - Medical Decision Making Patient was given [place] for pain. Right wrist x-ray shows no acute fracture. Patient was given an Trevon wrap. She was advised on supportive care including ice and elevation. Patient was discharged. She understands to return for new or worsening symptoms. ED Disposition - Plan for ED Patient: Disposition: Home or Assisted Living Diagnosis: Traumatic hematoma of right wrist Instructions: Hematoma Referrals: Frank Landis III, MD [Primary Care Provider] -
[2018-11-05] MEDS: HYDROcodone Bitartrate/Apap 5/325 Tablet PO (02:11)
[2018-11-05 03:27] VITALS: RESP 14
== END 2018-11-05 03:27 | disposition home or self-care (01) ==
PROVIDERS: Emergency Provider Emergency Medicine; Family Provider Family Medicine; PCP Family Medicine
DX: S60.211A Contusion of right wrist, initial encounter (principal); W06.XXXA Fall from bed, initial encounter; Z88.2 Allergy status to sulfonamides; Z88.8 Allergy status to other drugs, medicaments and biological substances; N18.9 Chronic kidney disease, unspecified; E78.5 Hyperlipidemia, unspecified; E03.9 Hypothyroidism, unspecified
CPT/HCPCS: 73110; 99283

== ENCOUNTER → 2018-11-16 07:58 | Outpatient (CLI) | payer BC, SELFPAY ==
[2018-10-19 08:12] VITALS: BMI 30.1
[2018-11-05 01:55] VITALS: BMI 30.1
[2018-11-16 08:06] VITALS: BP 129/83; PULSE 60; RESP 18; TEMP 36.2; O2SAT 98; BMI 29.9
[2018-11-16 08:18] LABS: Absolute Lymphocyte Count 0.88 X10^3/uL (0.83-4.51); Absolute Neutrophil Count 1.9 X10^3/uL (2.0-7.7); Basophil# 0.03 X10^3/uL; Basophil% 0.9 % (0-1); Eosinophil# 0.07 X10^3/uL; Eosinophils% 2.2 % (0-5); Hematocrit 28.7 % (37-47); Hemoglobin 9.3 g/dL (12.0-15.0); Lymphocyte # 0.88 X10^3/ul (4.0); Lymphocyte % 27.2 % (19-41); Mean Corp Hgb Conc 32.4 g/dL (32-36); Mean Corpuscular Hgb 31.5 pg (27.0-32.0); Mean Corpuscular Volume 97.3 fL (81-99); Monocyte# 0.33 X10^3/uL; Monocyte% 10.2 % (0-10); NRBC Flagged by Analyzer 0 % (0-5); Neutrophil # 1.92 X10^3/uL (2.7-7.7); Neutrophil % 59.2 % (47-70); Platelet Count 157 K/mm3 (150-450); RBC Distribution Width CV 12.6 % (11.6-14.6); RBC Distribution Width SD 44.8 fl (35.1-43.9); Red Blood Count 2.95 M/mm3 (4.2-5.4); White Blood Count 3.2 K/mm3 (4.4-11.0)
[2018-11-16] MEDS: Epoetin Alfa-epbx 40,000 UNIT/ML 26000 UNIT SC (08:36)
[2018-11-16 08:37] LABS: Ferritin 129 ng/mL (8-252); Iron 105 ug/dL (50-170); Iron Binding Capacity,Total 246 ug/dL (250-450); PERCENT IRON SATURATION 42.7 % (15.0-55.0)
== END ==
LOC: MEDOUTP 07:58
PROVIDERS: Family Provider Family Medicine; PCP Family Medicine; Referring Provider Internal Medicine Nephrology; Visit Provider Internal Medicine Nephrology
DX: N18.4 Chronic kidney disease, stage 4 (severe) (principal); D63.1 Anemia in chronic kidney disease
CPT/HCPCS: 36415; 82728; 83540; 83550; 85025; 96372; Q5106

== ENCOUNTER → 2018-12-14 07:17 | Outpatient (CLI) | payer BC, SELFPAY ==
[2018-11-16 08:06] VITALS: BMI 29.9
[2018-12-14 08:19] LABS: Absolute Lymphocyte Count 0.82 X10^3/uL (0.83-4.51); Basophil# 0.02 X10^3/uL; Basophil% 0.6 % (0-1); Eosinophil# 0.08 X10^3/uL; Eosinophils% 2.4 % (0-5); Hematocrit 30.2 % (37-47); Hemoglobin 9.6 g/dL (12.0-15.0); Lymphocyte # 0.82 X10^3/ul (4.0); Mean Corp Hgb Conc 31.8 g/dL (32-36); Mean Corpuscular Hgb 31.1 pg (27.0-32.0); Mean Corpuscular Volume 97.7 fL (81-99); Mean Platelet Vol. 10.3 fl (6.2-12.0); Monocyte# 0.34 X10^3/uL; Monocyte% 10.4 % (0-10); NRBC Flagged by Analyzer 0 % (0-5); Neutrophil # 2.02 X10^3/uL (2.7-7.7); Neutrophil % 61.6 % (47-70); Platelet Count 156 K/mm3 (150-450); RBC Distribution Width CV 12.7 % (11.6-14.6); RBC Distribution Width SD 45.3 fl (35.1-43.9); Red Blood Count 3.09 M/mm3 (4.2-5.4); White Blood Count 3.3 K/mm3 (4.4-11.0)
[2018-12-14 08:39] VITALS: BP 112/71; PULSE 62; RESP 16; TEMP 36.6; O2SAT 100; BMI 29.7
[2018-12-14] MEDS: Epoetin Alfa-epbx 40,000 UNIT/ML 26000 UNIT SC (08:57)
== END ==
LOC: MEDOUTP 07:17
PROVIDERS: Family Provider Family Medicine; PCP Family Medicine; Referring Provider Internal Medicine Nephrology; Visit Provider Internal Medicine Nephrology
DX: N18.9 Chronic kidney disease, unspecified (principal); D63.1 Anemia in chronic kidney disease
CPT/HCPCS: 36415; 85025; 96372; Q5106

== ENCOUNTER → 2019-01-11 07:41 | Outpatient (CLI) | payer BC, SELFPAY ==
[2018-12-14 08:39] VITALS: BMI 29.7
[2019-01-11 08:10] VITALS: BP 111/70; PULSE 63; RESP 18; TEMP 36.4; O2SAT 100; BMI 29.7
[2019-01-11 08:11] LABS: Absolute Lymphocyte Count 0.93 X10^3/uL (0.83-4.51); Absolute Neutrophil Count 2.5 X10^3/uL (2.0-7.7); Basophil# 0.03 X10^3/uL; Basophil% 0.8 % (0-1); Eosinophil# 0.08 X10^3/uL; Eosinophils% 2.1 % (0-5); Hematocrit 29.2 % (37-47); Hemoglobin 9.1 g/dL (12.0-15.0); Lymphocyte # 0.93 X10^3/ul (4.0); Lymphocyte % 24.1 % (19-41); Mean Corp Hgb Conc 31.2 g/dL (32-36); Mean Corpuscular Hgb 30.5 pg (27.0-32.0); Mean Platelet Vol. 10.1 fl (6.2-12.0); Monocyte# 0.33 X10^3/uL; Monocyte% 8.5 % (0-10); NRBC Flagged by Analyzer 0 % (0-5); Neutrophil # 2.48 X10^3/uL (2.7-7.7); Neutrophil % 64.2 % (47-70); Platelet Count 148 K/mm3 (150-450); RBC Distribution Width CV 12.8 % (11.6-14.6); RBC Distribution Width SD 45.9 fl (35.1-43.9); Red Blood Count 2.98 M/mm3 (4.2-5.4); White Blood Count 3.9 K/mm3 (4.4-11.0)
[2019-01-11] MEDS: Epoetin Alfa-epbx 40,000 UNIT/ML 28000 UNIT SC (08:35)
== END ==
LOC: MEDOUTP 07:42
PROVIDERS: Family Provider Family Medicine; PCP Family Medicine; Referring Provider Internal Medicine Nephrology; Visit Provider Internal Medicine Nephrology
DX: N18.4 Chronic kidney disease, stage 4 (severe) (principal); D63.1 Anemia in chronic kidney disease
CPT/HCPCS: 36415; 85025; 96372; Q5106

== ENCOUNTER → 2019-02-08 07:40 | Outpatient (CLI) | payer BC, SELFPAY ==
[2019-01-11 08:10] VITALS: BMI 29.7
[2019-02-08 08:06] VITALS: BP 136/78; PULSE 61; RESP 16; TEMP 35.9; O2SAT 97; BMI 29.7
[2019-02-08 08:18] LABS: Absolute Lymphocyte Count 0.84 X10^3/uL (0.83-4.51); Absolute Neutrophil Count 2.3 X10^3/uL (2.0-7.7); Basophil# 0.02 X10^3/uL; Basophil% 0.5 % (0-1); Eosinophils% 2.7 % (0-5); Hematocrit 28.9 % (37-47); Lymphocyte # 0.84 X10^3/ul (4.0); Lymphocyte % 22.7 % (19-41); Mean Corp Hgb Conc 31.1 g/dL (32-36); Mean Corpuscular Hgb 30.6 pg (27.0-32.0); Mean Corpuscular Volume 98.3 fL (81-99); Mean Platelet Vol. 10.6 fl (6.2-12.0); Monocyte% 10.8 % (0-10); NRBC Flagged by Analyzer 0 % (0-5); Neutrophil # 2.33 X10^3/uL (2.7-7.7); Platelet Count 149 K/mm3 (150-450); RBC Distribution Width CV 12.9 % (11.6-14.6); RBC Distribution Width SD 45.9 fl (35.1-43.9); Red Blood Count 2.94 M/mm3 (4.2-5.4); White Blood Count 3.7 K/mm3 (4.4-11.0)
[2019-02-08 08:35] LABS: Ferritin 121 ng/mL (8-252); Iron 103 ug/dL (50-170); Iron Binding Capacity,Total 236 ug/dL (250-450); PERCENT IRON SATURATION 43.6 % (15.0-55.0)
[2019-02-08] MEDS: Epoetin Alfa-epbx 40,000 UNIT/ML 30000 UNIT SC (08:36)
== END ==
PROVIDERS: Family Provider Family Medicine; PCP Family Medicine; Referring Provider Internal Medicine Nephrology; Visit Provider Internal Medicine Nephrology
DX: N18.4 Chronic kidney disease, stage 4 (severe) (principal); D63.1 Anemia in chronic kidney disease
CPT/HCPCS: 36415; 82728; 83540; 83550; 85025; 96372; Q5106

== ENCOUNTER → 2019-03-08 07:47 | Outpatient (CLI) | payer BC, SELFPAY ==
[2019-02-08 08:06] VITALS: BMI 29.7
[2019-03-08 07:53] VITALS: BP 132/77; PULSE 61; RESP 18; TEMP 36.4; O2SAT 98; BMI 28.8
[2019-03-08 08:13] LABS: Absolute Lymphocyte Count 1.01 X10^3/uL (0.83-4.51); Absolute Neutrophil Count 1.8 X10^3/uL (2.0-7.7); Basophil# 0.03 X10^3/uL; Basophil% 0.9 % (0-1); Eosinophil# 0.09 X10^3/uL; Eosinophils% 2.7 % (0-5); Hematocrit 28.7 % (37-47); Hemoglobin 8.9 g/dL (12.0-15.0); Lymphocyte # 1.01 X10^3/ul (4.0); Lymphocyte % 29.8 % (19-41); Mean Corpuscular Hgb 30.7 pg (27.0-32.0); Mean Platelet Vol. 10.2 fl (6.2-12.0); Monocyte# 0.45 X10^3/uL; Monocyte% 13.3 % (0-10); NRBC Flagged by Analyzer 0 % (0-5); Neutrophil # 1.81 X10^3/uL (2.7-7.7); Neutrophil % 53.3 % (47-70); Platelet Count 151 K/mm3 (150-450); RBC Distribution Width CV 12.9 % (11.6-14.6); RBC Distribution Width SD 46.5 fl (35.1-43.9); White Blood Count 3.4 K/mm3 (4.4-11.0)
[2019-03-08] MEDS: Epoetin Alfa-epbx 40,000 UNIT/ML 32000 UNIT SC (08:36)
== END ==
PROVIDERS: Family Provider Family Medicine; PCP Family Medicine; Referring Provider Internal Medicine Nephrology; Visit Provider Internal Medicine Nephrology
DX: N18.4 Chronic kidney disease, stage 4 (severe) (principal); D63.1 Anemia in chronic kidney disease
CPT/HCPCS: 36415; 85025; 96372; Q5106

== ENCOUNTER → 2019-04-05 07:41 | Outpatient (CLI) | payer BC, SELFPAY ==
[2019-03-08 07:53] VITALS: BMI 28.8
[2019-04-05 08:12] LABS: Absolute Lymphocyte Count 0.88 X10^3/uL (0.83-4.51); Basophil# 0.03 X10^3/uL; Basophil% 0.9 % (0-1); Eosinophil# 0.07 X10^3/uL; Eosinophils% 2.1 % (0-5); Hematocrit 30.3 % (37-47); Hemoglobin 9.4 g/dL (12.0-15.0); Lymphocyte # 0.88 X10^3/ul (4.0); Mean Corpuscular Hgb 30.4 pg (27.0-32.0); Mean Corpuscular Volume 98.1 fL (81-99); Mean Platelet Vol. 10.5 fl (6.2-12.0); Monocyte# 0.37 X10^3/uL; Monocyte% 10.9 % (0-10); NRBC Flagged by Analyzer 0 % (0-5); Neutrophil # 2.03 X10^3/uL (2.7-7.7); Neutrophil % 59.8 % (47-70); Platelet Count 140 K/mm3 (150-450); RBC Distribution Width SD 46.3 fl (35.1-43.9); Red Blood Count 3.09 M/mm3 (4.2-5.4); White Blood Count 3.4 K/mm3 (4.4-11.0)
[2019-04-05 08:24] VITALS: BP 114/70; PULSE 65; RESP 18; TEMP 36.6; O2SAT 99; BMI 29.7
[2019-04-05] MEDS: Epoetin Alfa-epbx 40,000 UNIT/ML 32000 UNIT SC (08:45)
== END ==
LOC: MEDOUTP 07:44
PROVIDERS: Family Provider Family Medicine; PCP Family Medicine; Referring Provider Internal Medicine Nephrology; Visit Provider Internal Medicine Nephrology
DX: N18.4 Chronic kidney disease, stage 4 (severe) (principal); D63.1 Anemia in chronic kidney disease
CPT/HCPCS: 36415; 85025; 96372; Q5106

== ENCOUNTER → 2019-05-03 07:34 | Outpatient (CLI) | payer BC, SELFPAY ==
[2019-04-05 08:24] VITALS: BMI 29.7
[2019-05-03 07:59] VITALS: BP 118/72; PULSE 65; RESP 18; TEMP 36.5; O2SAT 100; BMI 28.8
[2019-05-03 08:12] LABS: Absolute Lymphocyte Count 0.94 X10^3/uL (0.83-4.51); Absolute Neutrophil Count 1.9 X10^3/uL (2.0-7.7); Basophil# 0.02 X10^3/uL; Basophil% 0.6 % (0-1); Eosinophil# 0.08 X10^3/uL; Eosinophils% 2.4 % (0-5); Hematocrit 29.2 % (37-47); Hemoglobin 9.2 g/dL (12.0-15.0); Lymphocyte # 0.94 X10^3/ul (4.0); Lymphocyte % 27.9 % (19-41); Mean Corp Hgb Conc 31.5 g/dL (32-36); Mean Corpuscular Volume 98.3 fL (81-99); Mean Platelet Vol. 9.9 fl (6.2-12.0); Monocyte# 0.38 X10^3/uL; Monocyte% 11.3 % (0-10); NRBC Flagged by Analyzer 0 % (0-5); Neutrophil # 1.94 X10^3/uL (2.7-7.7); Neutrophil % 57.5 % (47-70); Platelet Count 140 K/mm3 (150-450); RBC Distribution Width CV 12.8 % (11.6-14.6); RBC Distribution Width SD 45.6 fl (35.1-43.9); Red Blood Count 2.97 M/mm3 (4.2-5.4); White Blood Count 3.4 K/mm3 (4.4-11.0)
[2019-05-03 08:29] LABS: Ferritin 152 ng/mL (8-252); Iron 107 ug/dL (50-170); Iron Binding Capacity,Total 263 ug/dL (250-450); PERCENT IRON SATURATION 40.7 % (15.0-55.0)
[2019-05-03] MEDS: Epoetin Alfa-epbx 40,000 UNIT/ML 34000 UNIT SC (08:30)
== END ==
LOC: MEDOUTP 07:36
PROVIDERS: Family Provider Family Medicine; PCP Family Medicine; Referring Provider Internal Medicine Nephrology; Visit Provider Internal Medicine Nephrology
DX: N18.4 Chronic kidney disease, stage 4 (severe) (principal); D63.1 Anemia in chronic kidney disease
CPT/HCPCS: 82728; 83540; 83550; 85025; 96372; Q5106

== ENCOUNTER → 2019-05-31 07:55 | Outpatient (CLI) | payer BC, SELFPAY ==
[2019-04-05 08:24] VITALS: BMI 29.7
[2019-05-03 07:59] VITALS: BMI 28.8
[2019-05-31 08:12] VITALS: BP 135/71; PULSE 60; RESP 16; TEMP 36.4; O2SAT 99; BMI 28.8
[2019-05-31 08:31] LABS: Absolute Lymphocyte Count 0.97 X10^3/uL (0.83-4.51); Absolute Neutrophil Count 1.8 X10^3/uL (2.0-7.7); Basophil# 0.02 X10^3/uL; Basophil% 0.6 % (0-1); Eosinophil# 0.07 X10^3/uL; Eosinophils% 2.2 % (0-5); Hemoglobin 8.7 g/dL (12.0-15.0); Lymphocyte # 0.97 X10^3/ul (4.0); Lymphocyte % 30.9 % (19-41); Mean Corp Hgb Conc 31.1 g/dL (32-36); Mean Corpuscular Hgb 30.6 pg (27.0-32.0); Mean Corpuscular Volume 98.6 fL (81-99); Mean Platelet Vol. 10.5 fl (6.2-12.0); Monocyte# 0.31 X10^3/uL; Monocyte% 9.9 % (0-10); NRBC Flagged by Analyzer 0 % (0-5); Neutrophil # 1.77 X10^3/uL (2.7-7.7); Neutrophil % 56.4 % (47-70); Platelet Count 141 K/mm3 (150-450); RBC Distribution Width CV 12.9 % (11.6-14.6); RBC Distribution Width SD 45.9 fl (35.1-43.9); Red Blood Count 2.84 M/mm3 (4.2-5.4); White Blood Count 3.1 K/mm3 (4.4-11.0)
[2019-05-31] MEDS: Epoetin Alfa-epbx 40,000 UNIT/ML 36000 UNIT SC (08:54)
== END ==
LOC: MEDOUTP 07:55
PROVIDERS: PCP Family Medicine; Referring Provider Internal Medicine Nephrology; Visit Provider Internal Medicine Nephrology
DX: N18.5 Chronic kidney disease, stage 5 (principal); E55.9 Vitamin D deficiency, unspecified; N25.81 Secondary hyperparathyroidism of renal origin; D63.1 Anemia in chronic kidney disease
CPT/HCPCS: 36415; 85025; 96372; Q5106

== ENCOUNTER → 2019-06-28 07:51 | Outpatient (CLI) | payer BC, MEDICAID, SELFPAY ==
[2019-05-03 07:59] VITALS: BMI 28.8
[2019-05-31 08:12] VITALS: BMI 28.8
[2019-06-28 07:57] VITALS: BP 128/73; PULSE 60; RESP 16; TEMP 36.2; O2SAT 97; BMI 28.8
[2019-06-28 08:30] LABS: Absolute Lymphocyte Count 1.15 X10^3/uL (0.83-4.51); Absolute Neutrophil Count 1.9 X10^3/uL (2.0-7.7); Basophil# 0.02 X10^3/uL; Basophil% 0.6 % (0-1); Eosinophil# 0.09 X10^3/uL; Eosinophils% 2.5 % (0-5); Hematocrit 28.2 % (37-47); Hemoglobin 8.9 g/dL (12.0-15.0); Lymphocyte # 1.15 X10^3/ul (4.0); Lymphocyte % 32.1 % (19-41); Mean Corp Hgb Conc 31.6 g/dL (32-36); Mean Corpuscular Hgb 30.6 pg (27.0-32.0); Mean Corpuscular Volume 96.9 fL (81-99); Mean Platelet Vol. 10.9 fl (6.2-12.0); Monocyte# 0.39 X10^3/uL; Monocyte% 10.9 % (0-10); NRBC Flagged by Analyzer 0 % (0-5); Neutrophil # 1.92 X10^3/uL (2.7-7.7); Neutrophil % 53.6 % (47-70); Platelet Count 141 K/mm3 (150-450); RBC Distribution Width CV 12.8 % (11.6-14.6); RBC Distribution Width SD 44.8 fl (35.1-43.9); Red Blood Count 2.91 M/mm3 (4.2-5.4); White Blood Count 3.6 K/mm3 (4.4-11.0)
[2019-06-28] MEDS: Epoetin Alfa-epbx 40,000 UNIT/ML 38000 UNIT SC (08:57)
== END ==
PROVIDERS: PCP Family Medicine; Referring Provider Internal Medicine Nephrology; Visit Provider Internal Medicine Nephrology
DX: N18.4 Chronic kidney disease, stage 4 (severe) (principal); D63.1 Anemia in chronic kidney disease
CPT/HCPCS: 36415; 85025; 96372; Q5106

== ENCOUNTER → 2019-07-26 07:49 | Outpatient (CLI) | payer BC, MEDICAID, SELFPAY ==
[2019-06-28 07:57] VITALS: BMI 28.8
[2019-07-26 08:42] LABS: Hematocrit 26.9 % (37-47); Hemoglobin 8.5 g/dL (12.0-15.0); Mean Corp Hgb Conc 31.6 g/dL (32-36); Mean Corpuscular Hgb 30.9 pg (27.0-32.0); Mean Corpuscular Volume 97.8 fL (81-99); Mean Platelet Vol. 10.4 fl (6.2-12.0); Platelet Count 146 K/mm3 (150-450); RBC Distribution Width CV 13.1 % (11.6-14.6); RBC Distribution Width SD 46.3 fl (35.1-43.9); Red Blood Count 2.75 M/mm3 (4.2-5.4); White Blood Count 3.5 K/mm3 (4.4-11.0)
[2019-07-26 08:50] VITALS: BP 122/73; PULSE 65; RESP 16; TEMP 36.4; O2SAT 99; BMI 28.8
[2019-07-26 08:57] LABS: Ferritin 176 ng/mL (8-252); Iron 116 ug/dL (50-170); Iron Binding Capacity,Total 246 ug/dL (250-450)
[2019-07-26] MEDS: Epoetin Alfa-epbx 40,000 UNIT/ML 40000 UNIT SC (08:59)
[2019-07-26 16:36] LABS: Xtra Tube EP Lab EXTRA TUBE
== END ==
PROVIDERS: PCP Family Medicine; Referring Provider Internal Medicine Nephrology; Visit Provider Internal Medicine Nephrology
DX: N18.4 Chronic kidney disease, stage 4 (severe) (principal); D63.1 Anemia in chronic kidney disease
CPT/HCPCS: 36415; 82728; 83540; 83550; 85027; 96372; Q5106

== ENCOUNTER → 2019-08-23 07:54 | Outpatient (CLI) | payer BC, MEDICAID, SELFPAY ==
[2019-06-28 07:57] VITALS: BMI 28.8
[2019-07-26 08:50] VITALS: BMI 28.8
[2019-08-23 08:08] VITALS: BP 132/77; PULSE 60; RESP 16; TEMP 36.1; O2SAT 99; BMI 28.8
[2019-08-23 08:24] LABS: Absolute Neutrophil Count 2.1 X10^3/uL (2.0-7.7); Basophil# 0.03 X10^3/uL; Basophil% 0.8 % (0-1); Eosinophil# 0.12 X10^3/uL; Eosinophils% 3.3 % (0-5); Hematocrit 26.8 % (37-47); Hemoglobin 8.3 g/dL (12.0-15.0); Lymphocyte % 27.2 % (19-41); Mean Corpuscular Hgb 30.4 pg (27.0-32.0); Mean Corpuscular Volume 98.2 fL (81-99); Mean Platelet Vol. 10.3 fl (6.2-12.0); Monocyte% 10.9 % (0-10); NRBC Flagged by Analyzer 0 % (0-5); Neutrophil # 2.12 X10^3/uL (2.7-7.7); Neutrophil % 57.5 % (47-70); Platelet Count 177 K/mm3 (150-450); RBC Distribution Width CV 13.2 % (11.6-14.6); RBC Distribution Width SD 46.8 fl (35.1-43.9); Red Blood Count 2.73 M/mm3 (4.2-5.4); White Blood Count 3.7 K/mm3 (4.4-11.0)
[2019-08-23] MEDS: Epoetin Alfa-epbx 40,000 UNIT/ML 42000 UNIT SC (08:51)
[2019-08-23 08:56] VITALS: BP 132/77; PULSE 60; RESP 16; TEMP 36.1; O2SAT 99
[2019-08-23 16:21] LABS: Xtra Tube EP Lab EXTRA TUBE
== END ==
PROVIDERS: PCP Family Medicine; Referring Provider Internal Medicine Nephrology; Visit Provider Internal Medicine Nephrology
DX: N18.4 Chronic kidney disease, stage 4 (severe) (principal); D63.1 Anemia in chronic kidney disease
CPT/HCPCS: 36415; 85025; 96372; Q5106

== ENCOUNTER → 2019-09-20 07:59 | Outpatient (CLI) | payer BC, MEDICAID, SELFPAY ==
[2019-07-26 08:50] VITALS: BMI 28.8
[2019-08-23 08:08] VITALS: BMI 28.8
[2019-09-20 08:28] LABS: Absolute Neutrophil Count 2.4 X10^3/uL (2.0-7.7); Basophil# 0.02 X10^3/uL; Basophil% 0.5 % (0-1); Eosinophils% 2.6 % (0-5); Hematocrit 26.6 % (37-47); Hemoglobin 8.1 g/dL (12.0-15.0); Lymphocyte % 23.5 % (19-41); Mean Corp Hgb Conc 30.5 g/dL (32-36); Mean Corpuscular Volume 101.9 fL (81-99); Mean Platelet Vol. 10.2 fl (6.2-12.0); Monocyte# 0.42 X10^3/uL; NRBC Flagged by Analyzer 0 % (0-5); Neutrophil # 2.39 X10^3/uL (2.7-7.7); Neutrophil % 62.4 % (47-70); Platelet Count 164 K/mm3 (150-450); RBC Distribution Width CV 13.4 % (11.6-14.6); RBC Distribution Width SD 50.4 fl (35.1-43.9); Red Blood Count 2.61 M/mm3 (4.2-5.4); White Blood Count 3.8 K/mm3 (4.4-11.0)
[2019-09-20 08:45] VITALS: BP 138/79; PULSE 62; RESP 18; TEMP 36.1; BMI 29.7
[2019-09-20] MEDS: Epoetin Alfa-epbx 40,000 UNIT/ML 44000 UNIT SC (08:51)
[2019-09-20 16:24] LABS: Xtra Tube EP Lab EXTRA TUBE
== END ==
PROVIDERS: PCP Family Medicine; Referring Provider Internal Medicine Nephrology; Visit Provider Internal Medicine Nephrology
DX: N18.4 Chronic kidney disease, stage 4 (severe) (principal); D63.1 Anemia in chronic kidney disease
CPT/HCPCS: 36415; 85025; 96372; Q5106

== ENCOUNTER → 2019-10-25 08:00 | Outpatient (CLI) | payer BC, MEDICAID, SELFPAY ==
[2019-08-23 08:08] VITALS: BMI 28.8
[2019-09-20 08:45] VITALS: BMI 29.7
[2019-10-25 08:09] VITALS: BP 137/82; PULSE 60; RESP 16; TEMP 36.3; O2SAT 97; BMI 29.7
[2019-10-25 08:32] LABS: Absolute Neutrophil Count 2.1 X10^3/uL (2.0-7.7); Basophil# 0.02 X10^3/uL; Basophil% 0.6 % (0-1); Eosinophil# 0.06 X10^3/uL; Eosinophils% 1.8 % (0-5); Hemoglobin 9.8 g/dL (12.0-15.0); Lymphocyte % 23.4 % (19-41); Mean Corp Hgb Conc 31.6 g/dL (32-36); Mean Corpuscular Hgb 32.5 pg (27.0-32.0); Mean Corpuscular Volume 102.6 fL (81-99); Mean Platelet Vol. 10.1 fl (6.2-12.0); Monocyte# 0.41 X10^3/uL; NRBC Flagged by Analyzer 0 % (0-5); Neutrophil # 2.12 X10^3/uL (2.7-7.7); Neutrophil % 61.9 % (47-70); Platelet Count 133 K/mm3 (150-450); RBC Distribution Width SD 50.5 fl (35.1-43.9); Red Blood Count 3.02 M/mm3 (4.2-5.4); White Blood Count 3.4 K/mm3 (4.4-11.0)
[2019-10-25 08:55] LABS: Ferritin 68 ng/mL (8-252); Iron 51 ug/dL (50-170); Iron Binding Capacity,Total 227 ug/dL (250-450)
[2019-10-25] MEDS: Epoetin Alfa-epbx 40,000 UNIT/ML 44000 UNIT SC (09:21)
== END ==
PROVIDERS: PCP Family Medicine; Referring Provider Internal Medicine Nephrology; Visit Provider Internal Medicine Nephrology
DX: N18.4 Chronic kidney disease, stage 4 (severe) (principal); D63.1 Anemia in chronic kidney disease
CPT/HCPCS: 36415; 82728; 83540; 83550; 85025; 96372; Q5106

== ENCOUNTER → 2019-11-21 07:54 | Outpatient (CLI) | payer BC, MEDICAID, SELFPAY ==
[2019-09-20 08:45] VITALS: BMI 29.7
[2019-10-25 08:09] VITALS: BMI 29.7
[2019-11-21 08:10] VITALS: BP 138/77; PULSE 57; RESP 16; TEMP 36; O2SAT 97; BMI 29.7
[2019-11-21 08:34] LABS: Absolute Lymphocyte Count 1.05 X10^3/uL (0.83-4.51); Basophil# 0.02 X10^3/uL; Basophil% 0.6 % (0-1); Eosinophil# 0.08 X10^3/uL; Eosinophils% 2.2 % (0-5); Hematocrit 32.1 % (37-47); Lymphocyte # 1.05 X10^3/ul (4.0); Lymphocyte % 29.4 % (19-41); Mean Corp Hgb Conc 31.2 g/dL (32-36); Mean Corpuscular Hgb 31.5 pg (27.0-32.0); Mean Corpuscular Volume 101.3 fL (81-99); Mean Platelet Vol. 10.6 fl (6.2-12.0); Monocyte# 0.45 X10^3/uL; Monocyte% 12.6 % (0-10); NRBC Flagged by Analyzer 0 % (0-5); Neutrophil # 1.97 X10^3/uL (2.7-7.7); Neutrophil % 55.2 % (47-70); Platelet Count 144 K/mm3 (150-450); RBC Distribution Width CV 12.7 % (11.6-14.6); RBC Distribution Width SD 47.5 fl (35.1-43.9); Red Blood Count 3.17 M/mm3 (4.2-5.4); White Blood Count 3.6 K/mm3 (4.4-11.0)
[2019-11-21] MEDS: Epoetin Alfa-epbx 40,000 UNIT/ML 44000 UNIT SC (08:54)
[2019-11-21 16:23] LABS: Xtra Tube EP Lab EXTRA TUBE
[2019-11-21 16:25] LABS: Xtra Tube EP Lab EXTRA TUBE
== END ==
PROVIDERS: PCP Family Medicine; Referring Provider Internal Medicine Nephrology; Visit Provider Internal Medicine Nephrology
DX: N18.4 Chronic kidney disease, stage 4 (severe) (principal); D63.1 Anemia in chronic kidney disease
CPT/HCPCS: 36415; 85025; 96372; Q5106

== ENCOUNTER 2020-02-10 14:55 | Emergency (ER) | payer BC, MEDICAID, SELFPAY ==
[2019-11-21 08:10] VITALS: BMI 29.7
[2020-02-10 14:55] VITALS: TEMP -17.7; TEMP 0; BMI 38.2
--- NOTE | 2020-02-10 15:07 | ED.VISSUMM ---
- ER Visit Summary Date of Service: 02/10/20 Chief Complaint: Cardiac arrest History of Present Illness: The patient is a [address] Frank Landis. Family last spoke with her this morning at 9 AM. They heard noises and they were unable to open the door. When they went in she was unresponsive. On EMS arrival the patient was in PEA. She received 4 rounds of epinephrine on the way aniline device fine V. fib and was defibrillated once. A Combitube was placed. Physical Examination: General: Patient has no spontaneous pulse or respirations. Neuro; Unresponsive. Does not react to pain. Cardiovascular: Asystole. No heart sounds. Respiratory: Equal breath sounds bilaterally when bagged. She does not have spontaneous respirations. Abdomen: Soft, nondistended. Extremities: 4+ edema on right and 2+ on the left. Emergency Department Course and Treatment: Patient had an IV placed. She was given calcium initially IV as I was told that she had a kidney transplant. She was given bicarb and epinephrine IV. She was given amiodarone IV as she had fine V. fib on the way in. However, every pulse check while here showed asystole on the monitor. Treatment Plan: Patient has an unknown downtime. She is in asystole. I do not think that there is any chance of meaningful neurologic recovery. The patient was pronounced at 1504. Disposition: Impression: 1. Asystole. 2. CPR, unsuccessful. This note was generated with [employer] dictation software. It may contain incorrect words, spelling, and punctuation that were not noted in review of the chart prior to signing ED Disposition - Plan for ED Patient: Referrals: Frank Landis III, MD [Primary Care Provider] -
--- NOTE | 2020-02-10 16:30 | CM.ED ---
Social Work Consult: Danny Mcdermott 14:55 - Responding to Danny Mcdermott. No family present initially. This social services director noting an aunt, Berkley listed on patient chart. 14:57 - Telephone call to Berkley Berkley reports that patient has another aunt, Alexandra that will know more. Alexandra to call this social services director. 15:14 - Telephone call from Alexandra ([phone]). Alexandra reports that patient has a son, Devaughn Anne and brother, Earl Pérez. Nursing staff then updated this social services director that patient family is coming to the hospital. 15:28 - This social services director met with Devaughn ([phone]) and Earl ([phone]). Dr. Corbin updated on family arrival and updated family on patient status. Support provided to Oscar. Best home is choice. Devaughn requests for registration to update patient contact information with Devaughn and Earl. No health care power of regulatory attorney that family is aware of. Medical team updated on home choice. Lakhwinder KHAN, UGO
== END 2020-02-10 17:04 ==
PROVIDERS: Emergency Provider Emergency Medicine; PCP Family Medicine
DX: I46.9 Cardiac arrest, cause unspecified (principal); Z94.0 Kidney transplant status
CPT/HCPCS: 92950; 99282; A4216